=== PATIENT | male | born 1945 | race Caucasian/White ===

== ENCOUNTER 2018-11-17 19:31 | Inpatient (IN) | payer MEDICARE, OTHER, SELFPAY ==
[2018-11-17] VITALS (10 sets, daily range): BP systolic 103–163; BP diastolic 30–94; PULSE 97–114; RESP 12–36; TEMP 36.3–38.3; O2SAT 91–99; BMI 28.0
--- NOTE | 2018-11-17 19:32 | DI.RAD.S_ITS ---
PROCEDURE: XR CHEST 1V INDICATIONS: copd exacerbation, ++ sob TECHNIQUE: One view of the chest was acquired. COMPARISON: None. FINDINGS: Surgical changes and devices: Left-sided pacer. Lungs and pleura: Moderate air space opacity within the left lower lung. No pleural effusions or pneumothorax. Mediastinum: Mediastinal contours appear normal. Heart size is normal. Bones and chest wall: No suspicious bony lesions. Overlying soft tissues appear unremarkable. IMPRESSION: Left lower lobe pneumonia. Follow up plain films of the chest are recommended to ensure resolution, and to exclude underlying or central malignancy. Dictated by: Alicia Aguilar M.D. on 11/17/2018 at 20:14 Approved by: Alicia Aguilar M.D. on 11/17/2018 at 20:15
[2018-11-17 19:40] LABS: Add Manual Diff / Slide Review NO; Basophils Absolute Auto 100 /uL (0-100); Basophils Percent Auto 0.7 % (0-2); Eosinophils Absolute Auto 400 /uL (0-450); Eosinophils Percent Auto 1.9 % (2-4); Hematocrit 41.4 % (41-53); Hemoglobin 13.9 g/dL (13.5-17.5); Lymphocytes Absolute Auto 2600 /uL (1100-4500); Lymphocytes Percent Auto 11.6 % (25-40); Mean Corpuscular HGB Conc 33.5 % (30-36); Mean Corpuscular Hemoglobin 31.1 PG (26-34); Mean Corpuscular Volume 92.7 fL (80-100); Monocytes Absolute Auto 3000 /uL (0-900); Monocytes Percent Auto 13.3 % (3-14); Neutrophils Absolute Auto 16100 /uL (1500-7000); Neutrophils Percent Auto 72.5 % (50-75); Platelet Count 377 X10^3/uL (150-400); Red Blood Cell Count 4.46 X10^6/uL (4.5-5.9); Red Cell Distribution Width 14.5 % (11.6-14.8); White Blood Cell Count 22.2 X10^3/uL (4.5-11.0)
--- NOTE | 2018-11-17 19:51 | ED_ITS ---
HPI - SOB/Dyspnea General Chief Complaint: Shortness of Breath/Dyspnea Stated Complaint: Short of breath Time Seen by Provider: 11/17/18 19:36 Source: patient, family and EMS Mode of arrival: EMS Limitations: no limitations History of Present Illness 83-year-old male former smoker with history of COPD presents by ambulance with a chief complaint of 4 days of worsening trouble breathing. On arrival his pulse ox was in the 80s. He was given DuoNeb and then placed on CPAP which bumped his pulse ox to the low 90s. He denies any chest pain is not dizzy nor weak or lightheaded. He denies fever or shaking chills but has had some cough. His last hospitalization was in April MD Complaint: shortness of breath Onset (ago): day(s) Severity: moderate Consistency/Duration: constant Relieving factors: oxygen, rest and bronchodilators Exacerbating factors: exertion Known history of: COPD Associated symptoms: denies other symptoms Treatment prior to arrival: oxygen, bronchodilator and NIPPV Related Data Home oxygen amount: none Home Medications Medication Instructions Recorded Confirmed albuterol sulfate 1.25 mg INHALATION QID PRN 11/17/18 11/17/18 albuterol sulfate [Ventolin HFA] 2 puff INHALATION Q4-6H PRN 11/17/18 11/17/18 budesonide-formoterol [Symbicort] 2 puff INHALATION BID 11/17/18 11/17/18 famotidine [Pepcid AC] 20 mg PO DAILY 11/17/18 11/17/18 hydrocodone-acetaminophen 1 tab PO Q6H PRN 11/17/18 11/17/18 metoprolol succinate 25 mg PO DAILY 11/17/18 11/17/18 rivaroxaban [Xarelto] 20 mg PO DAILY 11/17/18 11/17/18 rosuvastatin [Crestor] 20 mg PO DAILY 11/17/18 11/17/18 sacubitril-valsartan [Entresto] 1 tab PO BID 11/17/18 11/17/18 sildenafil [Viagra] 25 mg PO DAILY PRN 11/17/18 11/17/18 sotalol 120 mg PO Q12H 11/17/18 11/17/18 tiotropium bromide [Spiriva 2 puff INHALATION DAILY 11/17/18 11/17/18 Respimat] Allergies Allergy/AdvReac Type Severity Reaction Status Date / Time No Known Drug Allergies Allergy Verified 11/17/18 19:52 Review of Systems Constitutional Denies chills, Denies fever(s), Denies lethargy and Denies weakness Eyes Denies change in vision, Denies eye discharge, Denies irritation and Denies loss of vision ENT Ears, Nose, Mouth, and Throat: Denies change in voice, Denies neck pain and Denies sore throat Cardiovascular Denies chest pain, Denies irregular heart rhythm, Denies lightheadedness, Denies palpitations, Reports dyspnea, Reports dyspnea on exertion and Denies orthopnea Respiratory Reports cough, Reports dyspnea, Reports dyspnea on exertion and Denies wheezing Gastrointestinal Gastrointestinal: Denies abdominal pain, Denies change in bowel habits, Denies diarrhea, Denies nausea and Denies vomiting Genitourinary Denies hematuria, Denies flank pain, Denies urinary incontinence and Denies urinary urgency Musculoskeletal Denies neck pain Integumentary/Breasts Denies pruritus, Denies erythema, Denies rash and Denies wounds Neurologic Denies confusion, Denies loss of vision and Denies weakness Psychiatric Denies anxiety, Denies confusion, Denies depression, Denies homicidal ideation and Denies suicidal ideation Endocrine Denies palpitations Hematologic/Lymphatic Denies easy bruising Allergic/Immunologic Denies wheezing [facility] Medical History (Updated 11/17/18 @ 23:06 by RAMIREZ Freeman) CHF (congestive heart failure) (Acute) CKD (chronic kidney disease) (Acute) COPD (chronic obstructive pulmonary disease) (Acute) Gout (Acute) HTN (hypertension) (Acute) Hyperlipidemia (Acute) Paroxysmal A-fib (Acute) Surgical History H/O heart artery stent (Acute) History of automatic internal cardiac defibrillator (AICD) (Acute) History of knee surgery (Acute) Social History (Updated 11/17/18 @ 19:51 by Kentrell Manuel DO) household members: spouse Smoking Status: Former smoker alcohol intake: current Social History (Updated 11/17/18 @ 19:51 by Kentrell Manuel DO) household members: spouse Smoking Status: Former smoker alcohol intake: current Exam Narrative Exam Narrative: GENERAL: 73M in obvious respiratory distress with use of accessory muscles and tachypnea, on BiPAP HEAD: Atraumatic. Normocephalic. No temporal or scalp tenderness. EYES: Pupils equal round and reactive. Extraocular motions intact. No scleral icterus. No injection or drainage. ENT: Nose without bleeding, purulent drainage or septal hematoma. Throat without erythema, tonsillar hypertrophy or exudate. Uvula midline. Airway patent. NECK: Trachea midline. No JVD or lymphadenopathy. Supple, nontender, no meningeal signs. CARDIOVASCULAR: Tachycardic rate with regular rhythm without murmurs, gallops, or rubs. RESPIRATORY: Tachypnea, decreased breath sounds bilaterally with prolonged expiratory phase and expiratory wheeze GASTROINTESTINAL: Abdomen soft, non-tender, nondistended. No hepato- splenomegaly, or palpable masses. No guarding. EXTREMITIES: No clubbing, cyanosis, or edema. No joint tenderness, effusion, or edema noted. BACK: Nontender without deformity or crepitance. No flank tenderness. NEURO: AOx3. SKIN: No rash or erythema. Initial Vital Signs Initial Vital Signs: Vital Signs Temperature 97.4 F L 11/17/18 19:39 Pulse Rate 107 H 11/17/18 19:39 Respiratory Rate 28 H 11/17/18 19:39 Blood Pressure 124/73 11/17/18 19:39 Pulse Oximetry 99 11/17/18 19:39 Course Orders Ordered: ED Orders 11/17/18 19:25 B Type Natriuretic Peptide Stat Complete Blood Count AUTO DIFF Stat Comprehensive Metabolic Panel Stat Procalcitonin Routine Troponin I Stat Uric Acid Routine 11/17/18 19:32 XR chest 1V Stat EKG-12 Lead Stat Measure peak expiratory flow ONCE RT Consult Eval and Treat Now 11/17/18 19:38 Lactate (Lactic Acid) Stat 11/17/18 19:42 Arterial Blood Gas Stat 11/17/18 20:14 BiPAP Ventilatory Support RT PROTOCOL 11/17/18 22:20 High flow/High humidity nasal Now 11/17/18 22:25 Consult to Dietitian, Adult Routine Consult to Discharge Planning Routine Consult to Respiratory Therapy Evaluate & Treat 11/17/18 22:26 Sputum Induction and collectio RT PROTOCOL 11/17/18 22:28 RT Consult Eval and Treat Now 11/17/18 22:41 Consult to Packer Inspector Routine 11/18/18 Basic Metabolic Panel Routine Complete Blood Count AUTO DIFF Routine Procalcitonin Routine 11/18/18 00:50 MRSA PCR Routine Acetaminophen (Tylenol) 650 mg PO Q4HR [facility] Last Admin: 11/18/18 00:31 Dose: 650 mg Albuterol (Ventolin) 2.5 mg INH [id number] PRN PRN Reason: Shortness Of Breath Or Wheezing Last Admin: 11/18/18 00:19 Dose: 2.5 mg Albuterol/Ipratropium (Duoneb) 3 ml INH [id number] [facility] Allopurinol (Zyloprim) 100 mg PO DAILY [facility] Bisacodyl (Dulcolax) 10 mg PO DAILY PRN PRN Reason: Constipation Docusate Sodium (Colace) 100 mg PO BID [facility] Guaifenesin (Mucinex) 600 mg PO Q12HR PRN PRN Reason: Cough Last Admin: 11/18/18 00:28 Dose: 600 mg Ceftriaxone Sodium/Dextrose (Rocephin) 2 gm in 50 mls @ 100 mls/hr IV Q24H [facility] Famotidine (Pepcid) 20 mg in 50 mls @ 200 mls/hr IV Q12HR [facility] Last Infusion: 11/18/18 01:01 Dose: 200 mls/hr Admin: 11/18/18 00:59 Dose: Not Given Admin: 11/18/18 00:30 Dose: 200 mls/hr Azithromycin 500 mg/ Dextrose 250 mls @ 250 mls/hr IV Q24H [facility] Stop: 11/19/18 22:31 Last Admin: 11/18/18 01:01 Dose: 250 mls/hr Sodium Chloride (Normal Saline 0.9%) 250 mls @ 21 mls/hr IV Q24H PRN PRN Reason: Flush Last Admin: 11/18/18 00:31 Dose: 21 mls/hr Methylprednisolone (Solu-Medrol 125 Mg Vial) 60 mg IV Q8H [facility] Metoprolol Succinate (Toprol Xl) 25 mg PO DAILY [facility] Non-Formulary Medication (Sacubitril-Valsartan [Entresto]) 1 tab PO BID [facility] Rivaroxaban (Xarelto) 20 mg PO DAILY [facility] Rosuvastatin Calcium (Crestor) 20 mg PO DAILY [facility] Sodium Chloride (Normal Saline 0.9% Flush) 10 ml IV PRN PRN PRN Reason: Flush Last Admin: 11/18/18 00:31 Dose: 10 ml Sodium Chloride (Normal Saline 0.9% Flush) 10 ml IV BID [facility] Sotalol HCl (Betapace) 120 mg PO Q12H [facility] Last Admin: 11/18/18 00:47 Dose: Not Given Discontinued Medications Acetaminophen (Tylenol) 650 mg PO NOW ONE Stop: 11/17/18 21:17 Last Admin: 11/17/18 21:17 Dose: 650 mg Albuterol/Ipratropium (Duoneb) 3 ml INH NOW ONE Stop: 11/17/18 19:48 Last Admin: 11/17/18 19:53 Dose: 3 ml Albuterol/Ipratropium (Duoneb) 3 ml INH NOW ONE Stop: 11/17/18 21:19 Last Admin: 11/17/18 21:18 Dose: 3 ml Ceftriaxone Sodium/Dextrose (Rocephin) 1 gm in 50 mls @ 100 mls/hr IV NOW ONE Stop: 11/17/18 21:56 Last Infusion: 11/17/18 22:34 Dose: 0 mls/hr Admin: 11/17/18 21:43 Dose: 100 mls/hr Ceftriaxone Sodium/Dextrose (Rocephin) 1 gm in 50 mls @ 100 mls/hr IV NOW ONE Stop: 11/17/18 23:02 Last Admin: 11/18/18 01:00 Dose: Not Given Methylprednisolone (Solu-Medrol 125 Mg Vial) 125 mg IV NOW ONE Stop: 11/17/18 19:48 Last Admin: 11/17/18 19:52 Dose: 125 mg Ondansetron HCl (Zofran) 4 mg IV NOW ONE Stop: 11/17/18 20:26 Last Admin: 11/17/18 20:26 Dose: 4 mg Reevaluation(s) Reevaluation #1: The patient did improve with the above-stated therapies in demanded we removed the BiPAP. He did well on multiple bronchodilators as well as the high-flow high humidity nasal cannula Consultations Consultation #1: Hospitalist happy to accept Vital Signs - 8 hr 11/17/18 19:39 11/17/18 20:09 11/17/18 20:51 Temperature 97.4 F L 100.4 F H Pulse Rate 107 H 114 H 105 H Respiratory Rate 28 H 30 H 29 H Blood Pressure 124/73 Blood Pressure [Left Arm] 163/94 H 117/30 L Pulse Oximetry 99 96 93 11/17/18 21:17 11/17/18 21:19 11/17/18 21:40 Temperature 100.5 F H Pulse Rate 106 H 103 H Respiratory Rate 26 H 23 Blood Pressure Blood Pressure [Left Arm] 114/93 H Pulse Oximetry 91 11/17/18 22:10 11/17/18 22:25 11/17/18 22:33 Temperature 100.9 F H 99.5 F 100.9 F H Pulse Rate 97 H 103 H Respiratory Rate 22 31 H Blood Pressure 103/72 104/63 Blood Pressure [Left Arm] Pulse Oximetry 94 92 11/18/18 00:20 11/18/18 00:25 Temperature 98.0 F Pulse Rate 94 H 92 H Respiratory Rate 30 H 33 H Blood Pressure 118/61 Blood Pressure [Left Arm] Pulse Oximetry 91 94 MDM - SOB/Dyspnea Lab Data Result diagrams: 11/17/18 19:25 11/17/18 19:25 Lab Results 11/17/18 11/17/18 11/17/18 Range/Units 19:25 19:25 19:25 WBC 22.2 H (4.5-11.0) X10^3/uL RBC 4.46 L (4.5-5.9) X10^6/uL Hgb 13.9 (13.5-17.5) g/dL Hct 41.4 (41-53) % MCV 92.7 (80-100) fL MCH 31.1 (26-34) PG MCHC 33.5 (30-36) % RDW 14.5 (11.6-14.8) % Plt Count 377 (150-400) X10^3/uL Neut % (Auto) 72.5 (50-75) % Lymph % (Auto) 11.6 L (25-40) % [place] % (Auto) 13.3 (3-14) % Eos % (Auto) 1.9 L (2-4) % Baso % (Auto) 0.7 (0-2) % Neut # (Auto) 01571 H (5545-4554) /uL Lymph # (Auto) 2600 (4760-1728) /uL [place] # (Auto) 3000 H (0-900) /uL Eos # (Auto) 400 (0-450) /uL Baso # (Auto) 100 (0-100) /uL ABG pH (7.35-7.45) ABG pCO2 (35-45) mmHg ABG pO2 (80-100) mmHg ABG HCO3 (22-26) mmol/L ABG Total CO2 (21-31) mmol/L ABG O2 Saturation (95-100) % ABG Base Excess (-2-2) mmol/L FiO2 Sodium 134 L (137-145) mmol/L Potassium 4.8 (3.4-5.1) mmol/L Chloride 94 L (98-107) mmol/L Carbon Dioxide 28 (22-32) mmol/L BUN 32 H (9-20) mg/dL Creatinine 1.60 H (0.66-1.25) mg/dL Estimated GFR 41.6 L (>60) mL/min BUN/Creatinine Ratio 20.0 (6-22) Glucose 130 H (80-110) mg/dL Lactate (0.7-2.1) mmol/L Uric Acid (3.5-8.5) mg/dL Calcium 10.5 H (8.4-10.2) mg/dL Total Bilirubin 0.7 (0.2-1.3) mg/dL AST 28 (17-59) IU/L ALT 33 (21-72) IU/L Alkaline Phosphatase 57 (38-126) U/L Troponin I 0.028 (0.01-0.034) ng/mL B-Natriuretic Peptide (<100) Total Protein 8.0 (6.3-8.2) g/dL Albumin 4.3 (3.5-5.0) g/dL Globulin 3.7 (1.7-4.1) g/dL Albumin/Globulin Ratio 1.2 (1.0-2.8) Procalcitonin (<0.5) ng/mL Chlamy pneumoniae PCR (Not Detect) Adenovirus (PCR) (Not Detect) B.parapertussis DNA PCR (Not Detect) Coronavirus OC43 (PCR) (Not Detect) Coronavirus HKU1 (PCR) (Not Detect) Coronavirus 229E (PCR) (Not Detect) Coronavirus NL63 (PCR) (Not Detect) Human Metapneumovir PCR (Not Detect) Influenza Type A (PCR) (Not Detect) Influenza Type B (PCR) (Not Detect) M. pneumoniae (PCR) (Not Detect) Parainfluenza 1 (PCR) (Not Detect) Parainfluenza 2 (PCR) (Not Detect) Parainfluenza 3 (PCR) (Not Detect) Parainfluenza 4 (PCR) (Not Detect) RSV (PCR) (Not Detect) Entero/Rhino (PCR) (Not Detect) 11/17/18 11/17/18 11/17/18 Range/Units 19:25 19:25 19:25 WBC (4.5-11.0) X10^3/uL RBC (4.5-5.9) X10^6/uL Hgb (13.5-17.5) g/dL Hct (41-53) % MCV (80-100) fL MCH (26-34) PG MCHC (30-36) % RDW (11.6-14.8) % Plt Count (150-400) X10^3/uL Neut % (Auto) (50-75) % Lymph % (Auto) (25-40) % [place] % (Auto) (3-14) % Eos % (Auto) (2-4) % Baso % (Auto) (0-2) % Neut # (Auto) (8384-1026) /uL Lymph # (Auto) (2028-5415) /uL [place] # (Auto) (0-900) /uL Eos # (Auto) (0-450) /uL Baso # (Auto) (0-100) /uL ABG pH (7.35-7.45) ABG pCO2 (35-45) mmHg ABG pO2 (80-100) mmHg ABG HCO3 (22-26) mmol/L ABG Total CO2 (21-31) mmol/L ABG O2 Saturation (95-100) % ABG Base Excess (-2-2) mmol/L FiO2 Sodium (137-145) mmol/L Potassium (3.4-5.1) mmol/L Chloride (98-107) mmol/L Carbon Dioxide (22-32) mmol/L BUN (9-20) mg/dL Creatinine (0.66-1.25) mg/dL Estimated GFR (>60) mL/min BUN/Creatinine Ratio (6-22) Glucose (80-110) mg/dL Lactate (0.7-2.1) mmol/L Uric Acid 9.1 H (3.5-8.5) mg/dL Calcium (8.4-10.2) mg/dL Total Bilirubin (0.2-1.3) mg/dL AST (17-59) IU/L ALT (21-72) IU/L Alkaline Phosphatase (38-126) U/L Troponin I (0.01-0.034) ng/mL B-Natriuretic Peptide 1430 H (<100) Total Protein (6.3-8.2) g/dL Albumin (3.5-5.0) g/dL Globulin (1.7-4.1) g/dL Albumin/Globulin Ratio (1.0-2.8) Procalcitonin 2.43 H (<0.5) ng/mL Chlamy pneumoniae PCR (Not Detect) Adenovirus (PCR) (Not Detect) B.parapertussis DNA PCR (Not Detect) Coronavirus OC43 (PCR) (Not Detect) Coronavirus HKU1 (PCR) (Not Detect) Coronavirus 229E (PCR) (Not Detect) Coronavirus NL63 (PCR) (Not Detect) Human Metapneumovir PCR (Not Detect) Influenza Type A (PCR) (Not Detect) Influenza Type B (PCR) (Not Detect) M. pneumoniae (PCR) (Not Detect) Parainfluenza 1 (PCR) (Not Detect) Parainfluenza 2 (PCR) (Not Detect) Parainfluenza 3 (PCR) (Not Detect) Parainfluenza 4 (PCR) (Not Detect) RSV (PCR) (Not Detect) Entero/Rhino (PCR) (Not Detect) 11/17/18 11/17/18 11/18/18 Range/Units 19:38 19:42 00:10 WBC (4.5-11.0) X10^3/uL RBC (4.5-5.9) X10^6/uL Hgb (13.5-17.5) g/dL Hct (41-53) % MCV (80-100) fL MCH (26-34) PG MCHC (30-36) % RDW (11.6-14.8) % Plt Count (150-400) X10^3/uL Neut % (Auto) (50-75) % Lymph % (Auto) (25-40) % [place] % (Auto) (3-14) % Eos % (Auto) (2-4) % Baso % (Auto) (0-2) % Neut # (Auto) (5009-5548) /uL Lymph # (Auto) (6427-0064) /uL [place] # (Auto) (0-900) /uL Eos # (Auto) (0-450) /uL Baso # (Auto) (0-100) /uL ABG pH 7.38 (7.35-7.45) ABG pCO2 40.9 (35-45) mmHg ABG pO2 111 H (80-100) mmHg ABG HCO3 24 (22-26) mmol/L ABG Total CO2 26 (21-31) mmol/L ABG O2 Saturation 98 (95-100) % ABG Base Excess -1.0 (-2-2) mmol/L FiO2 45 Sodium (137-145) mmol/L Potassium (3.4-5.1) mmol/L Chloride (98-107) mmol/L Carbon Dioxide (22-32) mmol/L BUN (9-20) mg/dL Creatinine (0.66-1.25) mg/dL Estimated GFR (>60) mL/min BUN/Creatinine Ratio (6-22) Glucose (80-110) mg/dL Lactate 2.0 (0.7-2.1) mmol/L Uric Acid (3.5-8.5) mg/dL Calcium (8.4-10.2) mg/dL Total Bilirubin (0.2-1.3) mg/dL AST (17-59) IU/L ALT (21-72) IU/L Alkaline Phosphatase (38-126) U/L Troponin I (0.01-0.034) ng/mL B-Natriuretic Peptide (<100) Total Protein (6.3-8.2) g/dL Albumin (3.5-5.0) g/dL Globulin (1.7-4.1) g/dL Albumin/Globulin Ratio (1.0-2.8) Procalcitonin (<0.5) ng/mL Chlamy pneumoniae PCR Not detected (Not Detect) Adenovirus (PCR) Not detected (Not Detect) B.parapertussis DNA PCR Not detected (Not Detect) Coronavirus OC43 (PCR) Not detected (Not Detect) Coronavirus HKU1 (PCR) Not detected (Not Detect) Coronavirus 229E (PCR) Not detected (Not Detect) Coronavirus NL63 (PCR) Not detected (Not Detect) Human Metapneumovir PCR Not detected (Not Detect) Influenza Type A (PCR) Not detected (Not Detect) Influenza Type B (PCR) Not detected (Not Detect) M. pneumoniae (PCR) Not detected (Not Detect) Parainfluenza 1 (PCR) Not detected (Not Detect) Parainfluenza 2 (PCR) Not detected (Not Detect) Parainfluenza 3 (PCR) Detected H (Not Detect) Parainfluenza 4 (PCR) Not detected (Not Detect) RSV (PCR) Not detected (Not Detect) Entero/Rhino (PCR) Not detected (Not Detect) MDM Narrative Medical decision making narrative: 73-year-old male with history of AFib on Xarelto who presents in severe respiratory distress. He improves with BiPAP and bronchodilators. Chest x-ray shows pneumonia. Elevated white blood cell count and procalcitonin further suggest infectious etiology with exacerbation of COPD. Discharge Plan Departure Patient Disposition: Admitted As Inpatient Clinical Impression: Acute and chronic respiratory failure with hypoxia, Acute exacerbation of chronic obstructive pulmonary disease (COPD) Pneumonia Qualifiers: Pneumonia type: due to unspecified organism Laterality: left Lung location: lower lobe of lung Qualified Code(s): J18.1 - Lobar pneumonia, unspecified organism Discharge Date/Time: 11/17/18 22:34 Interventions: ED Discharge Assessment Last Done: 11/17/18 22:10 Admit Date/Time: 11/17/18 21:57 Admit Provider: Wing Trevino
[2018-11-17] MEDS: methylPREDNISolone 125 MG/2 ML VIAL IV (19:52)
[2018-11-17] MEDS: ALBUTEROL/IPRATROPIUM 3 ML AMPUL INH ×2 (19:53→21:18)
[2018-11-17 19:54] LABS: Alanine Aminotransferase 33 IU/L (21-72); Albumin 4.3 g/dL (3.5-5.0); Albumin Globulin Ratio 1.2 (1.0-2.8); Alkaline Phosphatase 57 U/L (38-126); Aspartate Aminotransferase 28 IU/L (17-59); Bilirubin Total 0.7 mg/dL (0.2-1.3); Blood Urea Nitrogen 32 mg/dL (9-20); Calcium 10.5 mg/dL (8.4-10.2); Carbon Dioxide 28 mmol/L (22-32); Chloride 94 mmol/L (98-107); Estimated Glomerular Filt Rate 41.6 mL/min (>60); Globulin 3.7 g/dL (1.7-4.1); Glucose 130 mg/dL (80-110); HEMOLYSIS < 15 (0-50); Potassium 4.8 mmol/L (3.4-5.1); Sodium 134 mmol/L (137-145)
[2018-11-17 20:06] LABS: Troponin I 0.028 ng/mL (0.01-0.034)
[2018-11-17 20:09] LABS: B Type Natriuretic Peptide 1430 (<100)
[2018-11-17 20:10] LABS: Fractionated Inspired Oxygen 45; HCO3 ABG 24 mmol/L (22-26); Oxygen Saturation ABG 98 % (95-100); PCO2 ABG 40.9 mmHg (35-45); PO2 ABG 111 mmHg (80-100); TCO2 ABG 26 mmol/L (21-31); pH ABG 7.38 (7.35-7.45)
--- NOTE | 2018-11-17 20:19 | PC.NURSE ---
Pt started on bipap originally upon arrival. Reports unable to cough and requested bipap be removed. On NC at this time at 6L.
[2018-11-17] MEDS: ONDANSETRON 4 MG/2 ML INJ IV (20:26)
[2018-11-17] MEDS: ACETAMINOPHEN 325 MG TABLET 650 MG PO (21:17)
[2018-11-17] MEDS: CEFTRIAXONE 1 GM/50 ML FROZ.PIGGY IV (21:43)
[2018-11-17 22:24] LABS: Procalcitonin 2.43 ng/mL (<0.5)
[2018-11-17 22:29] LABS: Uric Acid 9.1 mg/dL (3.5-8.5)
--- NOTE | 2018-11-17 22:44 | PM.HP.1 ---
History of Present Illness Date Patient Seen: 11/17/18 Time Patient Seen: 22:05 Chief complaint: Short of breath Narrative: Kevon Downing is a 73-year-old male patient with history significant for COPD, congestive heart failure, paroxysmal atrial fibrillation on Xarelto, hypertension, chronic kidney disease stage III, hyperlipidemia and gout who presents to the emergency department via EMS with 5 days of worsening shortness of breath. The patient states his shortness of breath began 5 days ago and has been progressively worse each day. He has had progressive dyspnea on exertion and weakness. He has had no fevers at home and states he is always cold but has been experiencing chills. The patient has had prior myocardial infarction and placement of 2 stents in addition to AICD. He has been a past smoker of 2 packs per day for over 30 years and is currently followed by Dr. Navarro, cvt tech and Dr. Dickson, mcat tutor with [facility] cardiology. 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 The patient's experience symptoms of upper respiratory infection approximately 1 week ago but no other sick contacts. Patient denies complaints of fevers, headache or dizziness, chest pain or palpitations. He denies abdominal pain, nausea or vomiting though he became nauseous in the ER for which he received Zofran. He has issues of chronic constipation and had a recent gouty flare in the left great toe. Patient is on Xarelto and denies untoward bleeding, bruising or blood in the stool. Upon arrival in the ER the patient was initially afebrile at 100.5 with a heart rate of 107, blood pressure 124/73, respiratory rate of 28 and oxygen saturation 99 on BiPAP initiated by EMS prior to arrival. In the ER the patient received 2 DuoNeb treatments Solu-Medrol 125 mg, Zofran and Tylenol with improvement in his presentation. Transitioned from BiPAP to high-flow nasal cannula at 35%. Chest x-ray revealed left lower lobe pneumonia and normal heart size without evidence pulmonary edema. Twelve lead EKG demonstrates sinus tachycardia with multifocal PVCs, inferior lateral Q-waves and no signs of ischemia. On chemistry the patient has white count of 22.2 with hemoglobin 13.9 hematocrit of 41.4 with platelets of 377. On chemistries is electrolytes are normal however his BUN is 32 with a creatinine of 1.6 with an EGFR of 41.6. His nonfasting glucose was 130. Lactic acid is 2.0 and BNP is notably elevated at 1430. The patient will be admitted to the ICU related to his extremities some presentation and for close monitoring. Patient History Medical History (Updated 11/17/18 @ 23:06 by RAMIREZ Freeman) CHF (congestive heart failure) (Acute) CKD (chronic kidney disease) (Acute) COPD (chronic obstructive pulmonary disease) (Acute) Gout (Acute) HTN (hypertension) (Acute) Hyperlipidemia (Acute) Paroxysmal A-fib (Acute) Surgical History H/O heart artery stent (Acute) History of automatic internal cardiac defibrillator (AICD) (Acute) History of knee surgery (Acute) Social History (Updated 11/17/18 @ 19:51 by Kentrell Manuel DO) household members: spouse Smoking Status: Former smoker alcohol intake: current Family & Social History Social History: household members spouse Prior Living Arrangements House Safety & Behavioral: Feels Safe in Current Yes Environment Tobacco & Substance use: Smoking Status Former smoker alcohol intake current alcohol intake frequency 3 or more drinks per day Substance Use Type does not use Comment: The patient lives in a single family sitting level home however is here staying on his boat for the holiday weekend with his to whom he has been for 24 years. He never knew his father and his mother at age 89 from a stroke. He has a brother was addiction to narcotics and a sister has multiple sclerosis and obesity. Smoking: The patient smoked 2 packs per day for 30 years and quit 8 years ago. Alcohol: The patient consumes 3 drinks daily. Substance use: The patient denies recreation pharmaceuticals verbal or cannabis products. Advanced directives: Indirect conversation with the patient with his at bedside the patient wishes to be a FULL CODE and is agreeable to intubation but states his desire not to remain on long-term life support. He designates his Sissy to be his surrogate decision maker. Meds Home Medications Medication Instructions Recorded Confirmed Type albuterol sulfate 1.25 mg INHALATION QID PRN 11/17/18 11/17/18 History albuterol sulfate [Ventolin HFA] 2 puff INHALATION Q4-6H PRN 11/17/18 11/17/18 History budesonide-formoterol [Symbicort] 2 puff INHALATION BID 11/17/18 11/17/18 History famotidine [Pepcid AC] 20 mg PO DAILY 11/17/18 11/17/18 History hydrocodone-acetaminophen 1 tab PO Q6H PRN 11/17/18 11/17/18 History metoprolol succinate 25 mg PO DAILY 11/17/18 11/17/18 History rivaroxaban [Xarelto] 20 mg PO DAILY 11/17/18 11/17/18 History rosuvastatin [Crestor] 20 mg PO DAILY 11/17/18 11/17/18 History sacubitril-valsartan [Entresto] 1 tab PO BID 11/17/18 11/17/18 History sildenafil [Viagra] 25 mg PO DAILY PRN 11/17/18 11/17/18 History sotalol 120 mg PO Q12H 11/17/18 11/17/18 History tiotropium bromide [Spiriva 2 puff INHALATION DAILY 11/17/18 11/17/18 History Respimat] Allergies Allergy/AdvReac Type Severity Reaction Status Date / Time No Known Drug Allergies Allergy Verified 11/17/18 19:52 Review of Systems Review of Systems All systems reviewed & are unremarkable except as noted in HPI and below Exam Vital Signs (past 8 hours): - 11/17/18 19:39 11/17/18 20:09 11/17/18 20:51 Temperature 97.4 F L 100.4 F H Pulse Rate 107 H 114 H 105 H Respiratory Rate 28 H 30 H 29 H Blood Pressure 124/73 Blood Pressure [Left Arm] 163/94 H 117/30 L Pulse Oximetry 99 96 93 11/17/18 21:17 11/17/18 21:19 11/17/18 21:40 Temperature 100.5 F H Pulse Rate 106 H 103 H Respiratory Rate 26 H 23 Blood Pressure Blood Pressure [Left Arm] 114/93 H Pulse Oximetry 91 11/17/18 22:10 11/17/18 22:25 11/17/18 22:33 Temperature 100.9 F H 99.5 F 100.9 F H Pulse Rate 97 H 103 H Respiratory Rate 22 31 H Blood Pressure 103/72 104/63 Blood Pressure [Left Arm] Pulse Oximetry 94 92 Fraction of Inspired Oxygen 33 Oxygen Delivery Method High Flow Nasal Cannula Oxygen Flow Rate 60 Narrative Exam Narrative: GENERAL APPEARANCE: well developed, adequately nourished, febrile with moderate dyspnea. HEAD: Normocephalic, atraumatic, no scalp lesions. EYES: pupils equal, round, reactive to light and accommodation, sclera non-icteric, extraocular movement intact without nystagmus. EARS: normal external structures, no ear pain NOSE: sinuses non tender to percussion, no rhinorrhea ORAL CAVITY: mucosa moist without lesions or exudate, partial dentition, missing teeth, palate normal, tongue in midline. THROAT: normal, no erythema, no exudate, pharynx normal, uvula midline. NECK/THYROID: neck supple, no JVD appreciated, no carotid bruit, no thyromegaly, trachea midline. LYMPH NODES: no cervical or supraclavicular lymphadenopathy. SKIN: warm and dry, no suspicious lesions, no rashes, good turgor. HEART: regular rate and rhythm, S1-S2 1/6 systolic murmur, no rubs or gallops, brisk capillary refill, no pedal edema LUNGS: Diminished breath sounds on auscultation bilaterally, no coarseness crackles or wheezing, no cough CHEST: Increased AP diameter, symmetrical movement, 4 word dyspnea, mild supraclavicular retractions, no pain to AP and lateral compression. ABDOMEN: Soft, round, no distention, no epigastric or abdominal tenderness on palpation, no guarding or peritoneal signs, no organomegaly, no flank or suprapubic tenderness, active bowel tones. BACK: Normal curvature, nontender to palpation, no CVA tenderness on percussion EXTREMITIES: moves all extremities, strength is 5/5 and symmetrical NEUROLOGIC: AAO x4, cranial nerves II-XII grossly intact , motor strength normal upper and lower extremities, sensory exam intact to light touch, mildly hard of hearing, hearing aids at bedside PSYCH: alert, cognitive function intact, good eye contact, stable mood with congruent affect Objective Labs Result Diagrams: 11/17/18 19:25 11/17/18 19:25 Labs: Laboratory Results - last 24 hr 11/17/18 11/17/18 11/17/18 19:25 19:25 19:25 WBC 22.2 H RBC 4.46 L Hgb 13.9 Hct 41.4 MCV 92.7 MCH 31.1 MCHC 33.5 RDW 14.5 Plt Count 377 Neut % (Auto) 72.5 Lymph % (Auto) 11.6 L [place] % (Auto) 13.3 Eos % (Auto) 1.9 L Baso % (Auto) 0.7 Neut # (Auto) 36330 H Lymph # (Auto) 2600 [place] # (Auto) 3000 H Eos # (Auto) 400 Baso # (Auto) 100 ABG pH ABG pCO2 ABG pO2 ABG HCO3 ABG Total CO2 ABG O2 Saturation ABG Base Excess FiO2 Sodium 134 L Potassium 4.8 Chloride 94 L Carbon Dioxide 28 BUN 32 H Creatinine 1.60 H Estimated GFR 41.6 L BUN/Creatinine Ratio 20.0 Glucose 130 H Lactate Uric Acid Calcium 10.5 H Total Bilirubin 0.7 AST 28 ALT 33 Alkaline Phosphatase 57 Troponin I 0.028 B-Natriuretic Peptide Total Protein 8.0 Albumin 4.3 Globulin 3.7 Albumin/Globulin Ratio 1.2 Procalcitonin 11/17/18 11/17/18 11/17/18 19:25 19:25 19:25 WBC RBC Hgb Hct MCV MCH MCHC RDW Plt Count Neut % (Auto) Lymph % (Auto) [place] % (Auto) Eos % (Auto) Baso % (Auto) Neut # (Auto) Lymph # (Auto) [place] # (Auto) Eos # (Auto) Baso # (Auto) ABG pH ABG pCO2 ABG pO2 ABG HCO3 ABG Total CO2 ABG O2 Saturation ABG Base Excess FiO2 Sodium Potassium Chloride Carbon Dioxide BUN Creatinine Estimated GFR BUN/Creatinine Ratio Glucose Lactate Uric Acid 9.1 H Calcium Total Bilirubin AST ALT Alkaline Phosphatase Troponin I B-Natriuretic Peptide 1430 H Total Protein Albumin Globulin Albumin/Globulin Ratio Procalcitonin 2.43 H 11/17/18 11/17/18 19:38 19:42 WBC RBC Hgb Hct MCV MCH MCHC RDW Plt Count Neut % (Auto) Lymph % (Auto) [place] % (Auto) Eos % (Auto) Baso % (Auto) Neut # (Auto) Lymph # (Auto) [place] # (Auto) Eos # (Auto) Baso # (Auto) ABG pH 7.38 ABG pCO2 40.9 ABG pO2 111 H ABG HCO3 24 ABG Total CO2 26 ABG O2 Saturation 98 ABG Base Excess -1.0 FiO2 45 Sodium Potassium Chloride Carbon Dioxide BUN Creatinine Estimated GFR BUN/Creatinine Ratio Glucose Lactate 2.0 Uric Acid Calcium Total Bilirubin AST ALT Alkaline Phosphatase Troponin I B-Natriuretic Peptide Total Protein Albumin Globulin Albumin/Globulin Ratio Procalcitonin Assessment & Plan Assessment & Plan narrative: The patient is admitted to the ICU related to ongoing dyspnea, work of breathing related to pneumonia and multiple comorbid conditions requiring close monitoring. 1. Acute on chronic hypoxic respiratory failure, improving -past smoker 2 packs per day for 30 years and history of COPD. At baseline the patient can walk a couple of blocks slowly. -patient has had 4 days of progressive dyspnea, increasing dyspnea on exertion, weakness and chills -in the field the patient had a pulse oximetry in the 80s per EMS and the patient was started on BiPAP prior to arrival the hospital. -patient remained tachypneic with an ABG revealing a pH of 7.38, pCO2 of 40.9, PO2 of 111, bicarb of 24 and base excess of -1 while on BiPAP at 45% FiO2. -patient received Solu-Medrol 125 mg in the emergency department. Will continue Solu-Medrol 60 mg every 8 hours. -DuoNeb treatments every 6 hours with albuterol nebulizer treatments every 2 hours as needed. -respiratory therapy consulting with heated high-flow oxygen to titrate to SpO2 88-92%. -will obtain sputum culture as well as respiratory PCR panel. 2. Acute Left lower lobe pneumonia, present on admission. -chest x-ray reveals left lower lobe pneumonia, WBCs are 22.2, lactic acid 2.0 and procalcitonin obtained at 2.43. -azithromycin 500 mg IV daily for 3 days. -ceftriaxone 1 g given in the emergency department, 2nd g administered on admission, will continue ceftriaxone 2 g IV daily. -respiratory supports as noted above. -guaifenesin 600 mg p.o. twice daily. -will follow CBC and procalcitonin. 3. Paroxysmal atrial fibrillation, stable -patient in sinus tachycardia with multifocal PVCs upon arrival without evidence of ischemia, no complaints of chest pain -history of NC with stents x2 with Q-waves inferior lateral on 12 lead EKG. Per family report most recent echo reveals a 30% EF. -BMP is 1430, chest x-ray does not reveal evidence of pulmonary edema or pulmonary vascular congestion. Patient appears euvolemic on exam. -continue patient's home sotalol at 120 mg twice daily and metoprolol succinate 25 mg daily. -continue patient's home medication of Xarelto 20 mg daily. 4. Chronic gout, not present on admission -patient with recent gouty flare in the left great toe with history of gout in the knees. -patient is on no uric acid lowering medication but has previously been prescribed allopurinol. -will obtain a uric acid level as the patient may need diuresis which would exacerbate and possibly trigger a gouty flare. 5. Chronic kidney disease stage III, presumed stable. -BUN is 32 with creatinine of 1.6, EGFR 41.6, BUN creatinine ratio is 20. -patient's reports patient has 50% kidney function and has been under the care of Nephrology. -patient appears adequately hydrated and is not on diuretic therapy, will renal dose and minimize the use of nose for a toxic agents. 6. Chronic hypertension, stable -patient has remained hemodynamically stable, blood pressure time of exam is 103/72. -patient is taking metoprolol however per family is intended for rhythm management. 7. Hyperlipidemia, resume stable -continue home medication of rosuvastatin 20 mg daily. The patient is admitted to the hospital due to severity of symptoms, risk of complications and adverse events. The patient will be admitted inpatient with expected length of stay to be greater than 2 midnights. Scores GCS Theodora coma scale eye opening: Spontaneous Theodora coma scale verbal response: Orientated Roosevelt coma scale motor response: Obey commands Theodora coma scale total score: 15 SOFA PaO2/FIO2: < 300 mmHg Platelets: >= 150 Bilirubin: < 1.2 mg/dL Hypotension: MAP >= 70 mmHg Roosevelt Coma Scale: 15 Renal: Creatinine 1.2-1.9 mg/dL SOFA Score: 3
--- NOTE | 2018-11-17 22:49 | P.HP_ITS ---
History of Present Illness Date Patient Seen: 11/17/18 Time Patient Seen: 22:05 Chief complaint: Short of breath Narrative: Kevon Downing is a 73-year-old male patient with history sig nificant for COPD, congestive heart failure, paroxysmal atrial fibrillation on Xarelto, hypertension, chronic kidney disease stage III, hyperlipidemia and gout who presents to the emergency department via EMS with 5 days of worsening shortness of breath. The patient states his shortness of breath began 5 days ago and has been progressively worse each day. He has had progressive dyspnea on exertion and weakness. He has had no fevers at home and states he is always cold but has been experiencing chills. The patient has had prior myocardial infarction and placement of 2 stents in addition to AICD. He has been a past smoker of 2 packs per day for over 30 years and is currently followed by Dr. Navarro, utility worker production and Dr. Dickson, transformation manager with [facility] cardiology. 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 The patient's experience symptoms of upper respiratory infection approximately 1 week ago but no other sick contacts. Patient denies complaints of fevers, headache or dizziness, chest pain or palpitations. He denies abdominal pain, nausea or vomiting though he became nauseous in the ER for which he received Zofran. He has issues of chronic constipation and had a recent gouty flare in the left great toe. Patient is on Xarelto and denies untoward bleeding, bruising or b lood in the stool. Upon arrival in the ER the patient was initially afebrile at 100.5 with a heart rate of 107, blood pressure 124/73, respiratory rate of 28 and oxygen saturation 99 on BiPAP initiated by EMS prior to arrival. In the ER the patient received 2 DuoNeb treatments Solu-Medrol 125 mg, Zofran and Tylenol with improvement in his presentation. Transitioned from BiPAP to high-flow nasal cannula at 35%. Chest x-ray revealed left lower lobe pneumonia and normal heart size without evidence pulmonary edema. Twelve lead EKG demonstrates sinus tachycardia with multifocal PVCs, inferior lateral Q-waves and no signs of ischemia. On chemistry the patient has white count of 22.2 with hemoglobin 13.9 hematocrit of 41.4 with platelets of 377. On chemistries is electrolytes are normal however his BUN is 32 with a creatinine of 1.6 with an EGFR of 41.6. His nonfasting glucose was 130. Lactic acid is 2.0 and BNP is notably elevated at 1430. The patient will be admitted to the ICU related to his extremities some presentation and for close monitoring. Patient History Medical History (Updated 11/17/18 @ 23:06 by RAMIREZ Freeman) CHF (congestive heart failure) (Acute) CKD (chronic kidney disease) (Acute) COPD (chronic obstructive pulmonary disease) (Acute) Gout (Acute) HTN (hypertension) (Acute) Hyperlipidemia (Acute) Paroxysmal A-fib (Acute) Surgical History H/O heart artery stent (Acute) History of automatic internal cardiac defibrillator (AICD) (Acute) History of knee surgery (Acute) Social History (Updated 11/17/18 @ 19:51 by Kentrell Manuel DO) household members: spouse Smoking Status: Former smoker alcohol intake: current Family & Social History Social History: household members spouse Prior Living Arrangements House Safety & Behavioral: Feels Safe in Current Yes Environment Tobacco & Substance use: Smoking Status Former smoker alcohol intake current alcohol intake frequency 3 or more drinks per day Substance Use Type does not use Comment: The patient lives in a single family sitting level home however is here staying on his boat for the holiday weekend with his to whom he has been for 24 years. He never knew his father and his mother at age 89 from a stroke. He has a brother was addiction to narcotics and a sister has multiple sclerosis and obesity. Smoking: The patient smoked 2 packs per day for 30 years and quit 8 years ago. Alcohol: The patient consumes 3 drinks daily. Substance use: The patient denies recreation pharmaceuticals verbal or cannabis products. Advanced directives: Indirect conversation with the patient with his at bedside the patient wishes to be a FULL CODE and is agreeable to intubation but states his desire not to remain on long-term life support. He designates his Sissy to be his surrogate decision maker. Meds Home Medications Medication Instructions Recorded Confirmed Type albuterol sulfate 1.25 mg INHALATION QID PRN 11/17/18 11/17/18 History albuterol sulfate [Ventolin HFA] 2 puff INHALATION Q4-6H PRN 11/17/18 11/17/18 History budesonide-formoterol [Symbicort] 2 puff INHALATION BID 11/17/18 11/17/18 History famotidine [Pepcid AC] 20 mg PO DAILY 11/17/18 11/17/18 History hydrocodone-acetaminophen 1 tab PO Q6H PRN 11/17/18 11/17/18 History metoprolol succinate 25 mg PO DAILY 11/17/18 11/17/18 History rivaroxaban [Xarelto] 20 mg PO DAILY 11/17/18 11/17/18 History rosuvastatin [Crestor] 20 mg PO DAILY 11/17/18 11/17/18 History sacubitril-valsartan [Entresto] 1 tab PO BID 11/17/18 11/17/18 History sildenafil [Viagra] 25 mg PO DAILY PRN 11/17/18 11/17/18 History sotalol 120 mg PO Q12H 11/17/18 11/17/18 History tiotropium bromide [Spiriva 2 puff INHALATION DAILY 11/17/18 11/17/18 History Respimat] Allergies Allergy/AdvReac Type Severity Reaction Status Date / Time No Known Drug Allergies Allergy Verified 11/17/18 19:52 Review of Systems Review of Systems All systems reviewed & are unremarkable except as noted in HPI and below Exam Vital Signs (past 8 hours): - 11/17/18 19:39 11/17/18 20:09 11/17/18 20:51 Temperature 97.4 F L 100.4 F H Pulse Rate 107 H 114 H 105 H Respiratory Rate 28 H 30 H 29 H Blood Pressure 124/73 Blood Pressure [Left Arm] 163/94 H 117/30 L Pulse Oximetry 99 96 93 11/17/18 21:17 11/17/18 21:19 11/17/18 21:40 Temperature 100.5 F H Pulse Rate 106 H 103 H Respiratory Rate 26 H 23 Blood Pressure Blood Pressure [Left Arm] 114/93 H Pulse Oximetry 91 11/17/18 22:10 11/17/18 22:25 11/17/18 22:33 Temperature 100.9 F H 99.5 F 100.9 F H Pulse Rate 97 H 103 H Respiratory Rate 22 31 H Blood Pressure 103/72 104/63 Blood Pressure [Left Arm] Pulse Oximetry 94 92 Fraction of Inspired Oxygen 33 Oxygen Delivery Method High Flow Nasal Cannula Oxygen Flow Rate 60 Narrative Exam Narrative: GENERAL APPEARANCE: well developed, adequately nourished, febrile with moderate dyspnea. HEAD: Normocephalic, atraumatic, no scalp lesions. EYES: pupils equal, round, reactive to light and accommodation, sclera non- icteric, extraocular movement intact without nystagmus. EARS: normal external structures, no ear pain NOSE: sinuses non tender to percussion, no rhinorrhea ORAL CAVITY: mucosa moist without lesions or exudate, partial dentition, missing teeth, palate normal, tongue in midline. THROAT: normal, no erythema, no exudate, pharynx normal, uvula midline. NECK/THYROID: neck supple, no JVD appreciated, no carotid bruit, no thyromegaly, trachea midline. LYMPH NODES: no cervical or supraclavicular lymphadenopathy. SKIN: warm and dry, no suspicious lesions, no rashes, good turgor. HEART: regular rate and rhythm, S1-S2 1/6 systolic murmur, no rubs or gallops, brisk capillary refill, no pedal edema LUNGS: Diminished breath sounds on auscultation bilaterally, no coarseness cr ackles or wheezing, no cough CHEST: Increased AP diameter, symmetrical movement, 4 word dyspnea, mild supraclavicular retractions, no pain to AP and lateral compression. ABDOMEN: Soft, round, no distention, no epigastric or abdominal tenderness on palpation, no guarding or peritoneal signs, no organomegaly, no flank or suprapubic tenderness, active bowel tones. BACK: Normal curvature, nontender to palpation, no CVA tenderness on percussion EXTREMITIES: moves all extremities, strength is 5/5 and symmetrical NEUROLOGIC: AAO x4, cranial nerves II-XII grossly intact , motor strength normal upper and lower extremities, sensory exam intact to light touch, mildly hard of hearing, hearing aids at bedside PSYCH: alert, cognitive function intact, good eye contact, stable mood with congruent affect Objective Labs Result Diagrams: 11/17/18 19:25 11/17/18 19:25 Labs: Laboratory Results - last 24 hr 11/17/18 11/17/18 11/17/18 19:25 19:25 19:25 WBC 22.2 H RBC 4.46 L Hgb 13.9 Hct 41.4 MCV 92.7 MCH 31.1 MCHC 33.5 RDW 14.5 Plt Count 377 Neut % (Auto) 72.5 Lymph % (Auto) 11.6 L [place] % (Auto) 13.3 Eos % (Auto) 1.9 L Baso % (Auto) 0.7 Neut # (Auto) 90441 H Lymph # (Auto) 2600 [place] # (Auto) 3000 H Eos # (Auto) 400 Baso # (Auto) 100 ABG pH ABG pCO2 ABG pO2 ABG HCO3 ABG Total CO2 ABG O2 Saturation ABG Base Excess FiO2 Sodium 134 L Potassium 4.8 Chloride 94 L Carbon Dioxide 28 BUN 32 H Creatinine 1.60 H Estimated GFR 41.6 L BUN/Creatinine Ratio 20.0 Glucose 130 H Lactate Uric Acid Calcium 10.5 H Total Bilirubin 0.7 AST 28 ALT 33 Alkaline Phosphatase 57 Troponin I 0.028 B-Natriuretic Peptide Total Protein 8.0 Albumin 4.3 Globulin 3.7 Albumin/Globulin Ratio 1.2 Procalcitonin 11/17/18 11/17/18 11/17/18 19:25 19:25 19:25 WBC RBC Hgb Hct MCV MCH MCHC RDW Plt Count Neut % (Auto) Lymph % (Auto) [place] % (Auto) Eos % (Auto) Baso % (Auto) Neut # (Auto) Lymph # (Auto) [place] # (Auto) Eos # (Auto) Baso # (Auto) ABG pH ABG pCO2 ABG pO2 ABG HCO3 ABG Total CO2 ABG O2 Saturation ABG Base Excess FiO2 Sodium Potassium Chloride Carbon Dioxide BUN Creatinine Estimated GFR BUN/Creatinine Ratio Glucose Lactate Uric Acid 9.1 H Calcium Total Bilirubin AST ALT Alkaline Phosphatase Troponin I B-Natriuretic Peptide 1430 H Total Protein Albumin Globulin Albumin/Globulin Ratio Procalcitonin 2.43 H 11/17/18 11/17/18 19:38 19:42 WBC RBC Hgb Hct MCV MCH MCHC RDW Plt Count Neut % (Auto) Lymph % (Auto) [place] % (Auto) Eos % (Auto) Baso % (Auto) Neut # (Auto) Lymph # (Auto) [place] # (Auto) Eos # (Auto) Baso # (Auto) ABG pH 7.38 ABG pCO2 40.9 ABG pO2 111 H ABG HCO3 24 ABG Total CO2 26 ABG O2 Saturation 98 ABG Base Excess -1.0 FiO2 45 Sodium Potassium Chloride Carbon Dioxide BUN Creatinine Estimated GFR BUN/Creatinine Ratio Glucose Lactate 2.0 Uric Acid Calcium Total Bilirubin AST ALT Alkaline Phosphatase Troponin I B-Natriuretic Peptide Total Protein Albumin Globulin Albumin/Globulin Ratio Procalcitonin Assessment & Plan Assessment & Plan narrative: The patient is admitted to the ICU related to ongoing dyspnea, work of breathing related to pneumonia and multiple comorbid conditions requiring close monitoring. 1. Acute on chronic hypoxic respiratory failure, improving -past smoker 2 packs per day for 30 years and history of COPD. At baseline the patient can walk a couple of blocks slowly. -patient has had 4 days of progressive dyspnea, increasing dyspnea on exertion, weakness and chills -in the field the patient had a pulse oximetry in the 80s per EMS and the patient was started on BiPAP prior to arrival the hospital. -patient remained tachypneic with an ABG revealing a pH of 7.38, pCO2 of 40.9, PO2 of 111, bicarb of 24 and base excess of -1 while on BiPAP at 45% FiO2. -patient received Solu-Medrol 125 mg in the emergency department. Will continue Solu-Medrol 60 mg every 8 hours. -DuoNeb treatments every 6 hours with albuterol nebulizer treatments every 2 hours as needed. -respiratory therapy consulting with heated high-flow oxygen to titrate to SpO2 88-92%. -will obtain sputum culture as well as respiratory PCR panel. 2. Acute Left lower lobe pneumonia, present on admission. -chest x-ray reveals left lower lobe pneumonia, WBCs are 22.2, lactic acid 2.0 and procalcitonin obtained at 2.43. -azithromycin 500 mg IV daily for 3 days. -ceftriaxone 1 g given in the emergency department, 2nd g administered on admission, will continue ceftriaxone 2 g IV daily. -respiratory supports as noted above. -guaifenesin 600 mg p.o. twice daily. -will follow CBC and procalcitonin. 3. Paroxysmal atrial fibrillation, stable -patient in sinus tachycardia with multifocal PVCs upon arrival without evidence of ischemia, no complaints of chest pain -history of GA with stents x2 with Q-waves inferior lateral on 12 lead EKG. Per family report most recent echo reveals a 30% EF. -BMP is 1430, chest x-ray does not reveal evidence of pulmonary edema or pulmonary vascular congestion. Patient appears euvolemic on exam. -continue patient's home sotalol at 120 mg twice daily and metoprolol succinate 25 mg daily. -continue patient's home medication of Xarelto 20 mg daily. 4. Chronic gout, not present on admission -patient with recent gouty flare in the left great toe with history of gout in the knees. -patient is on no uric acid lowering medication but has previously been prescri bed allopurinol. -will obtain a uric acid level as the patient may need diuresis which would exacerbate and possibly trigger a gouty flare. 5. Chronic kidney disease stage III, presumed stable. -BUN is 32 with creatinine of 1.6, EGFR 41.6, BUN creatinine ratio is 20. -patient's reports patient has 50% kidney function and has been under the care of Nephrology. -patient appears adequately hydrated and is not on diuretic therapy, will renal dose and minimize the use of nose for a toxic agents. 6. Chronic hypertension, stable -patient has remained hemodynamically stable, blood pressure time of exam is 103/72. -patient is taking metoprolol however per family is intended for rhythm manageme nt. 7. Hyperlipidemia, resume stable -continue home medication of rosuvastatin 20 mg daily. The patient is admitted to the hospital due to severity of symptoms, risk of complications and adverse events. The patient will be admitted inpatient with expected length of stay to be greater than 2 midnights. Scores GCS Kerkhoven coma scale eye opening: Spontaneous Theodora coma scale verbal response: Orientated Kerkhoven coma scale motor response: Obey commands Theodora coma scale total score: 15 SOFA PaO2/FIO2: < 300 mmHg Platelets: >= 150 Bilirubin: < 1.2 mg/dL Hypotension: MAP >= 70 mmHg Kerkhoven Coma Scale: 15 Renal: Creatinine 1.2-1.9 mg/dL SOFA Score: 3
--- NOTE | 2018-11-17 22:53 | PC.NURSE ---
2250- patient admitted to room 105. Patient is alert and oriented. Patient on heated high flow at 60% flow and 34.5% o2. Low grade temp. Patient advised to call for assist oriented to the room and belongings secured. No belongings to safe. Hearing aides in cup at bedside, glasses on bedside table. ICU status stable at this time. Patient has AICD/Pacer
[2018-11-18] VITALS (35 sets, daily range): BP systolic 59–144; BP diastolic 36–99; PULSE 65–101; RESP 14–39; TEMP 35.6–36.7; O2SAT 91–100
--- NOTE | 2018-11-18 | DI.CT.S_ITS ---
PROCEDURE: CT CHEST ABD PEL WO CON INDICATIONS: worsening tachypnea and work of breathing TECHNIQUE: After the administration of oral contrast, 5 mm thick sections acquired from the lung apices to the symphysis pubis. 5 mm thick coronal and sagittal reformats acquired, with additional 7 mm coronal MIP reformats through the lungs. For radiation dose reduction, the following was used: automated exposure control, adjustment of mA and/or kV according to patient size. COMPARISON: [facility], CR, XR CHEST 1V, 11/17/2018, 20:02. FINDINGS: Image quality: Excellent. CHEST: Lungs and pleura: There is a masslike opacity seen involving the lingula, adjacent to the heart border, which measures 3.6 x 3.9 x 3.7 cm. Patchy, mild infiltrates are seen throughout the lungs. No pleural effusions or pneumothorax. Central and peripheral airways are patent are normal in caliber. Mediastinum: Heart size is normal. Dense atherosclerotic calcification can be seen. No pericardial effusion. No mediastinal adenopathy by CT size criteria. Thoracic aorta and central pulmonary arteries are normal in size. Esophagus is normal in caliber. No hiatal hernia. Chest wall: No axillary or supraclavicular adenopathy by size criteria. Thyroid gland demonstrates no significant noncontrast abnormality. An AICD is seen. ABDOMEN: Solid organs: Liver is normal in size. Gallbladder demonstrates layering gallstones, as on series 2 image 64. Pancreas is normal in contours. Spleen is normal in size. No adrenal nodules. Both kidneys are normal in size, without hydronephrosis or nephrolithiasis. Peritoneum and bowel: Small and large bowel loops are normal in caliber and wall thickness. No free fluid or air. Nodes and vessels: No retroperitoneal or mesenteric adenopathy by size criteria. Aorta and inferior vena cava are normal in size. Dense atherosclerotic calcification is seen. Miscellaneous: No ventral hernias. PELVIS: Genitourinary: Bladder wall thickness is normal. Miscellaneous: No inguinal adenopathy. Bilateral inguinal hernias are seen. The hernia on the right contains a nondilated loop of tortuous distal colon. The hernia on the right contains only fat. Bones: No suspicious bony lesions. No vertebral body compression fractures. Mild levoconvex scoliotic curvature is noted. Prominent degenerative changes are seen, particularly involving the lower lumbar spine. IMPRESSION: There is a 3.9 cm masslike density involving the lingula, which is worrisome for neoplasm. Please consider a PET/CT for further evaluation. Mild patchy infiltrates are seen elsewhere within the lungs. Bilateral inguinal hernias are seen. The left inguinal hernia contains nondilated distal colon. Incidental note is made of: Dense atherosclerotic calcifications are seen, including coronary artery calcification AICD Gallstones Levoconvex curvature Lower lumbar spine degenerative change Note: Findings and recommendations relayed to Dr. Villatoro via nurse Hairston at 10:35 AM [place] time on November 18, 2018. Dr. Villatoro will call back if there are any questions. Dictated by: Epifanio Díaz M.D. on 11/18/2018 at 9:26 Approved by: Epifanio Díaz M.D. on 11/18/2018 at 9:38
--- NOTE | 2018-11-18 | DI.ECHO.S_ITS ---
[facility] +---------+ Hospital +---------+ : : 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 There is no thrombus. The LV ejection fraction is difficult to measure accurately due to presence of the moderate-size apical aneurysm and the wall motion abnormalities but appears to be moderately reduced, about 40%. There is a pacemaker lead in the right ventricle. The right ventricle is normal in size and function. Right ventricular systolic pressure is estimated to be 25 mmHg plus the clinically estimated CVP which cannot be estimated on this exam. -Overall this echo shows evidence of prior infarct in LAD territory with an apical aneurysm without thrombus. -There is no prior echocardiogram noted for this patient. Procedure: A two-dimensional transthoracic echocardiogram with color flow and Doppler was performed. The study quality was technically difficult. There is no prior echocardiogram noted for this patient. A contrast injection of Definity was performed to improve assessment of LV function. The patient was in normal sinus rhythm during the exam. Left Ventricle: The left ventricle is normal in size. Left ventricular wall thickness is mildly increased. 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 There is no thrombus. The LV ejection fraction is difficult to determine accurately due to presence of the moderate-size apical aneurysm and the wall motion abnormalities but appears to be moderately reduced. There is a moderate dyssynchronous contraction pattern due to the paced rhythm. There is anterior wall severe hypokinesis. There is apical dyskinesis. Diastolic function could not be accurately assessed due to unobtainable data. Right Ventricle: There is a pacemaker lead in the right ventricle. The right ventricle is normal in size and function. Atria: Both atria are normal in size. There is no Doppler evidence for an interatrial shunt. Mitral Valve: The mitral valve leaflets are mildly calcified. There is trace mitral regurgitation. Aortic Valve: The aortic valve is trileaflet. The aortic valve opens well. The aortic valve is slightly calcified. There is no aortic valve stenosis. There is mild aortic regurgitation. There is an eccentric jet of aortic insufficiency directed against the anterior mitral leaflet. Tricuspid Valve: The tricuspid valve is not well visualized, but is grossly normal. There is trace tricuspid regurgitation. Right ventricular systolic pressure is estimated to be 25 mmHg plus the clinically estimated CVP which cannot be estimated on this exam. Pulmonic Valve: The pulmonic valve is not well seen, but is grossly normal. There is trace pulmonic regurgitation. Great Vessels: The aortic root is mildly dilated. The ascending aorta could not be visualized. The IVC has a measurement of 20 mm. Inspiratory collapse cannot be assessed because of mechanical ventilation, thus CVP cannot be estimated.. Pericardium/ Pleura There is no pericardial effusion. MMode/2D Measurements & Calculations LVIDd: 4.4 cm LVOT diam: 2.4 cm LVIDs: 3.7 cm Ao root diam: 4.4 cm FS: 16.5 % EPSS: 0.94 cm IVSd: 1.2 cm LVPWd: 0.98 cm LV malik. diameter/BSA (cm/m^2): 2.2 LV sys. diameter/BSA (cm/m^2): 1.9 LA A2 area: 16.9 cm2 RA long axis: 4.4 cm LA A4 area: 20.7 cm2 RA area: 15.4 cm2 LA length (vol): 5.0 cm RA vol: 45.9 ml LA vol: 60.0 ml RA : 23.3 ml/m2 LA vol index: 30.4 ml/m2 IVC diam: 2.0 cm RVD1 (basal): 3.5 cm RVD2 (mid): 3.4 cm TAPSE: 2.0 cm Doppler Measurements & Calculations Ao V2 max: 76.8 cm/sec LVOT Max Viktor: 69.7 cm/sec Ao V2 mean: 53.4 cm/sec LV V1 max P.9 mmHg Ao max P.4 mmHg LV V1 VTI: 14.7 cm Ao mean P.3 mmHg MIHIR(I,D): 4.8 cm2 Ao V2 VTI: 13.6 cm MIHIR(V,D): 4.0 cm2 sev ratio: 1.1 MIHIR indexed to BSA (cm^2/m^2): 2.4 MV E max viktor: 30.7 cm/sec TR max viktor: 248.9 cm/sec MV A max viktor: 44.1 cm/sec TR max P.8 mmHg MV E/A: 0.70 PA V2 max: 92.1 cm/sec Med Peak E' Viktor: 2.9 cm/sec PA V2 mean: 60.1 cm/sec E/E' med: 10.4 PA mean P.7 mmHg Lat Peak E' Viktor: 3.9 cm/sec PA Accel Time: 0.07 sec E/E' lat: 7.9 E/e' average: 9.2 MV dec time: 0.12 sec MV P1/2t: 37.2 msec MV P1/2t max viktor: 30.9 cm/sec SV(LVOT): 65.3 ml MVA(P1/2t): 5.9 cm2 Electronically signed by: Karl Dunn M.D. on Reading Physician:11/18/2018 04:00 PM
[2018-11-18] MEDS: ALBUTEROL 2.5 MG/3 ML NEB (ADULT) INH ×5 (00:19→11:50)
[2018-11-18] MEDS: guaiFENesin ER 600 MG TAB PO (00:28)
[2018-11-18] MEDS: FAMOTIDINE 20 MG/50 ML PIGGYBACK 200 MG IV ×3 (00:30→23:52)
[2018-11-18] MEDS: ACETAMINOPHEN 325 MG TABLET 650 MG PO (00:31)
[2018-11-18] MEDS: SODIUM CHLORIDE 0.9% 250 ML 21 ML IV (00:31)
[2018-11-18] MEDS: SODIUM CHLORIDE 0.9% FLUSH 10 ML IV ×3 (00:31→21:12)
[2018-11-18] MEDS: AZITHROMYCIN 500 MG in DEXTROSE 5% IN WATER 250 ML IV (01:01)
[2018-11-18 01:53] LABS: Adenovirus Not Detected (Not Detect); Bordetella pertussis Not Detected (Not Detect); Chlamydophila pneumoniae Not Detected (Not Detect); Coronavirus 229E Not Detected (Not Detect); Coronavirus HKU1 Not Detected (Not Detect); Coronavirus NL 63 Not Detected (Not Detect); Coronavirus OC43 Not Detected (Not Detect); Human Metapneumovirus Not Detected (Not Detect); Human Rhinovirus/Enterovirus Not Detected (Not Detect); Influenza A Not Detected (Not Detect); Influenza B Not Detected (Not Detect); Mycoplasma pneumoniae Not Detected (Not Detect); Parainfluenza Virus 1 Not Detected (Not Detect); Parainfluenza Virus 2 Not Detected (Not Detect); Parainfluenza Virus 3 Detected (Not Detect); Parainfluenza Virus 4 Not Detected (Not Detect); Respiratory Syncytial Virus Not Detected (Not Detect)
[2018-11-18] MEDS: CEFTRIAXONE 1 GM/50 ML FROZ.PIGGY IV (02:25)
[2018-11-18] MEDS: MORPHINE 2 MG/ML INJ IV ×2 (02:35→12:00)
[2018-11-18] MEDS: methylPREDNISolone 125 MG/2 ML VIAL 60 MG IV ×3 (03:28→20:51)
[2018-11-18] MEDS: FUROSEMIDE 20 MG/2 ML VIAL IV (03:29)
--- NOTE | 2018-11-18 03:46 | PC.NURSE ---
Addendum entered by Dominga Camacho R.N. 11/18/18 06:18: Patient is able to rest better, flow rate decreased to 40L on HHFNC, SpO2 90-95%, RR 20s, no UOP yet, he denies urge to void. 2gm Mg+ sulfate infusing as ordered. Patient is also placed in Droplet Precautions for parainfluenza 3. Original Note: Patient has been restless with shortness of breath despite neb tx approximately Q1h. SpO2 >92% on HHFNC 60L flow .35% FIO2, RR 20-30s, coarse crackles Lt upper lobe. Musinex given for cough, scheduled IV abx given. Tito GUZMÁN notified , assessed patient, IV morphine and IV Lasix ordered and given, also on 1hr continuous neb.
[2018-11-18 05:03] LABS: Fractionated Inspired Oxygen 40; HCO3 ABG 22 mmol/L (22-26); Oxygen Saturation ABG 94 % (95-100); PCO2 ABG 41.6 mmHg (35-45); PO2 ABG 75 mmHg (80-100); TCO2 ABG 23 mmol/L (21-31); pH ABG 7.33 (7.35-7.45)
[2018-11-18 05:11] LABS: Add Manual Diff / Slide Review NO; Basophils Absolute Auto 0 /uL (0-100); Basophils Percent Auto 0.3 % (0-2); Eosinophils Absolute Auto 0 /uL (0-450); Eosinophils Percent Auto 0.1 % (2-4); Hemoglobin 12.7 g/dL (13.5-17.5); Lymphocytes Absolute Auto 1200 /uL (1100-4500); Lymphocytes Percent Auto 7.6 % (25-40); Mean Corpuscular HGB Conc 32.7 % (30-36); Mean Corpuscular Hemoglobin 30.7 PG (26-34); Monocytes Absolute Auto 200 /uL (0-900); Monocytes Percent Auto 1.3 % (3-14); Neutrophils Absolute Auto 13800 /uL (1500-7000); Neutrophils Percent Auto 90.7 % (50-75); Platelet Count 280 X10^3/uL (150-400); Red Blood Cell Count 4.15 X10^6/uL (4.5-5.9); White Blood Cell Count 15.2 X10^3/uL (4.5-11.0)
[2018-11-18 05:16] LABS: BUN Creatinine Ratio 22.9 (6-22); Blood Urea Nitrogen 39 mg/dL (9-20); Calcium 10.1 mg/dL (8.4-10.2); Carbon Dioxide 26 mmol/L (22-32); Chloride 94 mmol/L (98-107); Estimated Glomerular Filt Rate 39.8 mL/min (>60); Glucose 181 mg/dL (80-110); HEMOLYSIS < 15 (0-50); Potassium 5.3 mmol/L (3.4-5.1); Sodium 132 mmol/L (137-145)
[2018-11-18 05:40] LABS: Magnesium 1.1 mg/dL (1.6-2.3)
[2018-11-18 05:56] LABS: Procalcitonin 3.04 ng/mL (<0.5)
[2018-11-18] MEDS: MAGNESIUM SULFATE 2 GM/50 ML PIGGYBACK IV (06:07)
[2018-11-18 06:18] LABS: Phosphorous 5.7 mg/dL (2.3-3.7)
[2018-11-18] MEDS: ALBUTEROL/IPRATROPIUM 3 ML AMPUL INH ×5 (07:14→23:02)
[2018-11-18 07:26] LABS: B Type Natriuretic Peptide 1990 (<100)
[2018-11-18] MEDS: METOPROLOL ER 25 MG TABLET PO (08:09)
[2018-11-18] MEDS: SOTALOL 80 MG TABLET 120 MG PO (08:10)
[2018-11-18] MEDS: RIVAROXABAN 10 MG TABLET 20 MG PO (08:11)
--- NOTE | 2018-11-18 08:19 | P.PN_ITS ---
Subjective Date Patient Seen: 11/18/18 Time Patient Seen: 08:14 Interval history: Follow-up on acute hypoxic respiratory failure secondary to parainfluenza virus 3 and left lower lobe pneumonia. Patient seen at bedside. Patient received BiPAP in the evening however was transition to high-flow nasal cannula during the night. This morning he is a lot more dyspneic. He is having hard time breathing. He states that his chest is very tight, although he is not experiencing any wheezing. His work of breathing is increased. He is saturating 100% on high-flow nasal cannula 60%. Patient currently AAO x3, and denies any blurry vision, dizziness, lightheadedness. Patient denies any chest pain or cough. Currently denies any nausea or vomiting. Exam Vital Signs (past 8 hours): - 11/18/18 00:20 11/18/18 00:25 11/18/18 02:25 Temperature 98.0 F Pulse Rate 94 H 92 H 93 H Respiratory Rate 30 H 33 H 26 H Blood Pressure 118/61 127/49 L Pulse Oximetry 91 94 93 11/18/18 04:00 11/18/18 06:16 11/18/18 07:15 Temperature Pulse Rate 82 74 87 Respiratory Rate 22 25 H 30 H Blood Pressure 83/47 L 86/52 L Pulse Oximetry 95 93 96 Fraction of Inspired Oxygen 0.35 Oxygen Delivery Method High Flow Nasal Cannula Oxygen Flow Rate 55 Narrative Exam Narrative: General: Mild respiratory distress, AAO x3 HEENT: Normocephalic, atraumatic. PERRLA and EOMI bilaterally. High-flow nasal cannula is in place. Moist mucous membranes. Neck: Supple, no LAD or JVD CV: Regular rate rhythm, systolic murmur present. Respiratory: Severely Diminished breath sounds in all lung barraza. No crackles or wheezing appreciated. GI: Positive bowel sounds in all quadrants, nondistended, nontender, no organomegaly Extremities: No edema appreciated Musculoskeletal: Normal range of motion Neuro: No focal deficits, AO x3 Psych: Mood is appropriate, patient is able to make his own decisions Objective Labs Result Diagrams: 11/18/18 04:48 11/18/18 04:48 Labs: Laboratory Results - last 24 hr 11/17/18 11/17/18 11/17/18 04:48 19:25 19:25 WBC 22.2 H RBC 4.46 L Hgb 13.9 Hct 41.4 MCV 92.7 MCH 31.1 MCHC 33.5 RDW 14.5 Plt Count 377 Neut % (Auto) 72.5 Lymph % (Auto) 11.6 L [place] % (Auto) 13.3 Eos % (Auto) 1.9 L Baso % (Auto) 0.7 Neut # (Auto) 17755 H Lymph # (Auto) 2600 [place] # (Auto) 3000 H Eos # (Auto) 400 Baso # (Auto) 100 ABG pH ABG pCO2 ABG pO2 ABG HCO3 ABG Total CO2 ABG O2 Saturation ABG Base Excess FiO2 Sodium 134 L Potassium 4.8 Chloride 94 L Carbon Dioxide 28 BUN 32 H Creatinine 1.60 H Estimated GFR 41.6 L BUN/Creatinine Ratio 20.0 Glucose 130 H Lactate Uric Acid Calcium 10.5 H Phosphorus Magnesium 1.1 L Total Bilirubin 0.7 AST 28 ALT 33 Alkaline Phosphatase 57 Troponin I B-Natriuretic Peptide Total Protein 8.0 Albumin 4.3 Globulin 3.7 Albumin/Globulin Ratio 1.2 Procalcitonin Nasal Screen MRSA (PCR) Chlamy pneumoniae PCR Adenovirus (PCR) B.parapertussis DNA PCR Coronavirus OC43 (PCR) Coronavirus HKU1 (PCR) Coronavirus 229E (PCR) Coronavirus NL63 (PCR) Human Metapneumovir PCR Influenza Type A (PCR) Influenza Type B (PCR) M. pneumoniae (PCR) Parainfluenza 1 (PCR) Parainfluenza 2 (PCR) Parainfluenza 3 (PCR) Parainfluenza 4 (PCR) RSV (PCR) Entero/Rhino (PCR) 11/17/18 11/17/18 11/17/18 19:25 19:25 19:25 WBC RBC Hgb Hct MCV MCH MCHC RDW Plt Count Neut % (Auto) Lymph % (Auto) [place] % (Auto) Eos % (Auto) Baso % (Auto) Neut # (Auto) Lymph # (Auto) [place] # (Auto) Eos # (Auto) Baso # (Auto) ABG pH ABG pCO2 ABG pO2 ABG HCO3 ABG Total CO2 ABG O2 Saturation ABG Base Excess FiO2 Sodium Potassium Chloride Carbon Dioxide BUN Creatinine Estimated GFR BUN/Creatinine Ratio Glucose Lactate Uric Acid Calcium Phosphorus Magnesium Total Bilirubin AST ALT Alkaline Phosphatase Troponin I 0.028 B-Natriuretic Peptide 1430 H Total Protein Albumin Globulin Albumin/Globulin Ratio Procalcitonin 2.43 H Nasal Screen MRSA (PCR) Chlamy pneumoniae PCR Adenovirus (PCR) B.parapertussis DNA PCR Coronavirus OC43 (PCR) Coronavirus HKU1 (PCR) Coronavirus 229E (PCR) Coronavirus NL63 (PCR) Human Metapneumovir PCR Influenza Type A (PCR) Influenza Type B (PCR) M. pneumoniae (PCR) Parainfluenza 1 (PCR) Parainfluenza 2 (PCR) Parainfluenza 3 (PCR) Parainfluenza 4 (PCR) RSV (PCR) Entero/Rhino (PCR) 11/17/18 11/17/18 11/17/18 19:25 19:38 19:42 WBC RBC Hgb Hct MCV MCH MCHC RDW Plt Count Neut % (Auto) Lymph % (Auto) [place] % (Auto) Eos % (Auto) Baso % (Auto) Neut # (Auto) Lymph # (Auto) [place] # (Auto) Eos # (Auto) Baso # (Auto) ABG pH 7.38 ABG pCO2 40.9 ABG pO2 111 H ABG HCO3 24 ABG Total CO2 26 ABG O2 Saturation 98 ABG Base Excess -1.0 FiO2 45 Sodium Potassium Chloride Carbon Dioxide BUN Creatinine Estimated GFR BUN/Creatinine Ratio Glucose Lactate 2.0 Uric Acid 9.1 H Calcium Phosphorus Magnesium Total Bilirubin AST ALT Alkaline Phosphatase Troponin I B-Natriuretic Peptide Total Protein Albumin Globulin Albumin/Globulin Ratio Procalcitonin Nasal Screen MRSA (PCR) Chlamy pneumoniae PCR Adenovirus (PCR) B.parapertussis DNA PCR Coronavirus OC43 (PCR) Coronavirus HKU1 (PCR) Coronavirus 229E (PCR) Coronavirus NL63 (PCR) Human Metapneumovir PCR Influenza Type A (PCR) Influenza Type B (PCR) M. pneumoniae (PCR) Parainfluenza 1 (PCR) Parainfluenza 2 (PCR) Parainfluenza 3 (PCR) Parainfluenza 4 (PCR) RSV (PCR) Entero/Rhino (PCR) 11/18/18 11/18/18 11/18/18 00:10 00:10 04:48 WBC 15.2 H RBC 4.15 L Hgb 12.7 L Hct 39.0 L MCV 94.0 MCH 30.7 MCHC 32.7 RDW 15.0 H Plt Count 280 Neut % (Auto) 90.7 H Lymph % (Auto) 7.6 L [place] % (Auto) 1.3 L Eos % (Auto) 0.1 L Baso % (Auto) 0.3 Neut # (Auto) 27751 H Lymph # (Auto) 1200 [place] # (Auto) 200 Eos # (Auto) 0 Baso # (Auto) 0 ABG pH ABG pCO2 ABG pO2 ABG HCO3 ABG Total CO2 ABG O2 Saturation ABG Base Excess FiO2 Sodium Potassium Chloride Carbon Dioxide BUN Creatinine Estimated GFR BUN/Creatinine Ratio Glucose Lactate Uric Acid Calcium Phosphorus Magnesium Total Bilirubin AST ALT Alkaline Phosphatase Troponin I B-Natriuretic Peptide Total Protein Albumin Globulin Albumin/Globulin Ratio Procalcitonin Nasal Screen MRSA (PCR) Negative for mrsa Chlamy pneumoniae PCR Not detected Adenovirus (PCR) Not detected B.parapertussis DNA PCR Not detected Coronavirus OC43 (PCR) Not detected Coronavirus HKU1 (PCR) Not detected Coronavirus 229E (PCR) Not detected Coronavirus NL63 (PCR) Not detected Human Metapneumovir PCR Not detected Influenza Type A (PCR) Not detected Influenza Type B (PCR) Not detected M. pneumoniae (PCR) Not detected Parainfluenza 1 (PCR) Not detected Parainfluenza 2 (PCR) Not detected Parainfluenza 3 (PCR) Detected H Parainfluenza 4 (PCR) Not detected RSV (PCR) Not detected Entero/Rhino (PCR) Not detected 11/18/18 11/18/18 11/18/18 04:48 04:48 04:48 WBC RBC Hgb Hct MCV MCH MCHC RDW Plt Count Neut % (Auto) Lymph % (Auto) [place] % (Auto) Eos % (Auto) Baso % (Auto) Neut # (Auto) Lymph # (Auto) [place] # (Auto) Eos # (Auto) Baso # (Auto) ABG pH ABG pCO2 ABG pO2 ABG HCO3 ABG Total CO2 ABG O2 Saturation ABG Base Excess FiO2 Sodium 132 L Potassium 5.3 H Chloride 94 L Carbon Dioxide 26 BUN 39 H Creatinine 1.70 H Estimated GFR 39.8 L BUN/Creatinine Ratio 22.9 H Glucose 181 H Lactate Uric Acid Calcium 10.1 Phosphorus Magnesium Total Bilirubin AST ALT Alkaline Phosphatase Troponin I B-Natriuretic Peptide 1990 H Total Protein Albumin Globulin Albumin/Globulin Ratio Procalcitonin 3.04 H Nasal Screen MRSA (PCR) Chlamy pneumoniae PCR Adenovirus (PCR) B.parapertussis DNA PCR Coronavirus OC43 (PCR) Coronavirus HKU1 (PCR) Coronavirus 229E (PCR) Coronavirus NL63 (PCR) Human Metapneumovir PCR Influenza Type A (PCR) Influenza Type B (PCR) M. pneumoniae (PCR) Parainfluenza 1 (PCR) Parainfluenza 2 (PCR) Parainfluenza 3 (PCR) Parainfluenza 4 (PCR) RSV (PCR) Entero/Rhino (PCR) 11/18/18 11/18/18 04:48 04:50 WBC RBC Hgb Hct MCV MCH MCHC RDW Plt Count Neut % (Auto) Lymph % (Auto) [place] % (Auto) Eos % (Auto) Baso % (Auto) Neut # (Auto) Lymph # (Auto) [place] # (Auto) Eos # (Auto) Baso # (Auto) ABG pH 7.33 L ABG pCO2 41.6 ABG pO2 75 L ABG HCO3 22 ABG Total CO2 23 ABG O2 Saturation 94 L ABG Base Excess -4.0 L FiO2 40 Sodium Potassium Chloride Carbon Dioxide BUN Creatinine Estimated GFR BUN/Creatinine Ratio Glucose Lactate Uric Acid Calcium Phosphorus 5.7 H Magnesium Total Bilirubin AST ALT Alkaline Phosphatase Troponin I B-Natriuretic Peptide Total Protein Albumin Globulin Albumin/Globulin Ratio Procalcitonin Nasal Screen MRSA (PCR) Chlamy pneumoniae PCR Adenovirus (PCR) B.parapertussis DNA PCR Coronavirus OC43 (PCR) Coronavirus HKU1 (PCR) Coronavirus 229E (PCR) Coronavirus NL63 (PCR) Human Metapneumovir PCR Influenza Type A (PCR) Influenza Type B (PCR) M. pneumoniae (PCR) Parainfluenza 1 (PCR) Parainfluenza 2 (PCR) Parainfluenza 3 (PCR) Parainfluenza 4 (PCR) RSV (PCR) Entero/Rhino (PCR) Assessment & Plan Assessment & Plan narrative: 73yo M with PMH of COPD, CHF, paroxysmal AFib on Xarelto, hypertension, CKD stage 3, hyperlipidemia, gout presented to ED with dyspnea and increased work of breathing. He was admitted with acute hypoxic respiratory failure secondary to COPD exacerbation as well as left lower lobe pneumonia and parainfluenza virus. 1. Acute on chronic hypoxic respiratory failure, worsening -likely due to COPD exacerbation, left lower lobe pneumonia, and parainfluenza virus -on admission, ABG revealed pH of 7.38, pCO2 of 40.9, PO2 of 111, bicarb of 24 and base excess of -1 while on BiPAP at 45% FiO2. Subsequent ABG showed pH of 7.33, pCO2 41.6, PO2 of 75, bicarb of 22. -patient was initially on BiPAP therapy, however was switched to high-flow nasal cannula overnight. Nevertheless, patient's condition is currently worsening, with increased tachypnea and work of breathing. I am afraid patient's hypoxic drive has been decreased due to high flow oxygen and patient may be going into O2 induced hypercapnia. Currently unable to successfully obtain ABG. -given patient's medical history of COPD and other comorbidities, he is at risk for Pseudomonas and or MRSA. Will therefore broaden the patient's antibiotic therapy to vancomycin, cefepime, and Levaquin. -Will continue Solu-Medrol 60 mg every 8 hours and frequent nebulizer therapy -will attempt another ABG in 1 hour on BiPAP therapy. Patient is high risk intubation at this point 2. Acute Left lower lobe pneumonia, present on admission. -respiratory status currently worsening -leukocytosis improving, with WBCs are down to 15 now. However, procalcitonin is increasing to 3.04 -chest x-ray revealed left lower lobe pneumonia -given patient's increased risk for Pseudomonas and MRSA, brought in patient's antibiotic therapy to vancomycin, cefepime, and Levaquin -blood cultures, sputum cultures, MRSA screen, and urine Legionella are all pending -will get CT chest without contrast (due to patient's poor renal function) to further evaluate worsening of respiratory status 3. Acute COPD exacerbation, present on admisson -likely exacerbated by left lower lobe pneumonia and parainfluenza virus -patient continues to have minimal airway exchange with severely diminished breath sounds and tachypnea, that is worsening -place patient back on BiPAP therapy, as there is concern for O2 induced hypercapnia -ABG 1 hour post BiPAP therapy -continue Solu-Medrol IV q.8 hours as well as frequent DuoNeb therapy -antibiotics as above 4. Paroxysmal atrial fibrillation, stable -not in RVR at this time -EKG showed Q-waves in inferolateral leads, corresponding with old NM. -continue patient's home sotalol at 120 mg twice daily and metoprolol succinate 25 mg daily. -continue patient's home medication of Xarelto 20 mg daily. 5. Chronic gout, not present on admission -patient with recent gouty flare in the left great toe with history of gout in the knees. -patient is on no uric acid lowering medication. 6. Chronic kidney disease stage III -Slightly worsened with diuresis -BUN is 39 with creatinine of 1.7 EGFR 36 -Monitor renal function 7. Chronic hypertension, stable -BP initially dropped with diuresis, but now normalized -Continue sotalol and metoprolol 8. Hyperlipidemia, resume stable -continue home medication of rosuvastatin 20 mg daily. 9. CAD -S/P NM with stent placement x2 -EKG showed Qwaves in inferolateral leads but no acute ST changes -Resume Sotalol, Metoprolol, Rosuvastatin -Pacemaker is in place 10. Systolic CHF, Chronic, present on admission -With possible fluid overload -BNP is on the rise: 1400->1989 -Per family, outside echo revealed EF 30% -Patient received one time diuresis on admission -Will repeat ECHO and get CT chest to evaluate for possible fluid overload before giving more Lasix therapy -AICD is in place Dispo: Patient is here with acute hypoxic respiratory failure. High risk for intubation.
[2018-11-18] MEDS: CEFEPIME 2 GM in SODIUM CHLORIDE 0.9% 100 ML 200 ML IV ×3 (10:21→21:45)
[2018-11-18 10:34] LABS: BUN Creatinine Ratio 24.1 (6-22); Blood Urea Nitrogen 41 mg/dL (9-20); Calcium 9.9 mg/dL (8.4-10.2); Carbon Dioxide 26 mmol/L (22-32); Chloride 94 mmol/L (98-107); Estimated Glomerular Filt Rate 39.8 mL/min (>60); Glucose 162 mg/dL (80-110); HEMOLYSIS < 15 (0-50); Potassium 5.3 mmol/L (3.4-5.1); Sodium 133 mmol/L (137-145)
[2018-11-18] MEDS: levoFLOXacin 750 MG/150 ML PIGGYBACK 100 MG IV (11:11)
--- NOTE | 2018-11-18 12:04 | CM.DANOTE ---
DCP: Case received, EMR reviewed. DCP assessment template completed with information currently available. Patient is a 73 year old male who admitted yesterday evening to the care of the hospitalist team. PCP: Unknown at this time. Payer: confirmed: Medicare/[facility]. Patient came to hospital via ambulance secondary to increased shortness of breath. According to notes, patient had been having this for approximately 4 days, and was increasing use of his neb treatments. His and him reside in [place], but were on a boat in this area for -. He is in the ICU at this time. Due to severity of illness, and at bedside, have not yet been able to meet with her. Patient holds diagnosis of acute hypoxic respiratory failure. He has acute left lobe pneumonia, as well as parainfluenza virus. He has history of COPD,CHF, as well as a-fib. He is on BIPAP at this time, and could potentially be intubated if ABGs do not improve. He is also a current smoker. P: DCP will continue to follow closely. Anticipate that patient will be here for several days. Will reach out to spouse when patient is more stable. Monse Powell RN/[employer]
[2018-11-18 12:09] LABS: HCO3 ABG 22 mmol/L (22-26); PCO2 ABG 42.9 mmHg (35-45); PO2 ABG 111 mmHg (80-100); TCO2 ABG 23 mmol/L (21-31); pH ABG 7.31 (7.35-7.45)
[2018-11-18 12:10] LABS: Fractionated Inspired Oxygen 0.35; Oxygen Saturation ABG 98 % (95-100)
[2018-11-18] MEDS: LORazepam 2 MG/ML INJ 1 MG IV (13:10)
[2018-11-18] MEDS: SODIUM CHLORIDE 0.9% 1,000 ML 1000 ML IV (13:25)
--- NOTE | 2018-11-18 13:33 | DI.RAD.S_ITS ---
PROCEDURE: XR CHEST 1V INDICATIONS: ett placement TECHNIQUE: One view of the chest was acquired. COMPARISON: [facility], CR, XR CHEST 1V, 11/17/2018, 20:02. FINDINGS: Surgical changes and devices: ET tube tip is approximately 2 cm above the zach. Enteric tube tip is in the region of proximal stomach/GE junction. Left chest wall cardiac device leads are seen in the region of right atrium and right ventricle. Lungs and pleura: Mild pulmonary vascular congestion is seen. Ill-defined opacity in left infrahilar region is seen suspicious for left infrahilar infiltrate/mass better seen on CT study. No pleural effusions or pneumothorax. Mediastinum: Mediastinal contours appear normal. Heart size is normal. Bones and chest wall: No suspicious bony lesions. Overlying soft tissues appear unremarkable. IMPRESSION: ET tube is in satisfactory position. Enteric tube tip is projected in the region of proximal stomach/GE junction, can be advanced by 6-7 cm. Left infrahilar mass. No pleural effusion or pneumothorax. Dictated by: Shun Flores M.D. on 11/18/2018 at 14:04 Approved by: Shun Flores M.D. on 11/18/2018 at 14:08
[2018-11-18] MEDS: VANCOMYCIN 1,250 MG in SODIUM CHLORIDE 0.9% 250 ML IV (13:35)
[2018-11-18] MEDS: MIDAZOLAM 50 MG in DEXTROSE 5% IN WATER 250 ML 25 ML IV (14:20)
[2018-11-18] MEDS: fentaNYL 1,000 MCG in DEXTROSE 5% IN WATER 250 ML 21.98 ML IV (14:20)
[2018-11-18] MEDS: SODIUM CHLORIDE 0.9% 500 ML 1000 ML IV (15:10)
--- NOTE | 2018-11-18 15:30 | PC.NURSE ---
Day Shift Note Pt on biPAP majority of AM, RR in the upper 20s to low 30s, reported feeling better and less short of breath. Tolerated CT scan. At about 1300 during echo, become panicked and started pulling off biPAP mask saying he couldn't wear this anymore. Pursed lip breathing with accessory muscle use, lung sounds very tight and decreased bilaterally. Attempted to replace biPAP but WOB continued to increase. Dr. Villatoro notified and down to see pt at bedside. Verbal order from Dr. Villatoro to intubate pt - Dr. Simmons at bedside to intubate with Khadijah RT and Chavez RT present. Pt received 15 mg etomidate and [address] Simmons, 1L NC bolus infusing per Dr. Villatoro. BP stable throughout intubation, oxygen sats 99%. Intubated with 7.5 ET tube, 24 cm at the teeth. Positive color change noted and positive breath sounds to all barraza. OG tube placed and CXR obtained. OG tube advanced about 6 cm per CXR report, placed to LIS. Restraints placed to bilateral wrists. Armendariz placed without issue. Started on fentanyl 1 mcg/kg/hr and Versed at 5 mg/hr. BP decreased to 50s/30s at 1445 - MD notified and sedation meds stopped at this time. NS 500 ml bolus initiated and infusing. Bed alarm on. , Sissy, updated by Dr. Villatoro.
--- NOTE | 2018-11-18 16:55 | PC.NURSE ---
Addendum entered by Norma Tellez R.N. 11/18/18 21:23: PICC placed by precision to left upper extremity. In the process patient lost both peripheral IV's. New peripheral started in right hand for sedation. While off of sedation patient becomes alert and attempts to pull at tube. Hypotension goes away while awake. Has not been started on levophed yet because of this, physician aware. Uriel GUZMÁN in to see patient. Updated on patient's status and blood pressures. Order received to keep MAP >60. Patient currently resting peacefully in bed. Addendum entered by Norma Tellez R.N. 11/18/18 18:15: 1815 - Dr. Villatoro updated on patient's status. Addendum entered by Norma Tellez R.N. 11/18/18 17:51: 1730 - Patient awake and coughing against ventilator and attempting to reach tubing. Slowly increased Versed to 4mg/hr and fentanyl to 1mcg/kg/hr per protocol. RT at bedside. Reassured patient. Blood pressure noted to be 117/65. Original Note: 1600 - BP up to 95/59. Attempted to start versed at 2mg/hr as patient was waking up. 1621 - Next blood pressure noted to be 64/35. Versed turned off and Dr. Villatoro notified. Also notified that patient noted to have a prolonged QT. See new orders for D/C'd levaquin and new orders for levophed to keep MAP >63. 1630 - RT at bedside suctioning patient. Patient woke up and blood pressure went up to 117/64. Levophed not initiated yet. Versed restarted at 2mg/hr.
[2018-11-18] MEDS: DOXYCYCLINE 100 MG in SODIUM CHLORIDE 0.9% 100 ML IV (17:21)
--- NOTE | 2018-11-18 17:41 | ER_ITS ---
ED Provider Consult/Code Note General Date Patient Seen: 11/18/18 Time Patient Seen: 13:02 Reason for Admission: Short of breath Events leading to Consult/Code: The called by admitting physician for respiratory distress and need for intubation. Patient on BiPAP and continues to have respiratory distress. Able to follow some commands. Cardiac Rhythm: Sinus rhythm Respiratory Auscultation: diminished lung sounds ET Tube Size: 7.5 Tube Secured Depth (cm): 24 Tube Secured Location: lips Tube Placement Confirmation: Visualized tube passing through cords, Equal breath sounds bilaterally, No breath sounds over epigastrium, Confirmation by capnometry and Chest Xray Care Provided Description of care provided: Patient given 15 mg of etomidate and 100 mg of rocuronium Chest x-ray confirmed intubation PROCEDURE: XR CHEST 1V INDICATIONS: ett placement TECHNIQUE: One view of the chest was acquired. COMPARISON: [facility], XR CHEST 1V, 11/17/2018, 20:02. FINDINGS: Surgical changes and devices: ET tube tip is approximately 2 cm above the zach. Enteric tube tip is in the region of proximal stomach/GE junction. Left chest wall cardiac device leads are seen in the region of right atrium and right ventricle. Lungs and pleura: Mild pulmonary vascular congestion is seen. Ill-defined opacity in left infrahilar region is seen suspicious for left infrahilar infiltrate/mass better seen on CT study. No pleural effusions or pneumothorax. Mediastinum: Mediastinal contours appear normal. Heart size is normal. Bones and chest wall: No suspicious bony lesions. Overlying soft tissues appear unremarkable. IMPRESSION: ET tube is in satisfactory position. Enteric tube tip is projected in the region of proximal stomach/GE junction, can be advanced by 6-7 cm. Left infrahilar mass. No pleural effusion or pneumothorax. Dictated by: Shun Flores M.D. on 11/18/2018 at 14:04
--- NOTE | 2018-11-18 18:59 | DI.RAD.S_ITS ---
PROCEDURE: XR CHEST FOR PICC 1V INDICATIONS: picc placement COMPARISON: [facility], CR, XR CHEST 1V, 11/18/2018, 13:44. FINDINGS: Left-sided PICC line is seen, the tip is in the region of SVC. ET tube tip is approximately 3 cm above the zach. Enteric tube tip is in the region of distal stomach lumen. Left chest wall cardiac device leads are seen in the region of right atrium and right ventricle. Right apical scarring/atelectasis is seen. No focal infiltrate or pneumothorax. No pleural effusion. Cardiac silhouette is enlarged. IMPRESSION: Left-sided PICC line tip is in the region of SVC. Dictated by: Shun Flores M.D. on 11/18/2018 at 20:26 Approved by: Shun Flores M.D. on 11/18/2018 at 20:30
[2018-11-18 19:25] LABS: Lactate (Lactic Acid) 1.1 mmol/L (0.7-2.1)
[2018-11-18 19:38] LABS: Fractionated Inspired Oxygen 35; HCO3 ABG 19 mmol/L (22-26); Oxygen Saturation ABG 92 % (95-100); PCO2 ABG 47.6 mmHg (35-45); PO2 ABG 78 mmHg (80-100); TCO2 ABG 20 mmol/L (21-31)
[2018-11-18 19:39] LABS: pH ABG 7.21 (7.35-7.45)
[2018-11-18] MEDS: SODIUM CHLORIDE 0.9% 1,000 ML 100 ML IV (21:10)
[2018-11-18 21:15] LABS: Magnesium 1.7 mg/dL (1.6-2.3)
[2018-11-18] MEDS: SODIUM POLYSTYRENE SULFON/SORB 15 GM/60 ML CUP PO (21:33)
[2018-11-19] VITALS (38 sets, daily range): BP systolic 80–111; BP diastolic 32–68; PULSE 64–84; RESP 16–22; TEMP 35.9–36.4; O2SAT 93–100
--- NOTE | 2018-11-19 | DI.RAD.S_ITS ---
PROCEDURE: XR CHEST 1V INDICATIONS: Intubation, ventilation TECHNIQUE: One view of the chest was acquired. COMPARISON: [facility], CT, CT CHEST ABD PEL WO CON, 11/18/2018, 9:59. [facility], CR, XR CHEST 1V, 11/18/2018, 13:44. [facility], CR, XR CHEST FOR PICC 1V, 11/18/2018, 19:18. FINDINGS: Surgical changes and devices: An endotracheal tube is seen, with the tip 5 cm above the zach. A gastric tube is seen, with the tip not visible, yet traversing below the level of the diaphragm. An AICD is seen. The leads are seen in stable positions. Lungs and pleura: On this supine examination, no large pneumothorax or large pleural effusions are seen. The patient's lingular masslike density is again seen. Mediastinum: Mediastinal contours appear normal. Heart size is normal. Bones and chest wall: No suspicious bony lesions. Overlying soft tissues appear unremarkable. IMPRESSION: The tip of the endotracheal tube is seen 5 cm above the zach. Dictated by: Epifanio Díaz M.D. on 11/19/2018 at 7:29 Approved by: Epifanio Díaz M.D. on 11/19/2018 at 7:30
[2018-11-19] MEDS: NOREPINEPHRINE 4 MG in DEXTROSE 5% IN WATER 250 ML 15.24 ML IV (00:04)
[2018-11-19 00:37] LABS: HCO3 ABG 18 mmol/L (22-26); Oxygen Saturation ABG 95 % (95-100); PCO2 ABG 40.2 mmHg (35-45); PO2 ABG 84 mmHg (80-100); TCO2 ABG 19 mmol/L (21-31); pH ABG 7.26 (7.35-7.45)
[2018-11-19 00:38] LABS: Fractionated Inspired Oxygen 35
[2018-11-19 01:28] LABS: Add Manual Diff / Slide Review NO; Basophils Absolute Auto 100 /uL (0-100); Basophils Percent Auto 0.2 % (0-2); Eosinophils Absolute Auto 0 /uL (0-450); Hematocrit 36.2 % (41-53); Hemoglobin 11.6 g/dL (13.5-17.5); Lymphocytes Absolute Auto 900 /uL (1100-4500); Lymphocytes Percent Auto 4.1 % (25-40); Mean Corpuscular HGB Conc 31.9 % (30-36); Mean Corpuscular Hemoglobin 30.6 PG (26-34); Mean Corpuscular Volume 95.7 fL (80-100); Monocytes Absolute Auto 1200 /uL (0-900); Monocytes Percent Auto 5.4 % (3-14); Neutrophils Absolute Auto 20400 /uL (1500-7000); Neutrophils Percent Auto 90.3 % (50-75); Platelet Count 297 X10^3/uL (150-400); Red Blood Cell Count 3.78 X10^6/uL (4.5-5.9); Red Cell Distribution Width 15.1 % (11.6-14.8); White Blood Cell Count 22.6 X10^3/uL (4.5-11.0)
[2018-11-19] MEDS: SODIUM BICARB 8.4% SYRINGE 50 MEQ IV (01:28)
[2018-11-19 01:38] LABS: BUN Creatinine Ratio 27.2 (6-22); Blood Urea Nitrogen 49 mg/dL (9-20); Calcium 8.3 mg/dL (8.4-10.2); Carbon Dioxide 18 mmol/L (22-32); Chloride 103 mmol/L (98-107); Estimated Glomerular Filt Rate 37.3 mL/min (>60); Glucose 174 mg/dL (80-110); HEMOLYSIS 24 (0-50); Sodium 133 mmol/L (137-145)
--- NOTE | 2018-11-19 01:42 | PC.NURSE ---
Addendum entered by Dominga Camacho R.N. 11/19/18 06:52: Able to titrate Levophed down to 6mcg/min by 0700, received 500ml NS bolus, total UOP 250ml. 200ml bile fluid out OGT. Patient is comfortably sedated with Versed at 3mg/hr and Fentanyl at 0.5mcg/hr. Original Note: 0000-Patient is sedated with Versed at 4mg/hr and Fentanyl at 0,5mcg/hr, RASS -3, stopped Fentanyl and decreased Versed to 2mg/hr for NBP 70s-80s/30s-40s MAP <60. Levophed initiated per order, titrating 4-8mcg/min to keep MAP >60, see vital trends. Tito GUZMÁN notified, ABG and labs drawn. 0130-Amp Sodium Bicarb started as ordered. Patient agitated during turning, Fentanyl restarted at 0.25mcg/hr.
[2018-11-19 01:54] LABS: Procalcitonin 2.67 ng/mL (<0.5)
[2018-11-19] MEDS: SODIUM CHLORIDE 0.9% 500 ML IV (02:45)
[2018-11-19] MEDS: SODIUM CHLORIDE 0.9% 250 ML 21 ML IV ×2 (03:19→16:01)
[2018-11-19] MEDS: ALBUTEROL/IPRATROPIUM 3 ML AMPUL INH ×6 (03:21→23:28)
[2018-11-19] MEDS: methylPREDNISolone 125 MG/2 ML VIAL 60 MG IV ×3 (03:57→19:17)
[2018-11-19] MEDS: SODIUM CHLORIDE 0.9% 1,000 ML 100 ML IV ×2 (03:58→19:14)
[2018-11-19] MEDS: DOXYCYCLINE 100 MG in SODIUM CHLORIDE 0.9% 100 ML IV ×2 (04:46→16:46)
[2018-11-19 05:51] LABS: Fractionated Inspired Oxygen 35; HCO3 ABG 19 mmol/L (22-26); Oxygen Saturation ABG 92 % (95-100); PO2 ABG 71 mmHg (80-100); TCO2 ABG 20 mmol/L (21-31); pH ABG 7.27 (7.35-7.45)
[2018-11-19 05:52] LABS: PCO2 ABG 40.3 mmHg (35-45)
[2018-11-19] MEDS: CEFEPIME 2 GM in SODIUM CHLORIDE 0.9% 100 ML 200 ML IV ×2 (08:07→21:54)
[2018-11-19] MEDS: MIDAZOLAM 50 MG in DEXTROSE 5% IN WATER 250 ML 15 ML IV (08:08)
[2018-11-19 08:13] LABS: Add Manual Diff / Slide Review NO; Basophils Absolute Auto 100 /uL (0-100); Basophils Percent Auto 0.3 % (0-2); Eosinophils Absolute Auto 0 /uL (0-450); Eosinophils Percent Auto 0.1 % (2-4); Hematocrit 35.1 % (41-53); Hemoglobin 11.4 g/dL (13.5-17.5); Lymphocytes Absolute Auto 700 /uL (1100-4500); Lymphocytes Percent Auto 3.7 % (25-40); Mean Corpuscular HGB Conc 32.4 % (30-36); Mean Corpuscular Hemoglobin 30.4 PG (26-34); Mean Corpuscular Volume 93.6 fL (80-100); Monocytes Absolute Auto 1400 /uL (0-900); Monocytes Percent Auto 6.8 % (3-14); Neutrophils Absolute Auto 17700 /uL (1500-7000); Neutrophils Percent Auto 89.1 % (50-75); Platelet Count 277 X10^3/uL (150-400); Red Blood Cell Count 3.75 X10^6/uL (4.5-5.9); Red Cell Distribution Width 15.1 % (11.6-14.8); White Blood Cell Count 19.9 X10^3/uL (4.5-11.0)
[2018-11-19 08:25] LABS: BUN Creatinine Ratio 30.7 (6-22); Blood Urea Nitrogen 46 mg/dL (9-20); Carbon Dioxide 21 mmol/L (22-32); Chloride 103 mmol/L (98-107); Glucose 201 mg/dL (80-110); HEMOLYSIS < 15 (0-50); Potassium 4.7 mmol/L (3.4-5.1); Sodium 133 mmol/L (137-145)
--- NOTE | 2018-11-19 09:23 | CM.DPC ---
DCP Cont: Patient is intubated at this time. Went ahead and placed this rn field case manager's name on white board in room. not present. Tyshawn, ICU nurse stated, patient is quite ill at this time, unknown as to how long he will remain intubated. P: DCP will continue to follow closely. At this time, too early to determine discharge plan since patient is quite ill. Will continue to be a resource if spouse has any questions. Monse Powell RN/[employer]
[2018-11-19] MEDS: NOREPINEPHRINE 4 MG in DEXTROSE 5% IN WATER 250 ML 19.05 ML IV (09:27)
--- NOTE | 2018-11-19 10:47 | PM.PN.1 ---
Subjective Date Patient Seen: 11/19/18 Interval history: The patient is a 73-year-old male who was admitted to the hospital for acute respiratory failure secondary to COPD and pneumonia. The patient's respiratory panel was positive for parainfluenza virus. He developed progressive shortness of breath requiring intubation. The patient became hypotensive after intubation. He is on Levophed currently. His lactic acid level was 1.2 on admission. Repeat lactate was 2. The patient has a history of congestive heart failure. His BNP has remained elevated. His urine output improved with IV hydration. He continues to be sedated on the ventilator. His was at the bedside. I communicated to her the findings on CT scan which showed a masslike density in the lingula. The patient had metabolic acidosis which appears to be improving. Exam Vital Signs (past 8 hours): - 11/19/18 04:00 11/19/18 04:56 11/19/18 05:50 Temperature 97.3 F L Pulse Rate 74 75 Respiratory Rate 17 16 Blood Pressure 93/54 L 101/61 Pulse Oximetry 96 98 11/19/18 07:00 11/19/18 07:30 11/19/18 08:00 Temperature 97.3 F L Pulse Rate 71 72 69 Respiratory Rate 17 17 18 Blood Pressure 88/52 L 89/60 L 99/43 L Pulse Oximetry 96 97 97 11/19/18 08:04 11/19/18 09:00 11/19/18 10:00 Temperature Pulse Rate 72 74 74 Respiratory Rate 20 19 18 Blood Pressure 93/37 L 95/59 L Pulse Oximetry 95 98 Fraction of Inspired Oxygen 0.35 Oxygen Delivery Method Mechanical Ventilation Oxygen Flow Rate 55 Narrative Exam Narrative: Intubated male unresponsive, sedated on the ventilator Lungs: Decreased breath sounds, occasional crackles noted Cardiac exam: Regular rate and rhythm normal S1-S2 Abdomen: Soft and nondistended, no appreciable hepatosplenomegaly Extremities: No edema Objective Labs Result Diagrams: 11/19/18 08:00 11/19/18 08:00 Labs: Laboratory Results - last 24 hr 11/18/18 11/18/18 11/18/18 11:35 19:01 19:10 WBC RBC Hgb Hct MCV MCH MCHC RDW Plt Count Neut % (Auto) Lymph % (Auto) Woodruff % (Auto) Eos % (Auto) Baso % (Auto) Neut # (Auto) Lymph # (Auto) Woodruff # (Auto) Eos # (Auto) Baso # (Auto) ABG pH 7.31 L 7.21 L* ABG pCO2 42.9 47.6 H ABG pO2 111 H 78 L ABG HCO3 22 19 L ABG Total CO2 23 20 L ABG O2 Saturation 98 92 L ABG Base Excess -5.0 L -9.0 L FiO2 0.35 35 Sodium Potassium Chloride Carbon Dioxide BUN Creatinine Estimated GFR BUN/Creatinine Ratio Glucose Lactate 1.1 Calcium Magnesium Procalcitonin 11/18/18 11/19/18 11/19/18 20:55 00:26 01:15 WBC 22.6 H RBC 3.78 L Hgb 11.6 L Hct 36.2 L MCV 95.7 MCH 30.6 MCHC 31.9 RDW 15.1 H Plt Count 297 Neut % (Auto) 90.3 H Lymph % (Auto) 4.1 L Woodruff % (Auto) 5.4 Eos % (Auto) 0.0 L Baso % (Auto) 0.2 Neut # (Auto) 61346 H Lymph # (Auto) 900 L Woodruff # (Auto) 1200 H Eos # (Auto) 0 Baso # (Auto) 100 ABG pH 7.26 L* ABG pCO2 40.2 ABG pO2 84 ABG HCO3 18 L ABG Total CO2 19 L ABG O2 Saturation 95 ABG Base Excess -9.0 L FiO2 35 Sodium Potassium Chloride Carbon Dioxide BUN Creatinine Estimated GFR BUN/Creatinine Ratio Glucose Lactate Calcium Magnesium 1.7 Procalcitonin 11/19/18 11/19/18 11/19/18 01:15 01:15 05:39 WBC RBC Hgb Hct MCV MCH MCHC RDW Plt Count Neut % (Auto) Lymph % (Auto) Woodruff % (Auto) Eos % (Auto) Baso % (Auto) Neut # (Auto) Lymph # (Auto) Woodruff # (Auto) Eos # (Auto) Baso # (Auto) ABG pH 7.27 L* ABG pCO2 40.3 ABG pO2 71 L ABG HCO3 19 L ABG Total CO2 20 L ABG O2 Saturation 92 L ABG Base Excess -8.0 L FiO2 35 Sodium 133 L Potassium 5.0 Chloride 103 Carbon Dioxide 18 L BUN 49 H Creatinine 1.80 H Estimated GFR 37.3 L BUN/Creatinine Ratio 27.2 H Glucose 174 H Lactate Calcium 8.3 L Magnesium Procalcitonin 2.67 H 11/19/18 11/19/18 08:00 08:00 WBC 19.9 H RBC 3.75 L Hgb 11.4 L Hct 35.1 L MCV 93.6 MCH 30.4 MCHC 32.4 RDW 15.1 H Plt Count 277 Neut % (Auto) 89.1 H Lymph % (Auto) 3.7 L Woodruff % (Auto) 6.8 Eos % (Auto) 0.1 L Baso % (Auto) 0.3 Neut # (Auto) 28917 H Lymph # (Auto) 700 L Woodruff # (Auto) 1400 H Eos # (Auto) 0 Baso # (Auto) 100 ABG pH ABG pCO2 ABG pO2 ABG HCO3 ABG Total CO2 ABG O2 Saturation ABG Base Excess FiO2 Sodium 133 L Potassium 4.7 Chloride 103 Carbon Dioxide 21 L BUN 46 H Creatinine 1.50 H Estimated GFR 46.0 L BUN/Creatinine Ratio 30.7 H Glucose 201 H Lactate Calcium 8.0 L Magnesium Procalcitonin Assessment & Plan (1) Acute and chronic respiratory failure with hypoxia: Problem details: Patient admitted to the hospital with acute respiratory failure. He progressed from BiPAP to intubation. He continues to require intubation at this time. Current visit: Yes Status: Acute (2) Acute exacerbation of chronic obstructive pulmonary disease (COPD): Problem details: Patient with a 60 pack-year history of smoking, presented with COPD present on admission. Patient will continue with nebulizers and steroids. Current visit: Yes Status: Acute (3) Chronic renal failure: Problem details: Chronic renal failure, present on admission will continue IV hydration Current visit: Yes Status: Acute (4) Hypotension: Problem details: Hypotension, persistent. Will continue to wean Levophed off and utilize IV hydration as needed Current visit: Yes Status: Acute (5) Persistent atrial fibrillation: Problem details: Chronic persistent atrial fibrillation, present on admission. Once the patient's hypotension has improved will resume sotalol Current visit: Yes Status: Acute (6) History of coronary artery disease: Problem details: History of coronary artery disease, status post [place] with stenting. Will resume metoprolol once blood pressure has improved Current visit: Yes Status: Acute (7) Left lower lobe pneumonia: Problem details: Left lower lobe pneumonia, present on admission, known apparent influenza virus. Patient with a left lingular mass like opacity. Will follow up to rule out possible lung cancer once the patient is extubated Current visit: Yes Status: Acute (8) Hyperlipidemia: Problem details: Hyperlipidemia, chronic Current visit: Yes Status: Acute (9) Gout: Problem details: Gout, chronic Current visit: Yes Status: Acute (10) Chronic systolic heart failure: Problem details: Chronic systolic heart failure, present on admission, his secubitril has been held. Will resume once he is no longer hypotensive Current visit: Yes Status: Acute Assessment & Plan narrative: 45 minutes is spent with this critically ill patient.
[2018-11-19] MEDS: FAMOTIDINE 20 MG/50 ML PIGGYBACK 200 MG IV (11:55)
[2018-11-19] MEDS: SOTALOL 80 MG TABLET 120 MG PO (12:45)
--- NOTE | 2018-11-19 14:14 | PC.NURSE ---
Day Shift Note Patient sedated to RASS -3 with versed at 3 mg/hr and fentanyl at 0.5 mcg/kg/hr. Briefly opens eyes to voice but does not track/follow movement. Able to move all extremities, ROM exercises done, soft wrist restraints in place to BUEs. Lung sounds coarse and tight bilaterally, oxygen sats 95-97% on FiO2 35% on ventilator. Suctioning small amounts yellow sputum up ET tube. NSR with PVCs - a 14 beat run of V tach noted at 1235. Dr. Starr notified and ordered pt's sotalol to be given down OG tube (metoprolol ER being held at this time). OG tube otherwise connected to LIS. Levophed gtt at 6 mcg/min at start of shift, titrated down to 4 mcg/min with MAP remaining > 60. Armendariz catheter in place and draining clear yellow urine. Bed alarm on. at bedside intermittently, updated throughout shift.
--- NOTE | 2018-11-19 16:08 | RT ---
escapement matcher EOS note. Lung sounds tight and distant, occ exp wheeze heard. SX for small amts thick yellow phlegm. Pt continues on Versed/Fentanyl/Norepi drip. Pt does awake some, but easily drifts back to sleep. Pt is not bucking the vent. Plan per Dr. Starr was to try sed angel, but we were unable to wean the norepi. ABG drawn L radial with doppler, no complications.
[2018-11-19 16:23] LABS: HCO3 ABG 21 mmol/L (22-26); PCO2 ABG 38.7 mmHg (35-45); PO2 ABG 79 mmHg (80-100); TCO2 ABG 22 mmol/L (21-31); pH ABG 7.33 (7.35-7.45)
[2018-11-19 16:24] LABS: Oxygen Saturation ABG 95 % (95-100)
[2018-11-19 16:25] LABS: Fractionated Inspired Oxygen 0.35
[2018-11-19] MEDS: fentaNYL 1,000 MCG in DEXTROSE 5% IN WATER 250 ML 16.48 ML IV (18:02)
--- NOTE | 2018-11-19 20:33 | PM.EVENT ---
Date Patient Seen: 11/19/18 Time Patient Seen: 20:28
[2018-11-19] MEDS: ENOXAPARIN 80 MG/0.8 ML SYRINGE SUBCUT (21:54)
[2018-11-19] MEDS: SOTALOL 80 MG TABLET 120 MG TUBE (21:55)
--- NOTE | 2018-11-19 22:59 | PC.NURSE ---
margie note pt wakeful after turning, oral care. Increased Versed from 3 to 4 mg/hr. Final titrations at 22:30 were, levophed at 2.5 mcg/min, versed at 2.5 mg/hr, fentanyl at 0.75 mcg/kg/hr. Sotalol given, per via OGT. OGT clamped for 45 min.
[2018-11-20] VITALS (30 sets, daily range): BP systolic 89–137; BP diastolic 45–85; PULSE 64–155; RESP 15–57; TEMP 35.8–36.9; O2SAT 93–100
--- NOTE | 2018-11-20 | DI.RAD.S_ITS ---
PROCEDURE: XR CHEST 1V INDICATIONS: intubated TECHNIQUE: One view of the chest was acquired. COMPARISON: [facility], CR, XR CHEST 1V, 11/19/2018, 5:17. [facility], CR, XR CHEST 1V, 11/18/2018, 13:44. [facility], CT, CT CHEST ABD PEL WO CON, 11/18/2018, 9:59. [facility], CR, XR CHEST 1V, 11/17/2018, 20:02. FINDINGS: Surgical changes and devices: An endotracheal tube is seen, with the tip 5 cm above the zach. The tip of endotracheal tube is seen overlying the mid to distal stomach. An AICD is seen. The leads are seen in stable positions. Lungs and pleura: Interstitial prominence is seen throughout. The patient's known lingular mass is partially obscured. On this semiupright portable chest examination, no large pneumothorax or large pleural effusions are seen. No focal infiltrates are seen. Mediastinum: Mediastinal contours appear normal. Heart size is normal. Bones and chest wall: No suspicious bony lesions. Age-appropriate bony degenerative changes are seen. Overlying soft tissues appear unremarkable. IMPRESSION: The tip of the endotracheal tube is seen 5 cm above the zach. The tip of the gastric tube is seen overlying the mid to distal stomach or Interstitial prominence is seen throughout. The interstitial prominence is nonspecific, yet may be related to pulmonary edema. Dictated by: Epifanio Díaz M.D. on 11/20/2018 at 7:10 Approved by: Epifanio Díaz M.D. on 11/20/2018 at 7:12
[2018-11-20] MEDS: MIDAZOLAM 50 MG in DEXTROSE 5% IN WATER 250 ML 17.5 ML IV (00:10)
[2018-11-20] MEDS: FAMOTIDINE 20 MG/50 ML PIGGYBACK 200 MG IV (00:13)
[2018-11-20] MEDS: ALBUTEROL/IPRATROPIUM 3 ML AMPUL INH ×4 (03:29→17:25)
[2018-11-20 04:54] LABS: Add Manual Diff / Slide Review NO; Basophils Absolute Auto 0 /uL (0-100); Basophils Percent Auto 0.1 % (0-2); Eosinophils Absolute Auto 0 /uL (0-450); Hematocrit 31.4 % (41-53); Hemoglobin 10.2 g/dL (13.5-17.5); Lymphocytes Absolute Auto 500 /uL (1100-4500); Mean Corpuscular HGB Conc 32.4 % (30-36); Mean Corpuscular Hemoglobin 30.4 PG (26-34); Mean Corpuscular Volume 93.8 fL (80-100); Monocytes Absolute Auto 600 /uL (0-900); Monocytes Percent Auto 4.6 % (3-14); Neutrophils Absolute Auto 11900 /uL (1500-7000); Neutrophils Percent Auto 91.3 % (50-75); Platelet Count 239 X10^3/uL (150-400); Red Blood Cell Count 3.35 X10^6/uL (4.5-5.9); Red Cell Distribution Width 15.1 % (11.6-14.8)
[2018-11-20 04:59] LABS: Blood Urea Nitrogen 35 mg/dL (9-20); Calcium 7.2 mg/dL (8.4-10.2); Carbon Dioxide 21 mmol/L (22-32); Chloride 105 mmol/L (98-107); Estimated Glomerular Filt Rate > 60.0 mL/min (>60); Glucose 182 mg/dL (80-110); Sodium 133 mmol/L (137-145)
[2018-11-20 05:02] LABS: HEMOLYSIS 57 (0-50); Potassium 4.3 mmol/L (3.4-5.1)
[2018-11-20] MEDS: methylPREDNISolone 125 MG/2 ML VIAL 60 MG IV (05:12)
[2018-11-20] MEDS: DOXYCYCLINE 100 MG in SODIUM CHLORIDE 0.9% 100 ML IV (05:15)
[2018-11-20] MEDS: NOREPINEPHRINE 4 MG in DEXTROSE 5% IN WATER 250 ML 7.62 ML IV (05:16)
[2018-11-20] MEDS: SODIUM CHLORIDE 0.9% 250 ML 21 ML IV (05:17)
[2018-11-20 06:15] LABS: HCO3 ABG 19 mmol/L (22-26); Oxygen Saturation ABG 93 % (95-100); PCO2 ABG 45.3 mmHg (35-45); PO2 ABG 80 mmHg (80-100); TCO2 ABG 21 mmol/L (21-31); pH ABG 7.24 (7.35-7.45)
[2018-11-20 06:16] LABS: Fractionated Inspired Oxygen 0.35
--- NOTE | 2018-11-20 06:47 | PC.NURSE ---
NOC Shift: Pt remains vented, sedated on Fentanyl, Versed gtts titrated to RASS -3, or affect. Levophed gtt continues to keep SBP >60. Pt has been increasingly more stable throughout shift w/o much titration changes. At times he does wake spontaneously, coughing reaching for ETT w/both hands, restraints secure. Has been noted to nod once to yes, no question. Moves all extremities. VSS, SR BBB on tele. Pt has pacemaker has not been noted to pace, also w/AICD. Stable vent settings however pH this AM on ABG 7.23 pt baseline. Stable sats on 35%. BS tight, diminished with exp. wheezing posterior right lobe. Remains in droplet isolation. ICU care, no changes.
--- NOTE | 2018-11-20 08:27 | DIET.PN ---
Consult received r/t poor appetite. 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 On ventilator since admit; LOS day 3. On versed. Dx: londono, flu, resp failure - vented Hx: multiple medical problems BMI 28 B/P: 89/59 L Assessment: Three days on vent/NPO. Hemodynamically unstable on pressor amines. Intervention: Do not rec nutrition support until pt hemodynamically stable Plan: will follow
[2018-11-20] MEDS: CEFEPIME 2 GM in SODIUM CHLORIDE 0.9% 100 ML 200 ML IV ×2 (08:36→21:22)
[2018-11-20] MEDS: SODIUM BICARB 8.4% SYRINGE 85 MEQ IV (08:37)
[2018-11-20] MEDS: ENOXAPARIN 80 MG/0.8 ML SYRINGE SUBCUT (08:39)
--- NOTE | 2018-11-20 08:39 | P.PN_ITS ---
Subjective Date Patient Seen: 11/20/18 Interval history: The patient had uneventful night. He remains intubated and sedated on Versed and fentanyl. He continues on 3 mics of nor epi as he becomes hypotensive when this is weaned off. Today the plan is to taper his sedation and try a weaning trial. If his weaning trial a successful he will be extubated. In addition will continue with the Levophed with a plan to taper off if at all possible. The patient is continuing to get IV fluids given his hypotension. However he does have a history known coronary artery disease/congestive heart failure. Will likely need to discontinue IV fluids to assist with extubation. Exam Vital Signs (past 8 hours): - 11/20/18 01:00 11/20/18 01:31 11/20/18 02:31 Temperature Pulse Rate 65 65 69 Respiratory Rate 16 16 16 Blood Pressure 98/58 L 97/57 L 95/57 L Pulse Oximetry 97 97 93 11/20/18 04:00 11/20/18 05:00 11/20/18 06:00 Temperature 97.4 F L Pulse Rate 75 68 77 Respiratory Rate 16 16 16 Blood Pressure 90/56 L 106/68 89/59 L Pulse Oximetry 97 96 11/20/18 07:15 Temperature Pulse Rate 64 Respiratory Rate 16 Blood Pressure Pulse Oximetry 98 Fraction of Inspired Oxygen 35 Oxygen Delivery Method Mechanical Ventilation Oxygen Flow Rate 55 Narrative Exam Narrative: Sedated intubated male on the ventilator Lungs: Decreased breath sound with scattered end-expiratory wheezing Cardiac exam: Regular rate and rhythm normal S1 and S2 with a 2/6 systolic ejection murmur Abdomen: Soft and nontender Extremities: No edema Objective Labs Result Diagrams: 11/20/18 04:33 11/20/18 04:33 Labs: Laboratory Results - last 24 hr 11/19/18 11/20/18 11/20/18 15:46 04:33 04:33 WBC 13.0 H RBC 3.35 L Hgb 10.2 L Hct 31.4 L MCV 93.8 MCH 30.4 MCHC 32.4 RDW 15.1 H Plt Count 239 Neut % (Auto) 91.3 H Lymph % (Auto) 4.0 L Campbell % (Auto) 4.6 Eos % (Auto) 0.0 L Baso % (Auto) 0.1 Neut # (Auto) 62459 H Lymph # (Auto) 500 L Campbell # (Auto) 600 Eos # (Auto) 0 Baso # (Auto) 0 ABG pH 7.33 L ABG pCO2 38.7 ABG pO2 79 L ABG HCO3 21 L ABG Total CO2 22 ABG O2 Saturation 95 ABG Base Excess -5.0 L FiO2 0.35 Sodium 133 L Potassium 4.3 Chloride 105 Carbon Dioxide 21 L BUN 35 H Creatinine 1.00 Estimated GFR > 60.0 BUN/Creatinine Ratio 35.0 H Glucose 182 H Calcium 7.2 L 11/20/18 06:00 WBC RBC Hgb Hct MCV MCH MCHC RDW Plt Count Neut % (Auto) Lymph % (Auto) Campbell % (Auto) Eos % (Auto) Baso % (Auto) Neut # (Auto) Lymph # (Auto) Campbell # (Auto) Eos # (Auto) Baso # (Auto) ABG pH 7.24 L* ABG pCO2 45.3 H ABG pO2 80 ABG HCO3 19 L ABG Total CO2 21 ABG O2 Saturation 93 L ABG Base Excess -8.0 L FiO2 0.35 Sodium Potassium Chloride Carbon Dioxide BUN Creatinine Estimated GFR BUN/Creatinine Ratio Glucose Calcium Assessment & Plan (1) Acute respiratory failure with hypoxia: Problem details: Patient presented with acute hypoxic respiratory failure, present on admission. He developed progressive shortness of breath failed BiPAP and required intubation. He has been managed with steroids inhalers and antibiotics. Will attempt a weaning trial today. Chest x-ray is unremarkable except for the obscured lingular mass, he also has some evidence of pulmonary edema. Current visit: Yes Status: Acute (2) Acute on chronic systolic heart failure: Problem details: Patient with known acute on chronic heart failure. Given his hypotension he was given IV fluids. These will be held today. Current visit: Yes Status: Acute (3) Left lower lobe pneumonia: Problem details: Left lower lobe pneumonia, present on admission, known para influenza virus. Patient with a left lingular mass like opacity. Will follow up to rule out possible lung cancer once the patient is extubated Current visit: Yes Status: Acute (4) History of coronary artery disease: Problem details: History of coronary artery disease, status post [place] with stenting. Will resume metoprolol once blood pressure has improved Patient developed a 10 beat run of V-tach yesterday and his sotalol was restarted. He has a prolonged QT interval as well. Will continue to monitor closely Current visit: Yes Status: Acute (5) Persistent atrial fibrillation: Problem details: Chronic persistent atrial fibrillation, present on admission. Patient is on sotalol. Will resume metoprolol once he is extubated and no longer on pressors. Current visit: Yes Status: Acute (6) Hyperlipidemia: Problem details: Hyperlipidemia, chronic Current visit: Yes Status: Acute (7) Chronic renal failure: Problem details: Chronic renal failure, present on admission Current visit: Yes Status: Acute (8) Hypotension: Problem details: Hypotension, persistent. Will continue to wean Levophed off and utilize IV hydration as needed Current visit: Yes Status: Acute Assessment & Plan narrative: Angular infiltrate/mass like density. Patient will have outpatient evaluation of this.
[2018-11-20] MEDS: SOTALOL 80 MG TABLET 120 MG TUBE ×2 (09:37→21:08)
[2018-11-20 10:19] LABS: HCO3 ABG 23 mmol/L (22-26); PO2 ABG 62 mmHg (80-100); TCO2 ABG 24 mmol/L (21-31); pH ABG 7.39 (7.35-7.45)
[2018-11-20 10:20] LABS: Oxygen Saturation ABG 91 % (95-100)
[2018-11-20 10:21] LABS: Fractionated Inspired Oxygen 35
--- NOTE | 2018-11-20 10:34 | RT ---
Pt has been on CPAP 1 hour, seems to tolerate, but breathing remains laborous. RSBI 57 VC 890 TV 415 RR 24 VE 8.4 nif -39 ABG drawn L radial with doppler and without complications. All results discussed with Dr. Starr
--- NOTE | 2018-11-20 10:41 | PC.NURSE ---
Addendum entered by Yo Hedrick R.N. 11/20/18 12:36: Pt sitting bolt upright. Assisted pt with teeth brushing and mouth swab prior to RN bedside swallow. Pt is noted to have audibly wet breath sounds and course rhonchi/crackles in bilat upper lobes. Called to Dr. Starr and reported assessment findings. Also requested clarification for xarelto administration (lovenox was given this AM and pt has wet voice). Instructed to give as ordered. Will monitor. Addendum entered by Yo Hedrick R.N. 11/20/18 11:57: Spoke with Dr. Starr 1120. Reported pt tolerated extubation well. Reported 1115 VS- HR 90 BP 121/46 (82) RR 26 labored SPO2 100% of 9L HFNC. Reviewed last ABG. Original Note: 0800- Dr. Starr on rounds at bedside. Assessed pt together. Reviewed VS, labs, ABGs, assessment findings. Orders received for sedation vacation and CPAP trial. Weaned versed and fentanyl to off (see MAR titration) and pt awoke following directions and nodding head yes/no appropriately. Oriented to person/place/date/time/situation. Reviewed plan of care for today and pt nods head yes that he understands. BP stable with MAPs greater than 65 consistently. Levophed weaned to off (see MAR titration). RT to bedside initiated CPAP trial at 0905. Pt tolerated well with adequate TV and maintaining O2 sats of 99-100% on 35% FIO2. RT obtained ABG and reported results and toleration of breathing trial to Dr. Starr. Orders rec'd to extubate. Pt was extubated to 9L high flow nasal cannula at 1053. Bed is in chair position. Pt is using yankeur to perform oral suctioning on his own. Reinforced plan of care and safety measures. Reviewed use of call light and instructed pt to wait for assistance before getting OOB. He verbalizes understanding. Family at bedside updated on pt condition.
--- NOTE | 2018-11-20 10:55 | RT ---
Addendum entered by Wing Jack, RT 11/20/18 14:18: Pt still seems dyspnic. Lung sounds with diffuse, coarse insp crackles and scattered rhonchi, not cleared with cough. Pt has weak loose cough. Lasix given with good UOP (350 cc hazy lj urine over 1.[address] Starr at bedside. Requested permission to contact a DME ([employer]) and request a Trilogy NHV, which she agree do. Denied a request for ABG at this time. Nurse Yo at bedside also. Original Note: Verbal order Dr Starr to extubate. Have Bipap on standby, per Dr. Starr, which it is. O2 sats 100% on 10 LPM HFNC. Lung sounds remain tight and distatant, pt seems to be laboring with his breathing, but states he is breathing fine. Neb given
[2018-11-20] MEDS: BUDESONIDE 60 PUFF/DEVICE INHALER INH ×2 (11:07→17:58)
[2018-11-20 12:27] LABS: PCO2 ABG 38.5 mmHg (35-45)
[2018-11-20] MEDS: FUROSEMIDE 20 MG/2 ML VIAL IV ×2 (12:51→21:19)
[2018-11-20] MEDS: ALBUTEROL 2.5 MG/3 ML NEB (ADULT) INH (13:56)
[2018-11-20 14:50] LABS: Blood Urea Nitrogen 33 mg/dL (9-20); Calcium 7.4 mg/dL (8.4-10.2); Carbon Dioxide 26 mmol/L (22-32); Chloride 104 mmol/L (98-107); Estimated Glomerular Filt Rate > 60.0 mL/min (>60); Glucose 141 mg/dL (80-110); HEMOLYSIS 19 (0-50); Potassium 4.2 mmol/L (3.4-5.1); Sodium 137 mmol/L (137-145)
[2018-11-20] MEDS: MORPHINE 2 MG/ML INJ IV ×2 (15:58→23:33)
[2018-11-20] MEDS: METOPROLOL TARTRATE 5 MG/5 ML INJ IV ×3 (17:05→21:40)
[2018-11-20] MEDS: NYSTATIN SUSP 500,000 UNIT/5 ML UDC 500000 UNIT PO (21:08)
[2018-11-20] MEDS: ENOXAPARIN 100 MG/ML SYRINGE 85 MG SUBCUT (21:09)
--- NOTE | 2018-11-20 22:11 | PM.EVENT ---
Date Patient Seen: 11/20/18 Time Patient Seen: 22:04 HR 140s. Shallow breathing effort. Labored. Crackles. Received 5 mg of IV metoprolol (2139) w/ minimal response. Received lasix (2118)earlier in the evening - diuresed On 5L O2, not having increased O2 demand AFIB, converted to SR, then alternating V-Paced rhythm 2207 alternating w/ SR - IV digoxin .25 mcg Q6H - check Mg and K labs reviewed, mag sub-optimal will replace and check in am
[2018-11-20] MEDS: DIGOXIN 500 MCG/2 ML AMPUL 250 MCG IV (22:18)
[2018-11-20 22:28] LABS: HEMOLYSIS < 15 (0-50); Magnesium 1.3 mg/dL (1.6-2.3); Potassium 3.5 mmol/L (3.4-5.1)
--- NOTE | 2018-11-20 22:56 | PC.NURSE ---
margie note pt restless with increased work of breathing. Pt sitting up at edge of bed. Pt knows he is in hospital in [place]. Pt calm and cooperative. Pt able to assist in getting positioned in bed. Pt has gone into A-fiv RVR twice this shift. Gave 10 mg IV metoprolol for first occurance, then 5 mg IV metoprolol and 0.25 mg IV digoxin. Labs drawn via PICC. Pt more confused since 21:30. He is no longer aware of where he is.
[2018-11-20] MEDS: MAGNESIUM SULFATE 2 GM/50 ML PIGGYBACK IV (23:33)
[2018-11-21] VITALS (19 sets, daily range): BP systolic 109–134; BP diastolic 37–86; PULSE 83–98; RESP 18–25; TEMP 36.1–37.1; O2SAT 94–100; BMI 27.7
--- NOTE | 2018-11-21 00:37 | PC.NURSE ---
Addendum entered by Dominga Camacho R.N. 11/21/18 04:31: 2 person assist to BSC after neb tx, HR <100, RR 20s, SpO2 >94%, denies dizziness, no BM, only flatus. Scheduled IV Digoxin given when back to bed. Addendum entered by Dominga Camacho R.N. 11/21/18 02:40: Patient remains somewhat restless, only dozes for short periods, SpO2 >94% with O2 on, desats to 84% when he pushes NC out of nares, RR 20s using accessory muscles. 5mg IV metoprolol given now for HR sustaining 120. 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 Confused but cooperative. 2mg IV morphine given for dyspnea, 2gm Mg+ sulfate IV started as ordered.
[2018-11-21] MEDS: METOPROLOL TARTRATE 5 MG/5 ML INJ IV (02:27)
[2018-11-21] MEDS: ALBUTEROL/IPRATROPIUM 3 ML AMPUL INH ×4 (03:34→21:32)
[2018-11-21] MEDS: DIGOXIN 500 MCG/2 ML AMPUL 250 MCG IV (04:15)
[2018-11-21] MEDS: MORPHINE 2 MG/ML INJ IV (05:42)
--- NOTE | 2018-11-21 06:00 | DI.RAD.S_ITS ---
PROCEDURE: XR CHEST 1V INDICATIONS: f/u pneumonia TECHNIQUE: One view of the chest was acquired. COMPARISON: [facility], CR, XR CHEST 1V, 11/20/2018, 7:51. [facility], CR, XR CHEST 1V, 11/19/2018, 5:17. FINDINGS: Surgical changes and devices: Pacemaking device and dual chamber leads appear stable over time. Lungs and pleura: Lungs are abnormal with a mild interstitial prominence, and no focal consolidative pneumonia is currently seen.. No pleural effusions or pneumothorax. Mediastinum: Mediastinal contours appear normal. Heart size is normal. Bones and chest wall: No suspicious bony lesions. Overlying soft tissues appear unremarkable. IMPRESSION: Reduced inspiration, chronic mild interstitial prominence. No focal consolidative opacification of the lung parenchyma is found. No effusion. Pacemaking device and leads stable over time. Dictated by: Uriel Severino M.D. on 11/21/2018 at 8:09 Approved by: Uriel Severino M.D. on 11/21/2018 at 8:10
[2018-11-21 06:07] LABS: Add Manual Diff / Slide Review NO; Basophils Absolute Auto 0 /uL (0-100); Basophils Percent Auto 0.1 % (0-2); Eosinophils Absolute Auto 0 /uL (0-450); Hematocrit 32.3 % (41-53); Hemoglobin 10.4 g/dL (13.5-17.5); Lymphocytes Absolute Auto 900 /uL (1100-4500); Mean Corpuscular HGB Conc 32.2 % (30-36); Mean Corpuscular Hemoglobin 30.3 PG (26-34); Mean Corpuscular Volume 94.2 fL (80-100); Monocytes Absolute Auto 1400 /uL (0-900); Monocytes Percent Auto 7.6 % (3-14); Neutrophils Absolute Auto 15800 /uL (1500-7000); Neutrophils Percent Auto 87.3 % (50-75); Platelet Count 262 X10^3/uL (150-400); Red Blood Cell Count 3.43 X10^6/uL (4.5-5.9); Red Cell Distribution Width 15.4 % (11.6-14.8); White Blood Cell Count 18.1 X10^3/uL (4.5-11.0)
[2018-11-21 06:15] LABS: Alanine Aminotransferase 42 IU/L (21-72); Albumin 3.2 g/dL (3.5-5.0); Albumin Globulin Ratio 1.1 (1.0-2.8); Alkaline Phosphatase 66 U/L (38-126); Aspartate Aminotransferase 38 IU/L (17-59); BUN Creatinine Ratio 28.5 (6-22); Bilirubin Total 0.3 mg/dL (0.2-1.3); Blood Urea Nitrogen 37 mg/dL (9-20); Calcium 7.3 mg/dL (8.4-10.2); Carbon Dioxide 29 mmol/L (22-32); Chloride 105 mmol/L (98-107); Estimated Glomerular Filt Rate 54.3 mL/min (>60); Globulin 2.9 g/dL (1.7-4.1); Glucose 150 mg/dL (80-110); HEMOLYSIS < 15 (0-50); Potassium 4.2 mmol/L (3.4-5.1); Sodium 140 mmol/L (137-145); Total Protein 6.1 g/dL (6.3-8.2)
[2018-11-21 06:26] LABS: Troponin I 0.096 ng/mL (0.01-0.034)
[2018-11-21 06:28] LABS: B Type Natriuretic Peptide 2940 (<100)
--- NOTE | 2018-11-21 09:16 | CM.DPC ---
Addendum entered by Rosalba Smith LPN 11/21/18 11:55: Dr. Starr's progress note for today is reviewed. PT/OT are ordered. MUFFLE OPERATOR Nuria did see pt this morning and he is ok'd for regular textures, thin fluids. She notes aspiration risk related to pt's elevated respiratory rate. Went to room with intent to see pt. Pt is noted to be curled up in bed, eyes closed. DROPLET PRECAUTIONS: in place. Spoke with NUHA Cantu who reports that that pt is now considered Floor Care but will remain for now in the ICU setting. Pt in on high flow oxygen. Kendra/Celio is at the hospital and conferring with the RT staff. Have now left a vm (brief and general as no identifiers are on the contact number: [phone]) with request for Sissy to call the CM/DCPlanner at the [phone] line to discuss d/c issues and options. P: continue to follow as POC unfolds. Addendum entered by Rosalba Smith LPN 11/21/18 09:42: Discussed as planned in Team Rounds and spoke also with Kendra/Celio. Kendra will be checking in today with RT Ariana but Ariana reported to Dr. Starr that at this time pt does not qualify for the Trilogy. Dr. 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 Asked about therapies. Dr. Starr agrees this will be needed but not sure if pt medically stable for same yet. She will be seeing pt today. Original Note: DCP: continued: case received, EMR reviewed and spoke with NUHA Cantu. Alondra confirms that pt remains off ventilator support. Note that RT did ask Dr. Starr about ordering a Trilogy under the [facility] program and she ok'd same. Pt's Sissy has returned to [place] and will be back to hospital later this afternoon. P: discuss case in Team Rounds. See if PT/OT/MUFFLE OPERATOR appropriate. Check in with Keara re the Trilogy status. Pt may well need some snf recovery time and will need to discuss this option with pt and his as POC unfolds. Will check in with Sissy today for intial introductions and DCP team will follow accordingly.
[2018-11-21] MEDS: CEFEPIME 2 GM in SODIUM CHLORIDE 0.9% 100 ML 200 ML IV ×2 (09:17→20:12)
[2018-11-21] MEDS: ENOXAPARIN 100 MG/ML SYRINGE 85 MG SUBCUT (09:18)
[2018-11-21] MEDS: NYSTATIN SUSP 500,000 UNIT/5 ML UDC 500000 UNIT PO ×2 (09:19→20:11)
[2018-11-21] MEDS: FUROSEMIDE 20 MG/2 ML VIAL IV ×2 (09:19→20:12)
[2018-11-21] MEDS: SOTALOL 80 MG TABLET 120 MG PO ×2 (09:23→20:10)
--- NOTE | 2018-11-21 10:41 | P.PN_ITS ---
Subjective Date Patient Seen: 11/21/18 Interval history: Patient is a 73-year-old male who was admitted to the hospital for acute respiratory failure secondary to a left lower lobe pneumonia with known parainfluenza virus. He also has known COPD. The patient developed sepsis. He required pressors, and IV fluids. He has been successfully extubated, taken off pressors, and is sitting up into a chair today. He still has a rapid respiratory rate. He did receive IV fluids and has some element of congestive heart failure as well. He is diuresing nicely. His electrolytes have been replaced. The patient developed atrial fibrillation with a rapid ventricular response rate yesterday. His heart rate improved with sotalol, IV metoprolol, IV digoxin. He will be resumed on his usual medications. The patient will be transferred from the ICU to the medical floor today. PT OT will be consulted. His diet will continue as written. I did discuss with the patient his diagnosis of a lingular mass. His is aware as well. He will follow up with his case hardener as an outpatient for further evaluation. Exam Vital Signs (past 8 hours): - 11/21/18 03:01 11/21/18 03:35 11/21/18 04:00 Temperature Pulse Rate 97 H 83 Respiratory Rate 20 18 Blood Pressure 109/37 L 122/70 Pulse Oximetry 100 98 100 11/21/18 04:15 11/21/18 05:01 11/21/18 06:01 Temperature 98.4 F 98.5 F Pulse Rate 83 86 89 Respiratory Rate 18 19 Blood Pressure 122/70 116/63 132/79 Pulse Oximetry 100 100 11/21/18 07:01 11/21/18 08:00 11/21/18 09:00 Temperature 98.7 F Pulse Rate 93 H 96 H 95 H Respiratory Rate 21 22 24 Blood Pressure 134/86 115/73 120/82 Pulse Oximetry 97 99 97 Fraction of Inspired Oxygen 35 Oxygen Delivery Method Heated High Flow Oxygen Flow Rate 5 Narrative Exam Narrative: Elderly ill-appearing male Lungs: Decreased breath sounds with scattered rhonchi at the bases and end- expiratory wheezing Cardiac exam: Regular rate and rhythm normal S1-S2 Abdomen: Soft and nontender Extremities: No edema Objective Labs Result Diagrams: 11/21/18 05:45 11/21/18 05:45 Labs: Laboratory Results - last 24 hr 11/20/18 11/20/18 11/20/18 10:05 14:15 22:10 WBC RBC Hgb Hct MCV MCH MCHC RDW Plt Count Neut % (Auto) Lymph % (Auto) [place] % (Auto) Eos % (Auto) Baso % (Auto) Neut # (Auto) Lymph # (Auto) [place] # (Auto) Eos # (Auto) Baso # (Auto) ABG pCO2 38.5 Sodium 137 Potassium 4.2 3.5 Chloride 104 Carbon Dioxide 26 BUN 33 H Creatinine 1.00 Estimated GFR > 60.0 BUN/Creatinine Ratio 33.0 H Glucose 141 H Calcium 7.4 L Magnesium 1.3 L Total Bilirubin AST ALT Alkaline Phosphatase Troponin I B-Natriuretic Peptide Total Protein Albumin Globulin Albumin/Globulin Ratio 11/21/18 11/21/18 11/21/18 05:45 05:45 05:45 WBC 18.1 H RBC 3.43 L Hgb 10.4 L Hct 32.3 L MCV 94.2 MCH 30.3 MCHC 32.2 RDW 15.4 H Plt Count 262 Neut % (Auto) 87.3 H Lymph % (Auto) 5.0 L [place] % (Auto) 7.6 Eos % (Auto) 0.0 L Baso % (Auto) 0.1 Neut # (Auto) 55933 H Lymph # (Auto) 900 L [place] # (Auto) 1400 H Eos # (Auto) 0 Baso # (Auto) 0 ABG pCO2 Sodium 140 Potassium 4.2 Chloride 105 Carbon Dioxide 29 BUN 37 H Creatinine 1.30 H Estimated GFR 54.3 L BUN/Creatinine Ratio 28.5 H Glucose 150 H Calcium 7.3 L Magnesium 2.0 Total Bilirubin 0.3 AST 38 ALT 42 Alkaline Phosphatase 66 Troponin I 0.096 H B-Natriuretic Peptide 2940 H Total Protein 6.1 L Albumin 3.2 L Globulin 2.9 Albumin/Globulin Ratio 1.1 Assessment & Plan (1) Septic shock: Problem details: Patient developed septic shock with a sofa score of 3 secondary to respiratory failure, renal failure and acute encephalopathy. He has been successfully tapered off pressors, and also extubated. His septic shock is now resolved Current visit: Yes Status: Acute (2) Acute on chronic systolic heart failure: Problem details: Patient with known acute on chronic heart failure. Given his hypotension he was given IV fluids. These will be held today. Patient remains in acute systolic heart failure. Continue IV Lasix. All IV fluids are being held respiratory status is improving. Will resume his usual metoprolol and sotalol which she was previously taking. Will resume his emtresto as well. Current visit: Yes Status: Acute (3) Acute respiratory failure with hypoxia: Problem details: Patient presented with acute hypoxic respiratory failure, present on admission. He developed progressive shortness of breath failed BiPAP and required intubation. He has been managed with steroids inhalers and antibiotics. Will attempt a weaning trial today. Chest x-ray is unremarkable except for the obscured lingular mass, he also has some evidence of pulmonary edema. Will continue steroid, he denied flow oxygen, nebulized 1st. Current visit: Yes Status: Acute (4) Hyperlipidemia: Problem details: Hyperlipidemia, chronic Current visit: Yes Status: Acute (5) Left lower lobe pneumonia: Problem details: Left lower lobe pneumonia, present on admission, known para influenza virus. Patient with a left lingular mass like opacity. Will follow up to rule out possible lung cancer once the patient is extubated. Patient will continue on cefepime for total of 7 days. Then will discontinue either at discharge or at day 7. Current visit: Yes Status: Acute (6) History of coronary artery disease: Problem details: History of coronary artery disease, status post DC with stenting. Will resume metoprolol once blood pressure has improved Patient developed a 10 beat run of V-tach yesterday and his sotalol was restarted. He has a prolonged QT interval as well. Will continue to monitor closely Patient has mildly elevated troponins. I think this reflects a type 2 myocardi al infarction. Current visit: Yes Status: Acute (7) Persistent atrial fibrillation: Problem details: Chronic persistent atrial fibrillation, present on admission. Patient is on sotalol. Will resume metoprolol once he is extubated and no longer on pressors. Patient developed rapid atrial fibrillation yesterday. After addition of beta marcie, sotalol, digoxin his rate is now controlled. Will continue his usual outpatient medications. Current visit: Yes Status: Acute (8) Chronic renal failure: Problem details: Chronic renal failure, present on admission Patient with stage III chronic renal failure. Creatinine back to 1.3. This is likely close to his baseline. Current visit: Yes Status: Acute (9) Acute exacerbation of chronic obstructive pulmonary disease (COPD): Problem details: Patient with a 60 pack-year history of smoking, presented with COPD present on admission. Patient will continue with nebulizers and steroids. Current visit: Yes Status: Acute (10) Gout: Problem details: Gout, chronic Current visit: Yes Status: Acute Assessment & Plan narrative: Transfer to medical floor.
[2018-11-21] MEDS: RIVAROXABAN 10 MG TABLET 20 MG PO (10:54)
[2018-11-21] MEDS: METOPROLOL ER 25 MG TABLET PO (10:55)
[2018-11-21] MEDS: predniSONE 20 MG TABLET 40 MG PO (10:56)
--- NOTE | 2018-11-21 11:22 | ST.IPCSEOM ---
Care Team Visit Care Team Role Provider Type Kentrell Manuel DO Emergency Provider Physician Specialty: Emergency Medicine Address: [address] [place] [address], [id number] Email: [email or web address] RAMIREZ Freeman Admit Provider Physician Attending Provider Specialty: Internal Medicine Address: [address] [place] [address], [address] Email: Current Diagnoses Sepsis, unspecified organism (11/17/18) Hyperlipidemia, unspecified (11/17/18) Persistent atrial fibrillation (11/17/18) Chronic systolic (congestive) heart failure (11/17/18) Acute on chronic systolic (congestive) heart failure (11/17/18) Hypotension, unspecified (11/17/18) Lobar pneumonia, unspecified organism (11/17/18) Pneumonia, unspecified organism (11/17/18) Chronic obstructive pulmonary disease with (acute) exacerbation (11/17/18) Acute respiratory failure with hypoxia (11/17/18) Acute and chronic respiratory failure with hypoxia (11/17/18) Gout, unspecified (11/17/18) Chronic kidney disease, unspecified (11/17/18) Severe sepsis with septic shock (11/17/18) Personal history of other diseases of the circulatory system (11/17/18) Past Medical History (Last Updated 11/17/18 @ 23:06 by RAMIREZ Freeman) CHF (congestive heart failure) (Acute Medical) CKD (chronic kidney disease) (Acute Medical) COPD (chronic obstructive pulmonary disease) (Acute Medical) Gout (Acute Medical) Left great toe and knees HTN (hypertension) (Acute Medical) Hyperlipidemia (Acute Medical) Paroxysmal A-fib (Acute Medical) 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 He also has known COPD. The patient developed sepsis. He required pressors, and IV fluids. He has been successfully extubated, taken off pressors, and is sitting up into a chair today. He still has a rapid respiratory rate. Subjective Observations Pt up in bedside chair. Labored breathing. Pt on high flow nasal canula. O2 ay 95- 59%, heart rate 84-88 bpm and respiratory rate at 20-25. Evaluation Liquids Trialed Ice Chips Thin Solids Trialed Regular Administration Type Tea Spoon Controlled Cup Sip Self-Feeding Oral Impairment WFL Oral Strategies Upright at 90 degrees Oral Phase Comments Oral phase WFL. Good mastication, bolus formation and control. ROM, strength, coordination WFL. pt safely tolerated regular texture trials without overt s/sx dysphagia. No oral residue observed. Pharyngeal Impairment WFL Pharyngeal Strategies Sitting Upright (90 deg) Pharyngeal Phase Comments Pt demonstrated good hyolaryngeal elevation and forward excursion forward. No wet voicing noted following swallows, no cough/choke relative to swallows observed. Pt observed to have non- productive cough which appeared to be related to his dx rather than swallowing. Minimal change in O2 sats during trials. Increased SOB during trials, which may pose aspiration risk. Pt's voice hoarse. Extubated 24 hours prior to evaluation. Pt remarked that his voice has been hoarse for quite a while. Findings Rehabilitation Potential Excellent Impressions Pt's oral and pharyngeal swallow phases appear to be WFL. Pt does present, however , with elevated breathing while eating. This could present a risk for aspiration as he may aspirate as he tries to breathe. His breathing was labored during the assessment. Recommendations to eat slowly and catch his breath between bites was recommended and explained. Pt indicated he understood and a agreed. Diet Recommendations Liquids Order Thin Diet Order Regular Medication Recommendations As Tolerated Aspiration Precautions Recommended Precautions Upright at 90 Degrees Frequent Rest Periods Treatment Plan Appropriate for Therapy Yes Therapy Recommendations Therapy follow up to monitor tolerance and pt education re: safe swallow strategies. Dysphagia Goals Pt will safely tolerate the least restrictive diet without s/sx aspiration. Pt education regarding safe swallow strategies to reduce aspiration risk secondary to increased respiration rate.
[2018-11-21] MEDS: BUDESONIDE 60 PUFF/DEVICE INHALER INH ×2 (12:48→20:09)
--- NOTE | 2018-11-21 14:26 | PT.IIE ---
Current Diagnoses Sepsis, unspecified organism (11/17/18) Hyperlipidemia, unspecified (11/17/18) Persistent atrial fibrillation (11/17/18) Chronic systolic (congestive) heart failure (11/17/18) Acute on chronic systolic (congestive) heart failure (11/17/18) Hypotension, unspecified (11/17/18) Lobar pneumonia, unspecified organism (11/17/18) Pneumonia, unspecified organism (11/17/18) Chronic obstructive pulmonary disease with (acute) exacerbation (11/17/18) Acute respiratory failure with hypoxia (11/17/18) Acute and chronic respiratory failure with hypoxia (11/17/18) Gout, unspecified (11/17/18) Chronic kidney disease, unspecified (11/17/18) Severe sepsis with septic shock (11/17/18) Personal history of other diseases of the circulatory system (11/17/18) Surgical History (Last Reviewed 11/17/18 @ 23:03 by RAMIREZ Freeman) H/O heart artery stent (Acute) History of automatic internal cardiac defibrillator (AICD) (Acute) History of knee surgery (Acute) Medical History (Last Updated 11/17/18 @ 23:06 by RAMIREZ Freeman) CHF (congestive heart failure) (Acute) CKD (chronic kidney disease) (Acute) COPD (chronic obstructive pulmonary disease) (Acute) Gout (Acute) HTN (hypertension) (Acute) Hyperlipidemia (Acute) Paroxysmal A-fib (Acute) Physical Therapy Inpatient Evaluation/Re-Eval M1 PT/OT-IP Prior Functional Status Start: 11/21/18 17:23 Freq: NEEDED Status: Active Protocol: Document 11/21/18 14:26 AB (Rec: 11/21/18 17:38 AB [id number]) Medical Review Prior Functional Status Medical History Reviewed Yes Communication able to make needs known; pt is [place] Mobility and Gait pt stated that he is independent with all mobilities and ambulation without AD but occasionally uses a SPC for outdoor ambulation for ~ 1 year for steadiness Social History Household Members spouse Living Arrangements House Number of Floors (Floors) One Floor Number of Stairs To Enter/Railing? 1 step to enter Home Environment Standard Height Toilet High Toilet Walk in Shower Home Equipment Straight Cane Shower Seat with Backrest M2 PT-IP Current Condition Start: 11/21/18 17:23 Freq: NEEDED Status: Active Protocol: Document 11/21/18 14:26 AB (Rec: 11/21/18 17:38 AB [id number]) Physical Therapy Current Condition Current Condition Evaluation Date 11/21/18 Treatment Diagnosis septic shock; CHF; respiratory failure; difficulty in walking Onset Date 11/17/18 Precautions Other Precautions droplet precaution O2 sat Weight Bearing Status Weight Bearing Status Weight Bear as Tolerated M3 PT-IP Subjective Start: 11/21/18 17:23 Freq: NEEDED Status: Active Protocol: Document 11/21/18 14:26 AB (Rec: 11/21/18 17:38 AB [id number]) Subjective Physical Therapy Visit Type Type Initial Evaluation Visit Start Time 14:26 Visit Stop Time 14:48 Total Visit Minutes 22 Number of SERVICE CLERK Visits 0 Physical Therapy Visit Comments Patient Comments pt agreeable to do PT M4 PT-IP Mobility and Gait Start: 11/21/18 17:23 Freq: NEEDED Status: Active Protocol: Document 11/21/18 14:26 AB (Rec: 11/21/18 17:38 AB [id number]) PT-Bed Mobility Assessment Supine to Sit Supine to Sit Standby Assistance Sit to Supine Sit to Supine Standby Assistance Scooting Scooting to Edge of Bed Standby Assistance PT-Transfer Assessment Sit to and From Stand Sit to and from Stand Contact Guard Assistance 1 Person Assistance Use of Upper Extremities Equipment Transfer Assistive Device Gait Belt Front Wheeled Walker Orthotic/Prosthetic Devices or Brace: No Transfers Transfer Destination Bed Chair Transfer Technique Stand Pivot Transfer Ability Level of Assist Contact Guard Assistance 1 Person Assistance Use of Upper Extremities Gait Assessment Gait Gait Assistance Required: Contact Guard Assist Distance (Feet) 5 Able to Maintain Weight Bearing Status Yes During Gait Assistive Devices Assistive Device Gait Belt Front Wheeled Walker Orthotic/Prosthetic Devices or Brace: No Gait Deviations General Gait Pattern Decreased Stride Length Decreased Feet Clearance Factors Limiting Gait Function Factors Limiting Gait Function Decreased Activity Tolerance Decreased Strength Poor Balance Comments Gait Comments ambulation is limited due to O2 attachment on wall with high flow n.c. pt completed ambulation using FWW 5 ft x 2 forward/backward CGA; able to complete marching in place x 10 reps CGA. O2 sat maintained at 95-97% PT-Balance Assessment Sitting Balance and Reactions Static Sitting Balance Ability Good Dynamic Sitting Balance Ability Good Standing Balance and Reactions Static Standing Balance Ability Fair Dynamic Standing Balance Ability Fair Device Used FWW M5 PT-IP Objective Assessments Start: 11/21/18 17:23 Freq: NEEDED Status: Active Protocol: Document 11/21/18 14:26 AB (Rec: 11/21/18 17:38 AB [id number]) Orientation Orientation/Cognition Level of Alertness Alert Orientation Name Place Situation Language Function Ability Hard of Hearing Safety Awareness Decreased Safety Awareness Gross Range of Motion Lower Extremity ROM Assessment Within Functional Limits Strength Lower Extremity Strength Assessment Bilaterally Impaired Comments Strength Comments RLE 3+/5 LLE 4-/5 Coordination Assessment Gross Coordination Gross Coordination WNL Sensation Assessment Sensation Gross Sensation WNL Muscle Tone Muscle Tone WNL Yes M6 PT-IP Treatment Start: 11/21/18 17:23 Freq: NEEDED Status: Active Protocol: Document 11/21/18 14:26 AB (Rec: 11/21/18 17:38 AB [id number]) Physical Therapy Treatment Education Education Provided Safety M7 PT-IP Assessment and Plan Start: 11/21/18 17:23 Freq: NEEDED Status: Active Protocol: Document 11/21/18 14:26 AB (Rec: 11/21/18 17:38 AB [id number]) PT Summary Assessment and Plan Potential Rehabilitation Potential Good Status of Condition at Evaluation Evolving Summary Impairments Pain ROM Strength Balance Bed Mobility Transfers Gait Activity Tolerance Assessment Summary pt requiring CGA with mobility but presents with decrease activity tolerance and currently requiring FWW for mobility. d/c plan depending on progress but pt may benefit from SNF rehab to improve overall strength, endurance and functional independence. will continue to assess. Goals Bed Mobility Goal Independent Transfer Goal Independent Front Wheeled Walker Gait Goal Independent Front Wheel Walker Gait Distance 150 Other Goals to improve ambualtion using SPC SBA ~ 200 ft up/down 1 step using FWW SBA Days to Meet Goals 10 Frequency of Treatment Frequency Of Treatment Once a Day Treatment Plan Physical Therapy Treatment Plan Bed Mobility Training Transfer Training Gait Training Therapeutic Exercise Balance Retraining Discharge Planning Hot or Cold Pack Neuromuscular Re-ed Coordination Retraining Manual Therapy Other Recommendations and Next Treatment ambulation Focus Recommendations To Nursing Amount of Assist Needed 1 Person Assist Discharge Recommendations PT Discharge Recommendations Home with 24/7 Assist Home Health SNF Rehab Outpatient PT Other Discharge Recommendations d/c plan depending on progress : SNF vs home with 24/7 and home health/outpt PT/ cardiopulmo rehab Equipment Needed for Home Before FWW if not safe with SPC Discharge
--- NOTE | 2018-11-21 14:46 | OT.IP.TRT ---
Current Diagnoses Sepsis, unspecified organism (11/17/18) Hyperlipidemia, unspecified (11/17/18) Persistent atrial fibrillation (11/17/18) Chronic systolic (congestive) heart failure (11/17/18) Acute on chronic systolic (congestive) heart failure (11/17/18) Hypotension, unspecified (11/17/18) Lobar pneumonia, unspecified organism (11/17/18) Pneumonia, unspecified organism (11/17/18) Chronic obstructive pulmonary disease with (acute) exacerbation (11/17/18) Acute respiratory failure with hypoxia (11/17/18) Acute and chronic respiratory failure with hypoxia (11/17/18) Gout, unspecified (11/17/18) Chronic kidney disease, unspecified (11/17/18) Severe sepsis with septic shock (11/17/18) Personal history of other diseases of the circulatory system (11/17/18) Occupational Therapy Treatment Note M3 OT- IP Subjective and Pain Start: 11/21/18 14:45 Freq: Status: Active Protocol: Document 11/21/18 14:45 [facility] (Rec: 11/21/18 14:45 [facility] [id number]) OT- Subjective Occupational Therapy Visit Type Type Patient Refusal Notes Pt states too tired for OT eval , pt's able to give prior level of care and home set-up. No charge. To attempt OT eval tomorrow.
--- NOTE | 2018-11-21 16:29 | PC.NURSE ---
Addendum entered by Haley Freeman R.N. 11/21/18 20:24: 2020 - Pt mentation clearing somewhat this evening, continues to be intermittently forgetful. Reorients easily. Pt up to the chair twice this shift, also ambulating to the bathroom, SBA. Continues to report tight feeling with respiratory effort. Discussed activity and SOB. Urinal provided. Call light in reach. Chair alarm on. Original Note: 1615 - Pt awake, restless in bed. Request to sit in a chair. SBA, holding on to furniture. SOB with activity. Heated high flow FIO2 35%, sats 97%. Reports use of cane at home. Pt disoriented, reoriented to place and situation. Reinforced call light use. Chair alarm on.
[2018-11-21] MEDS: ROSUVASTATIN 10 MG TABLET 20 MG PO (20:11)
[2018-11-22] VITALS (17 sets, daily range): BP systolic 117–137; BP diastolic 65–74; PULSE 74–80; RESP 16–22; TEMP 36.4–37.2; O2SAT 96–100
[2018-11-22] MEDS: ALBUTEROL 2.5 MG/3 ML NEB (ADULT) INH ×2 (00:36→05:48)
[2018-11-22] MEDS: ALBUTEROL/IPRATROPIUM 3 ML AMPUL INH ×6 (03:07→21:58)
[2018-11-22 05:47] LABS: Add Manual Diff / Slide Review NO; Basophils Absolute Auto 0 /uL (0-100); Basophils Percent Auto 0.2 % (0-2); Eosinophils Absolute Auto 0 /uL (0-450); Eosinophils Percent Auto 0.1 % (2-4); Hematocrit 28.2 % (41-53); Hemoglobin 9.2 g/dL (13.5-17.5); Lymphocytes Absolute Auto 800 /uL (1100-4500); Lymphocytes Percent Auto 7.2 % (25-40); Mean Corpuscular HGB Conc 32.6 % (30-36); Mean Corpuscular Hemoglobin 30.4 PG (26-34); Mean Corpuscular Volume 93.3 fL (80-100); Monocytes Absolute Auto 1100 /uL (0-900); Monocytes Percent Auto 9.1 % (3-14); Neutrophils Absolute Auto 9700 /uL (1500-7000); Neutrophils Percent Auto 83.4 % (50-75); Platelet Count 202 X10^3/uL (150-400); Red Blood Cell Count 3.02 X10^6/uL (4.5-5.9); Red Cell Distribution Width 14.8 % (11.6-14.8); White Blood Cell Count 11.6 X10^3/uL (4.5-11.0)
[2018-11-22 05:57] LABS: Blood Urea Nitrogen 38 mg/dL (9-20); Calcium 7.1 mg/dL (8.4-10.2); Carbon Dioxide 33 mmol/L (22-32); Chloride 104 mmol/L (98-107); Estimated Glomerular Filt Rate > 60.0 mL/min (>60); Glucose 135 mg/dL (80-110); HEMOLYSIS 25 (0-50); Magnesium 1.7 mg/dL (1.6-2.3); Potassium 3.5 mmol/L (3.4-5.1); Sodium 140 mmol/L (137-145)
[2018-11-22] MEDS: BUDESONIDE 60 PUFF/DEVICE INHALER INH ×2 (08:00→21:58)
[2018-11-22] MEDS: CEFEPIME 2 GM in SODIUM CHLORIDE 0.9% 100 ML 200 ML IV ×2 (08:22→20:43)
[2018-11-22] MEDS: METOPROLOL ER 25 MG TABLET PO (08:23)
[2018-11-22] MEDS: NYSTATIN SUSP 500,000 UNIT/5 ML UDC 500000 UNIT PO ×2 (08:23→20:42)
[2018-11-22] MEDS: predniSONE 20 MG TABLET 40 MG PO (08:23)
[2018-11-22] MEDS: RIVAROXABAN 10 MG TABLET 20 MG PO (08:23)
[2018-11-22] MEDS: SOTALOL 80 MG TABLET 120 MG PO ×2 (08:24→20:41)
[2018-11-22] MEDS: FUROSEMIDE 20 MG/2 ML VIAL IV ×2 (08:24→20:42)
--- NOTE | 2018-11-22 09:07 | SLP.IPNOTE ---
Pt seen briefly with present and Dr. 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 The pt had already consumed his breakfast. Reported continued SOB with oral intake requiring slow rate and extensive chewing. Discussed aspiration risks/precautions. Will f/u again at lunch for dysphagia tx with intake.
--- NOTE | 2018-11-22 09:14 | P.PN_ITS ---
Subjective Date Patient Seen: 11/22/18 Interval history: The patient is a 73-year-old male with a history of COPD, chronic systolic heart failure who was admitted to the hospital 5 days ago with acute respiratory failure and sepsis. Patient subsequently developed shock with persistent hypotension. He required IV fluids and pressors. He was intubated. He was successfully extubated 2 days ago. Today the patient is more awake and alert. He does continue to require high-flow oxygen. He has a cough which is nonproductive. He reports some back pain from lying in bed last evening. Exam Vital Signs (past 8 hours): - 11/22/18 03:08 11/22/18 05:30 11/22/18 05:48 Temperature 98.8 F Pulse Rate 78 Respiratory Rate 20 Blood Pressure 117/72 Pulse Oximetry 99 100 99 11/22/18 07:50 11/22/18 08:07 Temperature 98.2 F Pulse Rate 78 74 Respiratory Rate 16 20 Blood Pressure 129/71 Pulse Oximetry 98 99 Fraction of Inspired Oxygen 0.32 Oxygen Delivery Method High Flow Nasal Cannula Oxygen Flow Rate 55 Narrative Exam Narrative: Ill appearing male Lungs: Decreased breath sounds with basilar crackles bilaterally Cardiac exam: Regular rate and rhythm normal S1-S2 with 2/6 systolic ejection murmur Abdomen: Soft and nontender Extremities: No edema Objective Labs Result Diagrams: 11/22/18 05:30 11/22/18 05:30 Labs: Laboratory Results - last 24 hr 11/22/18 11/22/18 05:30 05:30 WBC 11.6 H RBC 3.02 L Hgb 9.2 L Hct 28.2 L MCV 93.3 MCH 30.4 MCHC 32.6 RDW 14.8 Plt Count 202 Neut % (Auto) 83.4 H Lymph % (Auto) 7.2 L [place] % (Auto) 9.1 Eos % (Auto) 0.1 L Baso % (Auto) 0.2 Neut # (Auto) 9700 H Lymph # (Auto) 800 L [place] # (Auto) 1100 H Eos # (Auto) 0 Baso # (Auto) 0 Sodium 140 Potassium 3.5 Chloride 104 Carbon Dioxide 33 H BUN 38 H Creatinine 1.00 Estimated GFR > 60.0 BUN/Creatinine Ratio 38.0 H Glucose 135 H Calcium 7.1 L Magnesium 1.7 Assessment & Plan (1) Acute respiratory failure with hypoxia: Problem details: Patient presented with acute hypoxic respiratory failure, present on admission. He developed progressive shortness of breath failed BiPAP and required intubation. He has been managed with steroids inhalers and antibiotics. Will attempt a weaning trial today. Chest x-ray is unremarkable except for the obscured lingular mass, he also has some evidence of pulmonary edema. Will continue steroid, he denied flow oxygen, nebulized 1st. Patient successfully extubated. He is on high-flow oxygen. Will taper the high-flow oxygen off today. Current visit: Yes Status: Acute (2) Acute on chronic systolic heart failure: Problem details: Patient with known acute on chronic heart failure. Given his hypotension he was given IV fluids. These will be held today. Patient remains in acute systolic heart failure. Continue IV Lasix. All IV fluids are being held respiratory status is improving. Will resume his usual metoprolol and sotalol which she was previously taking. Will resume his emtresto as well. The patient will continue on IV Lasix twice daily. Will add interest 0 tomorrow after diuresis has been completed. Current visit: Yes Status: Acute (3) Septic shock: Problem details: Patient developed septic shock with a sofa score of 3 secondary to respiratory failure, renal failure and acute encephalopathy. He has been successfully tapered off pressors, and also extubated. His septic shock is now resolved Current visit: Yes Status: Acute (4) Left lower lobe pneumonia: Problem details: Left lower lobe pneumonia, present on admission, known para influenza virus. Patient with a left lingular mass like opacity. Will follow up to rule out possible lung cancer once the patient is extubated. Patient will continue on cefepime for total of 7 days. Then will discontinue either at discharge or at day 7. This is day 5 of antibiotics. Two more days of antibiotics and then discontinue. Current visit: Yes Status: Acute (5) Persistent atrial fibrillation: Problem details: Chronic persistent atrial fibrillation, present on admission. Patient is on sotalol. Will resume metoprolol once he is extubated and no longer on pressors. Patient developed rapid atrial fibrillation yesterday. After addition of beta marcie, sotalol, digoxin his rate is now controlled. Will continue his usual outpatient medications. Current visit: Yes Status: Acute (6) History of coronary artery disease: Problem details: History of coronary artery disease, status post [place] with stenting. Will resume metoprolol once blood pressure has improved Patient developed a 10 beat run of V-tach yesterday and his sotalol was restarted. He has a prolonged QT interval as well. Will continue to monitor closely Patient has mildly elevated troponins. I think this reflects a type 2 myocardial infarction. Current visit: Yes Status: Acute (7) Hyperlipidemia: Problem details: Hyperlipidemia, chronic Current visit: Yes Status: Acute (8) Gout: Problem details: Gout, chronic Current visit: Yes Status: Acute (9) Chronic renal failure: Problem details: Chronic renal failure, present on admission Patient with stage III chronic renal failure. Creatinine back to 1.3. This is likely close to his baseline. Creatinine has improved Current visit: Yes Status: Acute (10) Acute exacerbation of chronic obstructive pulmonary disease (COPD): Problem details: Patient with a 60 pack-year history of smoking, presented with COPD present on admission. Patient will continue with nebulizers and steroids. Current visit: Yes Status: Acute
[2018-11-22] MEDS: POTASSIUM CHLORIDE 20 MEQ/15 ML UDC 40 MEQ PO (09:26)
--- NOTE | 2018-11-22 10:02 | CM.DPC ---
DCP Cont: Met with patient in his room, and his . Introduced self and role. Reached out to them for any concerns about discharge, or resources that may be needed. Patient has not yet worked with physical therapy team. Respiratory therapy is continuing to work with patient as well, since he is still on hi flow oxygen. He may be following with finger cobbler in [place]. Placed this caser in's extension on white board in case spouse has any questions or concerns regarding discharge. Discussed patient during team rounds, and he could potentially be discharged home tomorrow if medically stable, and depending on how he does with physical therapy. P: DCP to continue to follow closely and be available for any questions or concerns that patient or spouse may have upon discharge. Monse Powell RN/Outsole Splicer
--- NOTE | 2018-11-22 14:04 | OT.IP.EVAL ---
Current Diagnoses Sepsis, unspecified organism (11/17/18) Hyperlipidemia, unspecified (11/17/18) Persistent atrial fibrillation (11/17/18) Chronic systolic (congestive) heart failure (11/17/18) Acute on chronic systolic (congestive) heart failure (11/17/18) Hypotension, unspecified (11/17/18) Lobar pneumonia, unspecified organism (11/17/18) Pneumonia, unspecified organism (11/17/18) Chronic obstructive pulmonary disease with (acute) exacerbation (11/17/18) Acute respiratory failure with hypoxia (11/17/18) Acute and chronic respiratory failure with hypoxia (11/17/18) Gout, unspecified (11/17/18) Chronic kidney disease, unspecified (11/17/18) Severe sepsis with septic shock (11/17/18) Personal history of other diseases of the circulatory system (11/17/18) Past Medical History (Last Updated 11/17/18 @ 23:06 by RAMIREZ Freeman) CHF (congestive heart failure) (Acute) CKD (chronic kidney disease) (Acute) COPD (chronic obstructive pulmonary disease) (Acute) Gout (Acute) HTN (hypertension) (Acute) Hyperlipidemia (Acute) Paroxysmal A-fib (Acute) Surgical History (Last Reviewed 11/17/18 @ 23:03 by RAMIREZ Freeman) H/O heart artery stent (Acute) History of automatic internal cardiac defibrillator (AICD) (Acute) History of knee surgery (Acute) Occupational Therapy Inpatient Evaluation/Re-Eval M1 PT/OT-IP Prior Functional Status Start: 11/21/18 14:45 Freq: NEEDED Status: Active Protocol: Document 11/22/18 14:04 TONYA (Rec: 11/22/18 14:33 TONYA [id number]) Medical Review Prior Functional Status Medical History Reviewed Yes Communication WNL; pt is COCOPAH w/B hearing aids Mobility and Gait Pt stated that he is independent with ambulation without AD but occasionally uses a SPC for outdoor ambulation for ~ 1 year for steadiness. reports pt has decreased endurance for ambulation. He will walk through part of grocery store, then sits to rest at coffee stand. Activities of Daily Living and IADL's Pt was independent with all self care. does all IADLS and manages finances. Pt drives when feeling well. He manages his own medications. Prior Functional Level (Other details) Pt visiting [place] from [place], [place]. He has large power boat and able to access it without cane. There are stairs within boat with handrails. Pt drove boat here from [place] just prior to admit. Social History Household Members spouse Living Arrangements House Number of Floors (Floors) One Floor Number of Stairs To Enter/Railing? 1 step to enter Home Environment Standard Height Toilet High Toilet Walk in Shower Home Equipment Straight Cane Employment Status Retired Additional Social History Comment Supportive, capable can provide 24 hr assist at discharge. M2 OT-IP Current Condition Start: 11/21/18 14:45 Freq: Status: Active Protocol: Document 11/22/18 14:04 TONYA (Rec: 11/22/18 14:33 [email or web address] [id number]) Occupational Therapy Current Condition Current Condition Evaluation Date 11/22/18 Treatment Diagnosis decr'd act arlen,ADLS, mobility w/DX: acute CHF, PNA requiring intubation Diagnosis Onset Date 11/17/18 Post Operative Precautions Other Precautions droplet precautions, heated high flow O2 flow rate 40, FIO2 .32, watch O2 sats M3 OT- IP Subjective and Pain Start: 11/21/18 14:45 Freq: Status: Active Protocol: Document 11/22/18 14:04 TONYA (Rec: 11/22/18 14:33 [facility] [id number]) OT- Subjective Occupational Therapy Visit Type Type Initial Evaluation Visit Start Time 13:28 Visit Stop Time 14:04 Total Visit Minutes 36 Notes here for education this session. Occupational Therapy Visit Comments Patient Comments I would love a shower. Patient/Caregiver Goals to get off O2 and go home OT Pain Assessment Pain When Pain Assessed At Rest Pain Present Pain Present Denied Pain M4 OT- IP ADL's Start: 11/21/18 14:45 Freq: Status: Active Protocol: Document 11/22/18 14:04 TONYA (Rec: 11/22/18 14:33 [facility] [id number]) OT SOL-Eduv-Amvyrvp General Evaluation Self-Feeding Ability Independent OT ADL-Grooming General Evaluation Grooming Ability Standby Assistance Areas Needing Assistance Combing/Brushing Hair Face Washing Comments OT Grooming Comments seated in chair after set up; assist with O2 tubing only OT ADL-Oral Care General Eval Oral Care Ability Standby Assistance OT ADL-Dressing General Eval Upper Body Dressing Ability Independent Lower Body Dressing Ability Independent Areas Needing Assistance Underpants/Brief Pants/Shorts Socks OT ADL-Toileting Comments OT Toileting Comments did not occur this session OT ADL-Bathing Bathing Type Bathing Type Sponge Bath General Evaluation Bathing Ability Minimal Assistance Areas Needing Assistance Wash/Dry Back Comments OT Bathing Comments pt set up with sponge bath with assisting with back only M5 OT- IP IADL's Start: 11/21/18 14:45 Freq: Status: Active Protocol: Document 11/22/18 14:04 PJM (Rec: 11/22/18 14:33 [facility] [id number]) OT-Instrumental Activities of Daily Living Deficits IADL Deficits Identified Deficits Home Safety Awareness Awareness of Need for Assistance at Home Good Awareness Medication Management Medication Management No Deficits Identified Money Management Money Management Caregiver Provides Assistance Money Management Comments manages finances at home Meal Preparation Meal Preparation Caregiver Provides Assist Meal Preparation Comments does all meal prep at home Furnace Door Tender Furnace Door Tender Caregiver Provides Assist Furnace Door Tender Comments does all envelope machine adjuster , pt goes with her to grocery store Driving Driving Caregiver Provides Assist Driving Comments to assist until pt able M6 OT- IP Functional Cognition Start: 11/21/18 14:45 Freq: Status: Active Protocol: Document 11/22/18 14:04 PJM (Rec: 11/22/18 14:33 [facility] [id number]) Cognitive Factors Limiting Selfcare Function Cognitive Ability Level of Alertness Alert Attention Span Ability Capable of Focused Attention Capable of Sustained Attention Ability to Follow Commands Able to Follow One Step Commands Memory Description No Deficits Noted Safety Awareness Underestimates Need for Assistance Cognitive Comments Cognitive Assessment Comments Pt alert and oriented. Some decreased insight into need for assistance and current medical situation noted. Pt taking O2 off briefly for face washing and wanting to leave it off longer than necessary. Not aware of current high O2 needs. OT- Vision and Hearing OT- Hearing Assessment OT- Hearing Assessment Hearing Impaired Right Ear Impaired Left Ear Impaired Use of Hearing Aids OT- Vision Assessment Visual Acuity Glasses For Reading Vision Assessment Comments S/P B cataract sx, reading glasses only M7 OT- IP Mobility and Balance Start: 11/21/18 14:45 Freq: Status: Active Protocol: Document 11/22/18 14:04 PJM (Rec: 11/22/18 14:33 [facility] [id number]) OT-Transfer Assessment Sit to and From Stand Sit to and from Stand Standby Assistance Comments Mobility Comments pt stood to wash icnthia area and to get pants over hips with no loss of balance noted OT- Balance Assessment Sitting Balance and Reactions Static Sitting Balance Ability Good Dynamic Sitting Balance Ability Good Standing Balance and Reactions Static Standing Balance Ability Good Dynamic Standing Balance Ability Good Comments Other Balance Tests/Deviations/Treatment during lower body clothing : management M8 OT- IP Objective Assessments Start: 11/21/18 14:45 Freq: Status: Active Protocol: Document 11/22/18 14:04 PJ (Rec: 11/22/18 14:33 PJ [id number]) OT Gross Range of Motion Upper Extremity Range of Motion Assessment Within Functional Limits OT Strength Upper Extremity Strength Assessment Within Functional Limits Hand 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 Metal 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 Worker Strength Hand Dominance Right OT- Coordination Assessment Comments Coordination Comments BUE WFL OT-Muscle Tone Assessment Muscle Tone WNL Yes OT Sensation Assessment Comments Summary Comments BUE WNL per pt Edema Edema Absent M9 OT- IP Assessment and Plan Start: 11/21/18 14:45 Freq: Status: Active Protocol: Document 11/22/18 14:04 PJ (Rec: 11/22/18 14:33 [facility] [id number]) OT Summary Assessment and Plan Potential Rehabilitation Potential Good Analytic Complexity at Evaluation Low Summary OT Impairments Functional Mobility Toileting Bathing Toilet Transfers Shower Transfers Assessment Summary Low complexity OT assessment completed on this 73 yr old male admitted with acute CHF, pneumonia w/sepsis and acute respiratory failure requiring intubation. Pt has new lung mass found on chest CT that will require further work up as out pt. Pt extubated 2 days ago and now on heated high flow O2. Pt's primary performance deficit is decreased activity tolerance. Began education with pt/ re: energy conservation/pacing and recommend pt have shower seat at home. Provided resource information. Pt is visiting here from [place] and plans to d/c home with 24 hr assist from supportive capable when medically stable and clears P.T. Pt will benefit from OT services here to increase activity tolerance and knowledge of energy conservation and pacing. Goals Grooming Goal Independent Toileting Goal Independent Bathing Goal Standby Assistance Hand Held Shower Sprayer Long Handled Sponge or [place] Toilet Transfer Goal Independent ADA High Toilet Shower Transfer Goal Standby Assistance Walk-in Shower Shower Chair Patient/Caregiver Education Goal Demonstrate Energy Conservation and Pacing Caregiver Independent Assisting Patient OT-Other Goals Pt's O2 sats to be WNL during all self care tasks with or without supplemental O2 pending medical progress. Days to Meet Goals 3 Frequency of Treatment Frequency Of Treatment Once a Day Treatment Plan OT Treatment Plan ADL Training Functional Mobility Patient/Family Education Discharge Planning Discharge Recommendations OT Discharge Recommendations Home with 24/7 Assist Home Equipment Needs shower seat
--- NOTE | 2018-11-22 14:15 | PT.IPTN ---
Current Diagnoses Sepsis, unspecified organism (11/17/18) Hyperlipidemia, unspecified (11/17/18) Persistent atrial fibrillation (11/17/18) Chronic systolic (congestive) heart failure (11/17/18) Acute on chronic systolic (congestive) heart failure (11/17/18) Hypotension, unspecified (11/17/18) Lobar pneumonia, unspecified organism (11/17/18) Pneumonia, unspecified organism (11/17/18) Chronic obstructive pulmonary disease with (acute) exacerbation (11/17/18) Acute respiratory failure with hypoxia (11/17/18) Acute and chronic respiratory failure with hypoxia (11/17/18) Gout, unspecified (11/17/18) Chronic kidney disease, unspecified (11/17/18) Severe sepsis with septic shock (11/17/18) Personal history of other diseases of the circulatory system (11/17/18) Physical Therapy Treatment Note M2 PT-IP Current Condition Start: 11/21/18 17:23 Freq: NEEDED Status: Active Protocol: Document 11/21/18 14:26 AB (Rec: 11/21/18 17:38 AB [id number]) Physical Therapy Current Condition Current Condition Evaluation Date 11/21/18 Treatment Diagnosis septic shock; CHF; respiratory failure; difficulty in walking Onset Date 11/17/18 Precautions Other Precautions droplet precaution O2 sat Weight Bearing Status Weight Bearing Status Weight Bear as Tolerated M3 PT-IP Subjective Start: 11/21/18 17:23 Freq: NEEDED Status: Active Protocol: Document 11/22/18 14:15 GGD (Rec: 11/22/18 15:11 GGBrad [id number]) Subjective Physical Therapy Visit Type Type Treatment Note Visit Start Time 14:15 Visit Stop Time 14:40 Total Visit Minutes 25 Number of OPERATIONS RESEARCH DIRECTOR Visits 1 Physical Therapy Visit Comments Patient Comments Pt willing to work with therapy. M4 PT-IP Mobility and Gait Start: 11/21/18 17:23 Freq: NEEDED Status: Active Protocol: Document 11/22/18 14:15 GGD (Rec: 11/22/18 15:11 GGBrad [id number]) PT-Transfer Assessment Sit to and From Stand Sit to and from Stand Standby Assistance Use of Upper Extremities Equipment Transfer Assistive Device Gait Belt Front Wheeled Walker Orthotic/Prosthetic Devices or Brace: No Transfers Transfer Destination Chair Transfer Ability Level of Assist Contact Guard Assistance 1 Person Assistance Use of Upper Extremities Gait Assessment Gait Gait Assistance Required: Contact Guard Assist Distance (Feet) 160 Assistive Devices Assistive Device Gait Belt Front Wheeled Walker Gait Deviations General Gait Pattern Decreased Stride Length Decreased Feet Clearance Factors Limiting Gait Function Factors Limiting Gait Function Decreased Activity Tolerance Decreased Strength Poor Balance Comments Gait Comments O2 at rest on 3L 99%, after 50 feet of gait on 3L 99%, after 100 feet of gait on 2 L 94% M5 PT-IP Objective Assessments Start: 11/21/18 17:23 Freq: NEEDED Status: Active Protocol: Document 11/21/18 14:26 AB (Rec: 11/21/18 17:38 AB [id number]) Orientation Orientation/Cognition Level of Alertness Alert Orientation Name Place Situation Language Function Ability Hard of Hearing Safety Awareness Decreased Safety Awareness Gross Range of Motion Lower Extremity ROM Assessment Within Functional Limits Strength Lower Extremity Strength Assessment Bilaterally Impaired Comments Strength Comments RLE 3+/5 LLE 4-/5 Coordination Assessment Gross Coordination Gross Coordination WNL Sensation Assessment Sensation Gross Sensation WNL Muscle Tone Muscle Tone WNL Yes M6 PT-IP Treatment Start: 11/21/18 17:23 Freq: NEEDED Status: Active Protocol: Document 11/21/18 14:26 AB (Rec: 11/21/18 17:38 AB [id number]) Physical Therapy Treatment Education Education Provided Safety M7 PT-IP Assessment and Plan Start: 11/21/18 17:23 Freq: NEEDED Status: Active Protocol: Document 11/22/18 14:15 GGD (Rec: 11/22/18 15:11 GGD [id number]) PT Summary Assessment and Plan Summary Assessment Summary Pt is improving with mobility. He had heavy use of UE on FWW and would benefit from use of FWW at home. He was able to progress gait distance with stable O2 sats. He will need stair training before D/C home . Frequency of Treatment Frequency Of Treatment Once a Day Treatment Plan Physical Therapy Treatment Plan Bed Mobility Training Transfer Training Gait Training Therapeutic Exercise Balance Retraining Discharge Planning Hot or Cold Pack Neuromuscular Re-ed Coordination Retraining Manual Therapy Recommendations To Nursing Amount of Assist Needed 1 Person Assist Discharge Recommendations PT Discharge Recommendations Home with Assistance Home Health Outpatient PT Other Discharge Recommendations s home with 17/01 and home health/outpt PT/cardiopulmo rehab
--- NOTE | 2018-11-22 15:03 | CM.DPC ---
Addendum entered by Monse Powell R.N. 11/22/18 15:39: Noted latest physical therapy note mentioning possible home health upon discharge. Confirmed with Cathryn at [facility] that they do service [facility], but unknown PCP at this time. Will need to follow up tomorrow with and patient if he has a primary care provider, and if they would like to have home health. Original Note: DCP Cont: Spoke to Kendra at [facility]. She had pulmonary function testing from approximately 2 years ago, from patient's area cleaner, Dr. Escobar, in [place]. She stated that according to the readings, he should qualify for in home trilogy. She has the form that is to be signed by Dr. Starr, hospitalist. Stated that if patient is to discharge tomorrow, to let her know. She will also be attempting to speak to Dr. Starr today as well. P: DCP to continue to follow closely. Patient could potentially discharge home tomorrow. Patient at this time is requiring oxygen. Will consult with respiratory therapy as well. Monse Powell RN/Lay Midwife
--- NOTE | 2018-11-22 16:18 | ST.IPDYTX ---
Care Team Visit Care Team Role Provider Type Kentrell Manuel DO Emergency Provider Physician Specialty: Emergency Medicine Address: [address] [place] [address], [id number] Email: [email or web address] RAMIREZ Freeman Admit Provider Physician Attending Provider Specialty: Internal Medicine Address: [address] [place] [address], [id number] Email: SPOT FACER Dysphagia Treatment SPOT FACER Dysphagia Treatment Start: 11/21/18 10:45 Freq: Status: Active Protocol: Document 11/22/18 16:10 LNK (Rec: 11/22/18 16:18 LNK [id number]) Dysphagia Treatment Session Time Visit Start Time 12:00 Visit Stop Time 12:20 Total Visit Minutes 20 Setting Assessment Location Acute Care Visit Type Note Type Treatment Note Next Note Type Next Note Type Treatment Note Patient Information Identification Type Name ID Wristband Subjective Observations Pt was asleep. He agreed to get up in bedside chair to eat lunch. Pt noted that he feels better than yesterday. Treatment Liquids Trialed Thin Solids Trialed Regular Administration Type Self-Feeding Oral Strategies Upright at 90 degrees Pharyngeal Strategies Sitting Upright (90 deg) Small Bites and Sips Additional Dysphagia Treatment Take frequent breaks between Strategies bites, chew food well. Do not eat if SOB Treatment Activities Pt's lunch was set up on his tray. He was reminded to eat slowly and take frequent breaks between bite to reduce aspiration risk secondary to SOB. Pt indicated he understood. He self-fed his meal. No overt s/sx aspiration were observed. No cough/choke, no wet voicing and no significant change in O2 sat/respiratory status. Pt was observed to safely tolerate his meal. Assessment Patient Response to Treatment Excellent Rehab Potential Good Assessment of Improvement Overall, pt appeared to be feeling better, his breathing was significantly less labored today. Diet Recommendations Recommendations Continue Current Diet Liquids Order Thin Diet Order Regular Medication Recommendations As Tolerated Aspiration Precautions Recommended Precautions Upright at 90 Degrees Frequent Rest Periods Small Bites/Sips Treatment Plan Placement Recommendation after Discharge Home Appropriate for Continued Therapy Yes: Follow up 1x more Dysphagia Goals Pt will safely tolerate least restrictive diet without overt s/sx aspiration to meet nutritional and hydration needs.
[2018-11-22] MEDS: ROSUVASTATIN 10 MG TABLET 20 MG PO (20:42)
--- NOTE | 2018-11-22 21:04 | PC.NURSE ---
2044 - Pt sitting up in a chair. Alert and appropriate. Reports feeling stronger. Denies pain. 96% on 1L NC. Discussed HS meds. IV lasix given. ABX infusing. Reinforced safety and call light use bathroom needs. Pt verbalized understanding. Call light in reach.
[2018-11-23] VITALS (9 sets, daily range): BP systolic 107–128; BP diastolic 64–66; PULSE 69–84; RESP 18–22; TEMP 36.6; O2SAT 93–98
[2018-11-23] MEDS: ALBUTEROL/IPRATROPIUM 3 ML AMPUL INH ×3 (01:36→11:56)
[2018-11-23] MEDS: ALBUTEROL 2.5 MG/3 ML NEB (ADULT) INH (05:13)
[2018-11-23 05:49] LABS: Blood Urea Nitrogen 35 mg/dL (9-20); Calcium 7.1 mg/dL (8.4-10.2); Carbon Dioxide 33 mmol/L (22-32); Chloride 102 mmol/L (98-107); Estimated Glomerular Filt Rate > 60.0 mL/min (>60); Glucose 102 mg/dL (80-110); HEMOLYSIS < 15 (0-50); Potassium 3.5 mmol/L (3.4-5.1); Sodium 140 mmol/L (137-145)
--- NOTE | 2018-11-23 06:08 | PC.NURSE ---
A/O x3, uses call light appropriately, assist into BR, moderate shortness of breath, recovers better than previously, SpO2 >94% on 1L HFNC, coarse breath sounds with long exp wheezes. Requested neb tx twice overnight.
[2018-11-23] MEDS: BUDESONIDE 60 PUFF/DEVICE INHALER INH (08:02)
[2018-11-23] MEDS: CALCIUM GLUCONATE 9.3 MEQ in SODIUM CHLORIDE 0.9% 50 ML 140 ML IV (08:27)
[2018-11-23] MEDS: NYSTATIN SUSP 500,000 UNIT/5 ML UDC 500000 UNIT PO (08:28)
[2018-11-23] MEDS: SOTALOL 80 MG TABLET 120 MG PO (08:28)
[2018-11-23] MEDS: RIVAROXABAN 10 MG TABLET 20 MG PO (08:29)
[2018-11-23] MEDS: POTASSIUM CHLORIDE 20 MEQ/15 ML UDC 40 MEQ PO (08:29)
[2018-11-23] MEDS: METOPROLOL ER 25 MG TABLET PO (08:29)
[2018-11-23] MEDS: predniSONE 20 MG TABLET 40 MG PO (08:29)
[2018-11-23] MEDS: CEFEPIME 2 GM in SODIUM CHLORIDE 0.9% 100 ML 200 ML IV (09:28)
--- NOTE | 2018-11-23 10:22 | CM.DPC ---
Addendum entered by Monse Powell R.N. 11/23/18 10:46: Discharge summary is complete. Went ahead and faxed over to [facility] Original Note: DCP Cont: Discussed patient in team rounds. Dr. Starr was stating that patient may be discharged home today. Discussed home health option, and Dr. Starr agrees with this. Let her know that [facility] does serve that area, and confirmed with Cathryn yesterday, and insurance is accepted as well. Went ahead and had Dr. Starr sign face to face. Will get nursing, P.T, O.T. as well. Discussed plan with and patient. stated, I would feel better knowing that a nurse is coming into the home. Let her know that [facility] can be order, and she is grateful for that. Asked about patient having a primary provider, and she stated that his primary care doctor is Dr. Leydi Case at [facility] in [place]. He also has a pulmonoligist, Dr. Asher, that he sees. Included both names on the face to face as primary doctors. Have not yet received DC orders yet, but went ahead and printed out face sheet, orders, completed face to face, and included history and physical, and latest prog note. Faxed to [facility], indicating that discharge summary would be faxed when completed. Spoke to respiratory therapy regarding [facility], and trilogy, and they are working on having hospitalist sign paperwork. was not aware of trilogy, and floor nurse, Trave unsure if he will need, but will follow up with respiratory therapy. P: DCP to continue to follow closely. Patient could potentially be discharged home today. Will fax discharge summary to [place] when complete. Monse Powell, NUHA/Industrial Hygienist
--- NOTE | 2018-11-23 10:22 | PM.DS.1 ---
History of Present Illness Date Patient Seen: 11/23/18 Chief complaint: Short of breath Narrative: Kevon Downing is a 73-year-old male patient with history significant for COPD, congestive heart failure, paroxysmal atrial fibrillation on Xarelto, hypertension, chronic kidney disease stage III, hyperlipidemia and gout who presents to the emergency department via EMS with 5 days of worsening shortness of breath. The patient states his shortness of breath began 5 days ago and has been progressively worse each day. He has had progressive dyspnea on exertion and weakness. He has had no fevers at home and states he is always cold but has been experiencing chills. The patient has had prior myocardial infarction and placement of 2 stents in addition to AICD. He has been a past smoker of 2 packs per day for over 30 years and is currently followed by Dr. Navarro, pyridine recovery operator and Dr. Dickson, transmission worker with [facility] cardiology. 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 The patient's experience symptoms of upper respiratory infection approximately 1 week ago but no other sick contacts. Patient denies complaints of fevers, headache or dizziness, chest pain or palpitations. He denies abdominal pain, nausea or vomiting though he became nauseous in the ER for which he received Zofran. He has issues of chronic constipation and had a recent gouty flare in the left great toe. Patient is on Xarelto and denies untoward bleeding, bruising or blood in the stool. Upon arrival in the ER the patient was initially afebrile at 100.5 with a heart rate of 107, blood pressure 124/73, respiratory rate of 28 and oxygen saturation 99 on BiPAP initiated by EMS prior to arrival. In the ER the patient received 2 DuoNeb treatments Solu-Medrol 125 mg, Zofran and Tylenol with improvement in his presentation. Transitioned from BiPAP to high-flow nasal cannula at 35%. Chest x-ray revealed left lower lobe pneumonia and normal heart size without evidence pulmonary edema. Twelve lead EKG demonstrates sinus tachycardia with multifocal PVCs, inferior lateral Q-waves and no signs of ischemia. On chemistry the patient has white count of 22.2 with hemoglobin 13.9 hematocrit of 41.4 with platelets of 377. On chemistries is electrolytes are normal however his BUN is 32 with a creatinine of 1.6 with an EGFR of 41.6. His nonfasting glucose was 130. Lactic acid is 2.0 and BNP is notably elevated at 1430. The patient will be admitted to the ICU related to his extremities some presentation and for close monitoring. Discharge Providers Date of admission: 11/17/18 21:57 Discharge Date: 11/23/18 Consults: 11/17/18 22:25 Consult to Dietitian, Adult Routine Comment: Reason For Exam: poor appatite Consult to Discharge Planning Routine Comment: Consult to Respiratory Therapy Evaluate & Treat Comment: Physician Instructions: Evaluate and treat 11/17/18 22:41 Consult to Doweler Routine Comment: 11/20/18 14:29 Consult to Speech Therapy Evaluate & Treat Comment: r/o aspiration Physician Instructions: Evaluate and treat 11/21/18 10:33 Consult to Occupational Therapy Evaluate & Treat Comment: Physician Instructions: Evaluate and treat Consult to Physical Therapy Evaluate & Treat Comment: Physician Instructions: Evaluate and Treat 11/23/18 10:08 Consult to Home Health Routine Comment: Reason For Exam: Nursing, P.T, O.T. Discharge provider: Latesha Starr MD Summary Discharge Diagnosis: 1. Septic shock, present on admission, resolved 2. Acute respiratory failure, present on admission, resolved 3. Acute kidney injury, present on admission, resolved 4. Left lower lobe pneumonia, secondary to parainfluenza virus 5. Acute on chronic systolic heart failure, resolved 6. Persistent atrial fibrillation, present on admission 7. COPD 8. Hypertension 9. Gout 8. Hyperlipidemia Hospital Course: The patient is a 73-year-old male with a history of COPD, hypertension, chronic congestive heart failure and paroxysmal atrial fibrillation on anticoagulation who presented with increasing shortness of breath. The patient had increasing work of breathing and ultimately required intubation. Following intubation he became hypotensive. He required Levophed for 2 days for blood pressure control. He had difficulty with sedation and it was felt that the sedation was leading to some hypotension. In addition the patient received IV hydration to support his blood pressure. He was placed empirically on antibiotics for left lower lobe pneumonia. His respiratory viral panel was positive for parainfluenza virus. The patient was able to ultimately be extubated. Following extubation he was diuresed. He was weaned off oxygen totally. He was seen and evaluated by PT and OT and was able to ambulate independently without difficulty. The patient did develop rapid atrial fibrillation during his hospital stay. He was treated with IV digoxin and sotalol given his marginal blood pressure. His AFib became rate controlled patient remained on the rivaroxaban. On the day of discharge he was started back on his sacubitril-valsartan. Of note the patient underwent a CT scan of the chest. This showed a lingular mass that was concerning for probable lung cancer. This was communicated to both the patient and his . He will follow up with his pyridine recovery operator is a anna barahona and every who will evaluate this as an outpatient. I personally spoke to Dr. Brito on-call for Dr. Navarro also who recommended outpatient follow-up. Patient was deemed appropriate for discharge and discharged home accordingly. Exam Vital Signs (past 8 hours): - 11/23/18 04:40 11/23/18 05:13 11/23/18 08:05 Temperature 97.8 F Pulse Rate 77 71 84 Respiratory Rate 22 18 20 Blood Pressure 128/64 Pulse Oximetry 97 98 97 11/23/18 08:11 11/23/18 08:20 11/23/18 09:01 Temperature 98 F Pulse Rate 72 Respiratory Rate 20 Blood Pressure 107/66 Pulse Oximetry 96 96 93 11/23/18 10:11 Temperature Pulse Rate Respiratory Rate Blood Pressure Pulse Oximetry 96 Fraction of Inspired Oxygen 0.32 Oxygen Delivery Method Room Air Oxygen Flow Rate 0 Narrative Exam Narrative: Pleasant male in no obvious distress Lungs decreased breath sounds with scattered rhonchi at the base Cardiac exam: Irregularly irregular normal S1-S2 Abdomen: Soft and nontender Extremities: No edema Objective Labs Result Diagrams: 11/22/18 05:30 11/23/18 05:16 Labs: Laboratory Results - last 24 hr 11/23/18 05:16 Sodium 140 Potassium 3.5 Chloride 102 Carbon Dioxide 33 H BUN 35 H Creatinine 1.00 Estimated GFR > 60.0 BUN/Creatinine Ratio 35.0 H Glucose 102 Calcium 7.1 L Discharge Plan Discharge Plan Discharge Problem: Acute and chronic respiratory failure with hypoxia, Pneumonia, Acute exacerbation of chronic obstructive pulmonary disease (COPD) Patient Disposition: Home Health Service Transfer to: Home Health, Other Discharge Med Rec/Prescriptions Prescriptions: Continued albuterol sulfate 1.25 mg/3 mL Solution For Nebulization 1.25 mg INHALATION QID PRN (Reason: Wheezing) RF: 0 hydrocodone-acetaminophen 5-325 mg Tablet 1 tab PO Q6H PRN (Reason: Pain, Moderate) RF: 0 sildenafil [Viagra] 25 mg Tablet 25 mg PO DAILY PRN (Reason: Erectile Dysfunction) RF: 0 sotalol 120 mg Tablet 120 mg PO Q12H RF: 0 famotidine [Pepcid AC] 20 mg Tablet 20 mg PO DAILY RF: 0 metoprolol succinate 25 mg Tablet Extended Release 24 Hr 25 mg PO DAILY RF: 0 albuterol sulfate [Ventolin HFA] 90 mcg/actuation Hfa Aerosol Inhaler 2 puff INHALATION Q4-6H PRN (Reason: Wheezing) RF: 0 rosuvastatin [Crestor] 20 mg Tablet 20 mg PO DAILY RF: 0 Symbicort 160-4.5 mcg/actuation Hfa Aerosol Inhaler 2 puff INHALATION BID RF: 0 Xarelto 20 mg Tablet 20 mg PO DAILY RF: 0 Spiriva Respimat 2.5 mcg/actuation Mist 2 puff INHALATION DAILY RF: 0 Entresto 24-26 mg Tablet 1 tab PO BID RF: 0 Provider Discharge Instructions Diet: Low-sodium and Low-cholesterol Activity: As tolerated Oxygen: None indicated Skin/Wound/Dressing Care Report to your healthcare provider any signs of infection, such as:: chills, fever and night sweats Discharge Data Attending Provider: Wing Trevino Admit Date/Time: 11/17/18 21:57
--- NOTE | 2018-11-23 10:30 | P.DS_ITS ---
History of Present Illness Date Patient Seen: 11/23/18 Chief complaint: Short of breath Narrative: Kevon Downing is a 73-year-old male patient with history significant for COPD, congestive heart failure, paroxysmal atrial fibrillation on Xarelto, hypertension, chronic kidney disease stage III, hyperlipidemia and gout who presents to the emergency department via EMS with 5 days of worsening shortness of breath. The patient states his shortness of breath began 5 days ago and has been progressively worse each day. He has had progressive dyspnea on exertion and weakness. He has had no fevers at home and states he is always cold but has been experiencing chills. The patient has had prior myocardial i nfarction and placement of 2 stents in addition to AICD. He has been a past smoker of 2 packs per day for over 30 years and is currently followed by Dr. Navarro, car rental service attendant and Dr. Dickson, fashion illustrator with [facility] cardiology. 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 The patient's experience symptoms of upper respiratory infection approximately 1 week ago but no other sick contacts. Patient denies complaints of fevers, headache or dizziness, chest pain or palpitations. He denies abdominal pain, nausea or vomiting though he became nauseous in the ER for which he received Zofran. He has issues of chronic constipation and had a recent gouty flare in the left great toe. Patient is on Xarelto and denies untoward bleeding, bruising or blood in the stool. Upon arrival in the ER the patient was initially afebrile at 100.5 with a heart rate of 107, blood pressure 124/73, respiratory rate of 28 and oxygen saturation 99 on BiPAP initiated by EMS prior to arrival. In the ER the patient received 2 DuoNeb treatments Solu-Medrol 125 mg, Zofran and Tylenol with improvement in his presentation. Transitioned from BiPAP to high-flow nasal cannula at 35%. Chest x-ray revealed left lower lobe pneumonia and normal heart size without evidence pulmonary edema. Twelve lead EKG demonstrates sinus tachycardia with multifocal PVCs, inferior lateral Q-waves and no signs of ischemia. On chemistry the patient has white count of 22.2 with hemoglobin 13.9 hematocrit of 41.4 with platelets of 377. On chemistries is electrolytes are normal however his BUN is 32 with a creatinine of 1.6 with an EGFR of 41.6. His nonfasting glucose was 130. Lactic acid is 2.0 and BNP is notably elevated at 1430. The patient will be admitted to the ICU related to his extremities some presentation and for close monitoring. Discharge Providers Date of admission: 11/17/18 21:57 Discharge Date: 11/23/18 Consults: 11/17/18 22:25 Consult to Dietitian, Adult Routine Comment: Reason For Exam: poor appatite Consult to Discharge Planning Routine Comment: Consult to Respiratory Therapy Evaluate & Treat Comment: Physician Instructions: Evaluate and treat 11/17/18 22:41 Consult to Machine Shop Specialist Routine Comment: 11/20/18 14:29 Consult to Speech Therapy Evaluate & Treat Comment: r/o aspiration Physician Instructions: Evaluate and treat 11/21/18 10:33 Consult to Occupational Therapy Evaluate & Treat Comment: Physician Instructions: Evaluate and treat Consult to Physical Therapy Evaluate & Treat Comment: Physician Instructions: Evaluate and Treat 11/23/18 10:08 Consult to Home Health Routine Comment: Reason For Exam: Nursing, P.T, O.T. Discharge provider: Latesha Starr MD Summary Discharge Diagnosis: 1. Septic shock, present on admission, resolved 2. Acute respiratory failure, present on admission, resolved 3. Acute kidney injury, present on admission, resolved 4. Left lower lobe pneumonia, secondary to parainfluenza virus 5. Acute on chronic systolic heart failure, resolved 6. Persistent atrial fibrillation, present on admission 7. COPD 8. Hypertension 9. Gout 8. Hyperlipidemia Hospital Course: The patient is a 73-year-old male with a history of COPD, hypertension, chronic congestive heart failure and paroxysmal atrial fibrillation on anticoagulation who presented with increasing shortness of breath. The patient had increasing work of breathing and ultimately required intubation. Following intubation he became hypotensive. He required Levophed for 2 days for blood pressure control. He had difficulty with sedation and it was felt that the sedation was leading to some hypotension. In addition the patient received IV hydration to support his blood pressure. He was placed empirically on antibiotics for left lower lobe pneumonia. His respiratory viral panel was positive for parainfluenza virus. The patient was able to ultimately be extubated. Following extubation he was diuresed. He was weaned off oxygen totally. He was seen and evaluated by PT and OT and was able to ambulate independently without difficulty. The patient did develop rapid atrial fibrillation during his hospital stay. He was treated with IV digoxin and sotalol given his marginal blood pressure. His AFib became rate controlled patient remained on the rivaroxaban. On the day of discharge he was started back on his sacubitril-valsartan. Of note the patient underwent a CT scan of the chest. This showed a lingular mass that was concerning for probable lung cancer. This was communicated to both the patient and his . He will follow up with his car rental service attendant Dr. stevie barahona and every who will evaluate this as an outpatient. I personally spoke to Dr. Brito on-call for Dr. Navarro also who recommended outpatient follow-up. Patient was deemed appropriate for discharge and discharged home accordingly. Exam Vital Signs (past 8 hours): - 11/23/18 04:40 11/23/18 05:13 11/23/18 08:05 Temperature 97.8 F Pulse Rate 77 71 84 Respiratory Rate 22 18 20 Blood Pressure 128/64 Pulse Oximetry 97 98 97 11/23/18 08:11 11/23/18 08:20 11/23/18 09:01 Temperature 98 F Pulse Rate 72 Respiratory Rate 20 Blood Pressure 107/66 Pulse Oximetry 96 96 93 11/23/18 10:11 Temperature Pulse Rate Respiratory Rate Blood Pressure Pulse Oximetry 96 Fraction of Inspired Oxygen 0.32 Oxygen Delivery Method Room Air Oxygen Flow Rate 0 Narrative Exam Narrative: Pleasant male in no obvious distress Lungs decreased breath sounds with scattered rhonchi at the base Cardiac exam: Irregularly irregular normal S1-S2 Abdomen: Soft and nontender Extremities: No edema Objective Labs Result Diagrams: 11/22/18 05:30 11/23/18 05:16 Labs: Laboratory Results - last 24 hr 11/23/18 05:16 Sodium 140 Potassium 3.5 Chloride 102 Carbon Dioxide 33 H BUN 35 H Creatinine 1.00 Estimated GFR > 60.0 BUN/Creatinine Ratio 35.0 H Glucose 102 Calcium 7.1 L Discharge Plan Discharge Plan Discharge Problem: Acute and chronic respiratory failure with hypoxia, Pneumonia, Acute exacerbation of chronic obstructive pulmonary disease (COPD) Patient Disposition: Home Health Service Transfer to: Home Health, Other Discharge Med Rec/Prescriptions Prescriptions: Continued albuterol sulfate 1.25 mg/3 mL Solution For Nebulization 1.25 mg INHALATION QID PRN (Reason: Wheezing) RF: 0 hydrocodone-acetaminophen 5-325 mg Tablet 1 tab PO Q6H PRN (Reason: Pain, Moderate) RF: 0 sildenafil [Viagra] 25 mg Tablet 25 mg PO DAILY PRN (Reason: Erectile Dysfunction) RF: 0 sotalol 120 mg Tablet 120 mg PO Q12H RF: 0 famotidine [Pepcid AC] 20 mg Tablet 20 mg PO DAILY RF: 0 metoprolol succinate 25 mg Tablet Extended Release 24 Hr 25 mg PO DAILY RF: 0 albuterol sulfate [Ventolin HFA] 90 mcg/actuation Hfa Aerosol Inhaler 2 puff INHALATION Q4-6H PRN (Reason: Wheezing) RF: 0 rosuvastatin [Crestor] 20 mg Tablet 20 mg PO DAILY RF: 0 Symbicort 160-4.5 mcg/actuation Hfa Aerosol Inhaler 2 puff INHALATION BID RF: 0 Xarelto 20 mg Tablet 20 mg PO DAILY RF: 0 Spiriva Respimat 2.5 mcg/actuation Mist 2 puff INHALATION DAILY RF: 0 Entresto 24-26 mg Tablet 1 tab PO BID RF: 0 Provider Discharge Instructions Diet: Low-sodium and Low-cholesterol Activity: As tolerated Oxygen: None indicated Skin/Wound/Dressing Care Report to your healthcare provider any signs of infection, such as:: chills, fever and night sweats Discharge Data Attending Provider: Wing Trevino Admdavion Date/Time: 11/17/18 21:57
--- NOTE | 2018-11-23 11:20 | PT.IPTN ---
Current Diagnoses Sepsis, unspecified organism (11/17/18) Hyperlipidemia, unspecified (11/17/18) Persistent atrial fibrillation (11/17/18) Chronic systolic (congestive) heart failure (11/17/18) Acute on chronic systolic (congestive) heart failure (11/17/18) Hypotension, unspecified (11/17/18) Lobar pneumonia, unspecified organism (11/17/18) Pneumonia, unspecified organism (11/17/18) Chronic obstructive pulmonary disease with (acute) exacerbation (11/17/18) Acute respiratory failure with hypoxia (11/17/18) Acute and chronic respiratory failure with hypoxia (11/17/18) Gout, unspecified (11/17/18) Chronic kidney disease, unspecified (11/17/18) Severe sepsis with septic shock (11/17/18) Personal history of other diseases of the circulatory system (11/17/18) Physical Therapy Treatment Note M2 PT-IP Current Condition Start: 11/21/18 17:23 Freq: NEEDED Status: Active Protocol: Document 11/21/18 14:26 AB (Rec: 11/21/18 17:38 AB [id number]) Physical Therapy Current Condition Current Condition Evaluation Date 11/21/18 Treatment Diagnosis septic shock; CHF; respiratory failure; difficulty in walking Onset Date 11/17/18 Precautions Other Precautions droplet precaution O2 sat Weight Bearing Status Weight Bearing Status Weight Bear as Tolerated M3 PT-IP Subjective Start: 11/21/18 17:23 Freq: NEEDED Status: Active Protocol: Document 11/23/18 11:20 GGD (Rec: 11/23/18 11:53 GGD [id number]) Subjective Physical Therapy Visit Type Type Treatment Note Visit Start Time 11:00 Visit Stop Time 11:20 Total Visit Minutes 20 Number of ADULT SCHOOL COUNSELOR Visits 2 Physical Therapy Visit Comments Patient Comments Pt states he feeling better. M4 PT-IP Mobility and Gait Start: 11/21/18 17:23 Freq: NEEDED Status: Active Protocol: Document 11/23/18 11:20 GGD (Rec: 11/23/18 11:53 GGD [id number]) PT-Transfer Assessment Sit to and From Stand Sit to and from Stand Standby Assistance Use of Upper Extremities Equipment Transfer Assistive Device Gait Belt Front Wheeled Walker Orthotic/Prosthetic Devices or Brace: No Transfers Transfer Destination Bedside Commode Transfer Ability Level of Assist Contact Guard Assistance 1 Person Assistance Use of Upper Extremities Comments Mobility Comments transfer to shower with OT Gait Assessment Gait Gait Assistance Required: Standby Assistance Contact Guard Assist Distance (Feet) 160 Assistive Devices Assistive Device None Gait Belt Front Wheeled Walker Gait Deviations General Gait Pattern Decreased Stride Length Decreased Feet Clearance Factors Limiting Gait Function Factors Limiting Gait Function Decreased Activity Tolerance Decreased Strength Poor Balance Comments Gait Comments O2 RA 92% after activity. ambulated 80 feet with FWW with SBA and then 180 feet without AD with CGA. Stair Climbing Assessment Evaluation Level of Assist On Stairs Contact Guard Assistance Devices Stair Climbing Assistive Devices Front Wheel Walker Technique/Endurance Stair Climbing Direction Ascend and Descend Stair Climbing Technique Step to Step Number of Steps Climbed 1 Query Text: Stair Climbing Set # Repetitions (reps) 1 M5 PT-IP Objective Assessments Start: 11/21/18 17:23 Freq: NEEDED Status: Active Protocol: Document 11/21/18 14:26 AB (Rec: 11/21/18 17:38 AB [id number]) Orientation Orientation/Cognition Level of Alertness Alert Orientation Name Place Situation Language Function Ability Hard of Hearing Safety Awareness Decreased Safety Awareness Gross Range of Motion Lower Extremity ROM Assessment Within Functional Limits Strength Lower Extremity Strength Assessment Bilaterally Impaired Comments Strength Comments RLE 3+/5 LLE 4-/5 Coordination Assessment Gross Coordination Gross Coordination WNL Sensation Assessment Sensation Gross Sensation WNL Muscle Tone Muscle Tone WNL Yes M6 PT-IP Treatment Start: 11/21/18 17:23 Freq: NEEDED Status: Active Protocol: Document 11/21/18 14:26 AB (Rec: 11/21/18 17:38 AB [id number]) Physical Therapy Treatment Education Education Provided Safety M7 PT-IP Assessment and Plan Start: 11/21/18 17:23 Freq: NEEDED Status: Active Protocol: Document 11/23/18 11:20 GGD (Rec: 11/23/18 11:53 GGD [id number]) PT Summary Assessment and Plan Summary Assessment Summary Pt improving with mobility. He was safe and stable with stair mobility with FWW. He was able to progress gait without assistive device with increase in base of support, but no LOB. Pt is safe with gait with FWW. He is safe for home D/C when medically stable . Frequency of Treatment Frequency Of Treatment Once a Day Treatment Plan Physical Therapy Treatment Plan Bed Mobility Training Transfer Training Gait Training Therapeutic Exercise Balance Retraining Discharge Planning Hot or Cold Pack Neuromuscular Re-ed Coordination Retraining Manual Therapy Recommendations To Nursing Amount of Assist Needed 1 Person Assist Discharge Recommendations PT Discharge Recommendations Home with Assistance Home Health Outpatient PT
--- NOTE | 2018-11-23 11:45 | OT.IP.TRT ---
Current Diagnoses Sepsis, unspecified organism (11/17/18) Hyperlipidemia, unspecified (11/17/18) Persistent atrial fibrillation (11/17/18) Chronic systolic (congestive) heart failure (11/17/18) Acute on chronic systolic (congestive) heart failure (11/17/18) Hypotension, unspecified (11/17/18) Lobar pneumonia, unspecified organism (11/17/18) Pneumonia, unspecified organism (11/17/18) Chronic obstructive pulmonary disease with (acute) exacerbation (11/17/18) Acute respiratory failure with hypoxia (11/17/18) Acute and chronic respiratory failure with hypoxia (11/17/18) Gout, unspecified (11/17/18) Chronic kidney disease, unspecified (11/17/18) Severe sepsis with septic shock (11/17/18) Personal history of other diseases of the circulatory system (11/17/18) Occupational Therapy Treatment Note M2 OT-IP Current Condition Start: 11/21/18 14:45 Freq: Status: Active Protocol: Document 11/22/18 14:04 TONYA (Rec: 11/22/18 14:33 PJ [id number]) Occupational Therapy Current Condition Current Condition Evaluation Date 11/22/18 Treatment Diagnosis decr'd act arlen,ADLS, mobility w/DX: acute CHF, PNA requiring intubation Diagnosis Onset Date 11/17/18 Post Operative Precautions Other Precautions droplet precautions, heated high flow O2 flow rate 40, FIO2 .32, watch O2 sats M3 OT- IP Subjective and Pain Start: 11/21/18 14:45 Freq: Status: Active Protocol: Document 11/23/18 11:45 PJJorge (Rec: 11/23/18 12:27 TONYA [id number]) OT- Subjective Occupational Therapy Visit Type Type Treatment Note Visit Start Time 11:07 Visit Stop Time 11:45 Total Visit Minutes 38 Notes Pt's here at end of session. RN states pt plans to d/c home today. Occupational Therapy Visit Comments Patient Comments I would love a shower. Patient/Caregiver Goals to go home today, get his strength back OT Pain Assessment Pain When Pain Assessed After Treatment Pain Present Pain Present Denied Pain M4 OT- IP ADL's Start: 11/21/18 14:45 Freq: Status: Active Protocol: Document 11/23/18 11:45 TONYA (Rec: 11/23/18 12:27 PJ [id number]) OT ADL-Grooming General Evaluation Grooming Ability Independent Areas Needing Assistance Combing/Brushing Hair OT ADL-Dressing General Eval Upper Body Dressing Ability Independent Lower Body Dressing Ability Independent Areas Needing Assistance Pull-Over Shirt Underpants/Brief Pants/Shorts Socks Shoes Comments OT Dressing Comments Pt dressed self in street clothes for d/c. Provided education re: energy conservation and pacing. Pt took 2 seated rests during dressing after shower. Provided education re: pursed lip breathing. OT ADL-Bathing Bathing Type Bathing Type Shower General Evaluation Bathing Ability Standby Assistance Areas Needing Assistance Retrieving/Setting Up Items Devices Bathing Equipment Shower Chair without Arms Grab Bars Comments OT Bathing Comments Pt stood for 75% of shower, sat to wash lower legs and feet. Consistent use of grab bars throughout. states she will obtain grab bars and seat for pt's shower stall at home. M5 OT- IP IADL's Start: 11/21/18 14:45 Freq: Status: Active Protocol: Document 11/22/18 14:04 PJM (Rec: 11/22/18 14:33 [facility] [id number]) OT-Instrumental Activities of Daily Living Deficits IADL Deficits Identified Deficits Home Safety Awareness Awareness of Need for Assistance at Home Good Awareness Medication Management Medication Management No Deficits Identified Money Management Money Management Caregiver Provides Assistance Money Management Comments manages finances at home Meal Preparation Meal Preparation Caregiver Provides Assist Meal Preparation Comments does all meal prep at home Car Mechanic Car Mechanic Caregiver Provides Assist Car Mechanic Comments does all patient ombudsperson , pt goes with her to grocery store Driving Driving Caregiver Provides Assist Driving Comments to assist until pt able M6 OT- IP Functional Cognition Start: 11/21/18 14:45 Freq: Status: Active Protocol: Document 11/23/18 11:45 PJM (Rec: 11/23/18 12:27 [facility] [id number]) Cognitive Factors Limiting Selfcare Function Cognitive Ability Level of Alertness Alert Attention Span Ability Capable of Focused Attention Capable of Sustained Attention Ability to Follow Commands Able to Follow One Step Commands Safety Awareness No Deficits Noted Cognitive Comments Cognitive Assessment Comments Pt alert and oriented with good safety awareness this session. M7 OT- IP Mobility and Balance Start: 11/21/18 14:45 Freq: Status: Active Protocol: Document 11/23/18 11:45 PJM (Rec: 11/23/18 12:27 PJ [id number]) OT-Transfer Assessment Sit to and From Stand Sit to and from Stand Independent Transfers Transfer Ability Independent Technique Transfer Destination Chair Shower Stall Transfer Technique Stand Step Pivot Devices Transfer Assistive Devices Gait Belt OT- Gait Assessment Gait Gait Assistance Required: Standby Assistance Distance (Feet) 50 Assistive Devices Assistive Device Gait Belt Front Wheeled Walker Comments Gait Ability Comments No loss of balance noted OT- Balance Assessment Sitting Balance and Reactions Static Sitting Balance Ability Good Dynamic Sitting Balance Ability Good Standing Balance and Reactions Static Standing Balance Ability Good Dynamic Standing Balance Ability Good Comments Other Balance Tests/Deviations/Treatment during standing shower and : lower body clothing management M9 OT- IP Assessment and Plan Start: 11/21/18 14:45 Freq: Status: Active Protocol: Document 11/23/18 11:45 PJM (Rec: 11/23/18 12:27 PJ [id number]) OT Summary Assessment and Plan Summary Progress Towards Goals Safe For Discharge Goals Met Assessment Summary Pt has made significant improvement overnight and is now on room air with O2 sats 95 after shower and 93-95 during lower body dressing. Pt initiating rest breaks during self care tasks and demonstrates pursed lip breathing technique after education/demo. will obtain bathroom safety equipt for pt. All OT goals achieved for this admission. Frequency of Treatment Frequency Of Treatment Discharge Discharge Recommendations OT Discharge Recommendations Home with 17/01 Assist Home Equipment Needs grab bars, shower seat
--- NOTE | 2018-11-23 11:55 | ST.IPDYTX ---
Care Team Visit Care Team Role Provider Type Kentrell Manuel DO Emergency Provider Physician Specialty: Emergency Medicine Address: [address] [place] [address], [id number] Email: [email or web address] RAMIREZ Freeman Admit Provider Physician Attending Provider Specialty: Internal Medicine Address: [address] [place] [address], [id number] Email: [employer]ER Dysphagia Treatment [employer] Dysphagia Treatment Start: 11/21/18 10:45 Freq: Status: Active Protocol: Document 11/23/18 11:47 LNK (Rec: 11/23/18 11:55 LNK [id number]) Dysphagia Treatment Session Time Visit Start Time 10:45 Visit Stop Time 11:00 Total Visit Minutes 15 Setting Assessment Location Acute Care Visit Type Note Type Treatment Note Patient Information Identification Type Name ID Wristband Subjective Observations Pt upright in bedside chair with family. Pt on room air. Treatment Administration Type Self-Feeding Oral Strategies Upright at 90 degrees Pharyngeal Strategies Sitting Upright (90 deg) Small Bites and Sips Additional Dysphagia Treatment Take frequent breaks between Strategies bites, chew food well. Do not eat if SOB Treatment Activities Pt /family education. Discussed discharge with pt and reviewed safe swallow strategies. He was reminded to eat slowly and take frequent breaks between bite to reduce aspiration risk secondary to SOB. Assessment Assessment of Improvement Overall, pt appeared to be feeling better, his breathing was significantly less labored again today. Diet Recommendations Recommendations Continue Current Diet Liquids Order Thin Diet Order Regular Medication Recommendations As Tolerated Aspiration Precautions Recommended Precautions Upright at 90 Degrees Frequent Rest Periods Small Bites/Sips Treatment Plan Placement Recommendation after Discharge Home
== END 2018-11-23 12:30 | disposition home health service (06) | DRG 871 ==
LOC: ED 21:48 → ICU 21:57
PROVIDERS: Internal Medicine; Nurse Practitioner Gerontology; Admitting Provider Nurse Practitioner Adult Health; Emergency Provider Emergency Medicine; Visit Provider Nurse Practitioner Adult Health
DX: A41.89 Other specified sepsis (principal); J96.21 Acute and chronic respiratory failure with hypoxia; J12.2 Parainfluenza virus pneumonia; R65.21 Severe sepsis with septic shock; I50.23 Acute on chronic systolic (congestive) heart failure; G93.41 Metabolic encephalopathy; J44.1 Chronic obstructive pulmonary disease with (acute) exacerbation; I13.0 Hypertensive heart and chronic kidney disease with heart failure and stage 1 through stage 4 chronic kidney disease, or unspecified chronic kidney disease; I48.1 Persistent atrial fibrillation; C34.02 Malignant neoplasm of left main bronchus; E87.2 Acidosis; N18.3 Chronic kidney disease, stage 3 (moderate); B97.89 Other viral agents as the cause of diseases classified elsewhere; E78.5 Hyperlipidemia, unspecified; I25.10 Atherosclerotic heart disease of native coronary artery without angina pectoris; Z87.891 Personal history of nicotine dependence; Z79.01 Long term (current) use of anticoagulants
CPT/HCPCS: 36415; 36569; 36591; 36592; 36600; 71045; 71250; 74176; 80048; 80053; 82805; 83605; 83735; 83880; 84100; 84132; 84145; 84484; 84550; 85025; 87070; 87077; 87186; 87205; 87449; 87633; 87797; 92526; 92610; 93005; 93010; 93306; 94002; 94003; 94010; 94640; 94660; 94760; 94762; 94770; 94799; 96365; 96375; 97116; 97162; 97165; 97535; 99283; 99291; 99292; J0610; J0692; J1160; J1642; J1650; J1940; J1956; J2060; J2250; J2270; J2405; J2930; J3010; J7613; Q9957